=== PATIENT | female | born 2000 | race Two or more races ===

== ENCOUNTER 2024-02-07 08:53 | Outpatient (REF) | payer OTHER, SELFPAY ==
[2024-02-07 09:02] LABS: Bilirubin Urine NEGATIVE (NEGATIVE); Blood Urine NEGATIVE (NEGATIVE); Clarity Urine CLEAR (CLEAR); Color Urine LT. YELLOW (YELLOW); Glucose Urine UA NEGATIVE (NEGATIVE); Ketones Urine NEGATIVE (NEGATIVE); Leukocyte Esterase Urine TRACE (NEGATIVE); Nitrite Urine NEGATIVE (NEGATIVE); Protein Urine NEGATIVE (NEG/TRACE); Specific Gravity Urine 1.025 (1.005-1.025); Urobilinogen Urine 0.2 EU/dL (0.2-1.0)
[2024-02-07 09:17] LABS: RBC Urine 0-2 #/HPF (0-2)
[2024-02-07 09:18] LABS: Bacteria Urine TRACE #/HPF (NONE SEEN); Cast Seen? NONE SEEN #/LPF (NONE SEEN); Crystals Seen? None Seen #/HPF (None Seen); Mucus Urine NONE SEEN (NONE SEEN); Squamous Epithelial Cell Urine MODERATE #/LPF (NONE/RARE)
== END 2024-02-07 08:54 | disposition home or self-care (01) ==
LOC: LAB 08:53
PROVIDERS: PCP Nurse Practitioner Family; Visit Provider Nurse Practitioner Family
DX: R30.0 Dysuria (principal)
CPT/HCPCS: 81001; 87086

== ENCOUNTER 2024-02-22 08:25 | Outpatient (OUT) | payer OTHER, SELFPAY ==
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
--- NOTE | 2024-02-22 08:28 | US_ITS ---
The [address] [address] Patient Name: NICOLETTE CLEVELAND MRN: [id number] date: 2000 Sex: F Assigned Patient Location: Current Patient Location: Accession/Order Number: [id number] Exam Date: 02/22/2024 08:30 Report Date: 02/22/2024 13:07 At the request of: LUPE RICHMOND Procedure: US renal bladder EXAMINATION: US renal bladder HISTORY: Urgency Of Urinary R39.15 COMPARISON: No relevant comparison available. TECHNIQUE: Ultrasound examination was performed of the kidneys and urinary bladder. FINDINGS: RIGHT KIDNEY: Contains a few nonobstructing 3 mm stones. Normal renal cortical parenchymal echogenicity. Color Doppler demonstrates blood flow within the kidney. Kidney: 10.3 x 5.0 x 6.2 cm LEFT KIDNEY: No evidence of pelvocaliectasis, mass, or calculi. Normal renal cortical parenchymal echogenicity. Color Doppler demonstrates blood flow within the kidney. Kidney: 11.3 x 5.5 x 5.1 cm BLADDER: No visible wall thickening, mass, or calculi. Post void residual: 5 mL URETERAL JETS: Visualized bilaterally. US/US renal bladder IMPRESSION: 1. Nonobstructing right nephrolithiasis. 2. Otherwise left kidney and urinary bladder. Electronically authenticated by: LOW LE Date: 02/22/2024 13:07
[2024-02-22 10:15] LABS: Bilirubin Urine NEGATIVE (NEGATIVE); Blood Urine NEGATIVE (NEGATIVE); Clarity Urine CLEAR (CLEAR); Color Urine LT. YELLOW (YELLOW); Glucose Urine UA NEGATIVE (NEGATIVE); Ketones Urine NEGATIVE (NEGATIVE); Leukocyte Esterase Urine NEGATIVE (NEGATIVE); Nitrite Urine NEGATIVE (NEGATIVE); Protein Urine NEGATIVE (NEG/TRACE); Specific Gravity Urine <=1.005 (1.005-1.025); Urobilinogen Urine 0.2 EU/dL (0.2-1.0)
[2024-02-22 10:25] LABS: Bacteria Urine NONE SEEN #/HPF (NONE SEEN); Mucus Urine NONE SEEN (NONE SEEN); RBC Urine NONE SEEN #/HPF (0-2); Squamous Epithelial Cell Urine FEW #/LPF (NONE/RARE); WBC Urine NONE SEEN #/HPF (NONE SEEN)
== END 2024-02-22 08:26 | disposition home or self-care (01) ==
LOC: US 08:25
PROVIDERS: PCP Nurse Practitioner Family; Visit Provider Nurse Practitioner Family
DX: R39.15 Urgency of urination (principal); R35.0 Frequency of micturition; N20.0 Calculus of kidney
CPT/HCPCS: 76770; 81001; 87086

== ENCOUNTER 2024-06-27 09:11 | Outpatient (OUT) | payer OTHER, SELFPAY ==
--- OUTSIDE RECORDS SUMMARY | 2024-06-27 09:28 | XMS_ITS | CCD ---
Author Organization [facility] Care Team Providers Care Geoduck Diver Name Role Phone Charity Fenton Attending Provider [phone] Maritza Singh Unavailable NON STAFF Primary Care Provider UnavailCARLEE Al Attending Provider NON STAFF Primary Care Provider UnavailDO Richi Eduardo Attending Provider NON STAFF Primary Care Unavailable Richi Liu Admitting Unavailable Richi Liu Attending Unavailable NON STAFF Primary Care Unavailable Maritza Singh Admitting Unavailable Maritza Singh Attending Unavailable JOCELINE RICHMOND Primary Care Physician [phone] DANYELLE NOLEN Primary Care Unavailable Divya Steven Attending Unavailable JOCELINE RICHMOND Referring Unavailable DANYELLE NOLEN Primary Care Unavailable Unavailable Primary Care Provider UnavailLY Leo Attending Unavailable Unavailable Unavailable Unavailable Medications Current Medications Medication Drug Class(es) Dates Sig (Normalized) Sig (Original) ciprofloxacin 500 mg oral tablet (1 source) Quinolone Antimicrobial Start: 07-18-2024 End: 07-18-2024 ciprofloxacin HCl 500 mg tab(s) (CIPRO) escitalopram 10 mg oral tablet (1 source) Serotonin Reuptake Inhibitor Start: 04-17-2024 take 1 tablet by mouth once daily Lexapro 10 mg Tab 10 mg = 1 tab(s), Oral, Daily, Refills(s) 0 Start Date: 04/17/24 Status: Ordered iv contrast (will be provided with radiology test) (2 sources) Start: 06-07-2024 iv contrast (will be provided with radiology test) Indications: Recurrent UTI , Urinary frequency , Urinary tract infection without hematuria, site unspecified CT Urogram WO/W Inject, intravenously, once for 1 dose.No IV access, insert saline lock prior to the beginning of sedation, infusion, injection of imaging exam. Discontinue saline lock post exam. If Pt. has a central line or IVAD, may access for administration according to line specific nursing protocol. Once exam is complete flush line and de-access according to line specific nursing protocol in the CT contrast administration guidelines link. 1 Each 0 06/07/2024 Active levonorgestrel 0.856906 mg/hr intrauterine system (4 sources) Progestin, Progestin-containin g Intrauterine Device Start: 04-17-2024 Kyleena 19.5 mg intrauterine device Refills(s) 0 Start Date: 04/17/24 Status: Ordered levonorgestrel ( KYLEENA) 17.5 mcg/24 hr (5 yrs) 19.5 mg IUD 1 Each by INTRAUTERINE route one time only. 0 Active Kyleena 19.5 MG as directed Intrauterine Active lidocaine hydrochloride 0.02 mg/mg topical gel (1 source) Antiarrhythmic, Amide Local Anesthetic Start: 07-18-2024 End: 07-18-2024 lidocaine urojet 2 % 6 mL topical gel (GLYDO) oxybutynin chloride 5 mg oral tablet (1 source) Cholinergic Muscarinic Antagonist Start: 04-17-2024 End: 06-16-2024 take 1 tablet by mouth three times daily as needed oxybutynin 5 mg Tab 5 mg = 1 tab(s), Oral, TID, PRN for urinary discomfort, X 30 day(s), # 30 tab(s), Refills(s) 1, Pharmacy: [id number], 175, cm, 04/17/24 13:52:00 EDT, Height/Length Dosing, 74, kg, 04/17/24 13:52:00 EDT, Weight Dosing Start Date: 04/17/24 Stop Date: 06/16/24 Status: Ordered 1000 ml sodium chloride 9 mg/ml injection (1 source) Start: 06-07-2024 End: 06-07-2024 0.9 % sodium chloride (NACL 0.9%) infusion Indications: Recurrent UTI , Urinary frequency , Urinary tract infection without hematuria, site unspecified Administer at rate defined per CT contrast administration specifications. To be provided with radiology test. 150 mL 0 06/07/2024 06/07/2024 Active Completed/Discontinued Medications Medication Drug Class(es) Dates [...] MG Oral for 5 Days Not-Taking nystatin 705078 unt/ml oral suspension (1 source) Polyene Antifungal Start: 06-08-2020 take 4 mL by mouth twice daily Nystatin 350359 UNIT/ML 4 ml Mouth/Throat Twice a day for 10 day(s) Swish and spit May, Not-Taking Sertraline (1 source) Serotonin Reuptake Inhibitor Zoloft Not-Taking Problems Active Problems Problem Classification Problem Date Documented Da te Episodic/Chronic Anxiety disorders (1 source) Generalized anxiety disorder 02-08-2020 Chronic Calculus of urinary tract (2 sources) Kidney stone; Translations: [Calculus of kidney] Onset: 04-16-2024 Episodic Genitourinary symptoms and ill-defined conditions (7 sources) Dysuria; Translations: [Dysuria] Onset: 02-24-2023 Episodic Mood disorders (1 source) Mild depression 06-27-2020 Chronic Mycoses (2 sources) Candidiasis of mouth; Translations: [Candidiasis of vagina] Resolved: 06-26-2019 06-27-2020 Episodic Other diseases of bladder and urethra (1 source) Disorder of bladder; Translations: [Other specified disorders of bladder] Onset: 04-17-2024 Chronic Other diseases of bladder and urethra (1 source) Spasm of bladder 04-17-2024 Chronic Otitis media and related conditions (1 source) Acute right otitis media 06-27-2020 Episodic Pneumonia (except that caused by tuberculosis or sexually transmitted disease) (1 source) Pneumonia 02-08-2014 Episodic Urinary tract infections (3 sources) Recurrent urinary tract infection; Translations: [Urinary tract infection, site not specified] Onset: 06-07-2024 06-07-2024 Episodic Past or Other Problems Problem Classification Problem Date Documented Date Episodic/Chronic Inflammatory diseases of female pelvic organs (1 source) Abscess of vulva Resolved: 06-26-2019 06-27-2019 Episodic Other ear and sense organ disorders (1 source) Perichondritis of pinna Resolved: 06-26-2019 06-27-2019 Episodic Other female genital disorders (1 source) Vaginal discharge Resolved: 06-26-2019 06-27-2019 Episodic Other female genital disorders (1 source) Vaginal lesion Resolved: 06-26-2019 06-27-2019 Episodic Spondylosis; intervertebral disc disorders; other back problems (1 source) Backache Resolved: 06-26-2019 06-27-2019 Episodic Unclassified (1 source) Patient encounter status Resolved: 06-12-2019 06-13-2019 Results Test Name Value Interpretation Reference Range Facility [facility] 06-07-2024 CNOV Office Visit (UROLLN ) SHANDRA BRIDGES ([id number]) 2000 F Date Time Provider Department 06/07/24 3:40 PM LY STEEL During your visit today, we recorded the following information about you: Pulse Blood pressure Weight Last Period 71/minute 126/81 74.8 kg 05/26/24 Rome Marlyn 06/07/2024 4:18 PM Signed Shandra Bridges [address] [place] [address] [place] [address] is a 23 year old female with complaints of: Recurrent UTIs with associated frequency and feeling of pressure. HISTORY OF PRESENT ILLNESS: Location: bladder, urethra Pain Character: burning Severity Scale: moderate Duration: recurrent over several months No past medical history on file. No past surgical history on file. No family history on file. MEDICATIONS: No current outpatient medications on file. No current facility-administered medications for this visit. ALLERGY: ALLERGIES Not on File REVIEW OF SYSTEMS GENERAL: No fever, no fatigue and no weight loss. HEAD AND NECK: No headache, no blurred vision and no hearing loss. CARDIOVASCULAR: No chest pain, no palpitations and no leg edema. RESPIRATORY: No cough, wheezing and no shortness of breath. : As indicated in HPI. GI: No epigastric discomfort, no blood in stool and no changes in bowel habits. MUSCLOSKELETAL: No neck pain, no back anin and no joint pain. SKIN: No varicose veins, no rash and no abnormal itching. NEUROLOGICAL: No numbness, no seizures and no tremor. BLOOD: No ekimosis, no hematomas or no bleeding from the gums. PHYSICAL EXAM: GENERAL: Alert, oriented and in no distress. ABDOMEN: Soft, non tender with no masses or organomegaly. No CVA tenderness. HERNIA: Negative EXTREMITIES: No leg edema, No joint swelling GENITALIA: Deferred IMPRESSION (Diagnostic Possibilities) / PLAN (Management Options): Recurrent UTIs + Frequency: Explained the possible causes of her recurrent UTI and the course of treatment we will take: Cystoscopy to discover why she is having the discomfort, especially since one of her cultures came back negative. P= UA + culture + CTU Schedule cystoscopy Medical Decision Making: Data: Unique test(s) ordered: 3+ Risk: Low: Low risk from testing/treatment Medical Decision Making Level: 3 - Low By signing my name below, I, Marlyn Rome, attest that this documentation has been prepared under the direction and in the presence of Dr. Steel. Zaira Dueñasibe Provider Attestation: ILy M.D., personally performed the services described in this documentation. All medical record entries made by the scribe were at my direction and in my presence. I have reviewed the chart and discharge instructions (if applicable) and agree that the record reflects my personal performance and is accurate and complete. Toni Pacheco Sarah 06/07/2024 4:16 PM Addendum UA + culture + CTU Schedule cystoscopy Patricia Lerma RN 06/11/2024 9:46 AM Signed Office note faxed to PCP. Allergies As of Date: 06/07/2024 (No Known Allergies) Date Reviewed: 06/07/2024 Reviewed by: Arlyn Castro MA - Fully Assessed Reason for Visit: Consult [173] Primary Visit Diagnosis:Recurrent UTI [N39.0] Other Visit Diagnoses:Urinary frequency [R35.0] Urinary tract infection without hematuria, site unspecified [N39.0] Order(s):URINALYSIS, WITH MICROSCOPIC [SQUAWMIC] Order #: [id number] FUTURE URINE CULTURE [SQURCUL] Order #: [id number] FUTURE CT UROGRAM WO/W IVCON [[id number]] Order #: [id number] FUTURE iv contrast (will be provided with radiology test)CT Urogram WO/W Inject, intravenously, once for 1 dose.No IV access, insert saline lock prior to the beginning of sedation, infusion, injection of imaging exam. Discontinue saline lock post exam. If Pt. has a central line or IVAD, may access for administration according to line specific nursing protocol. Once exam is complete flush line and de-access according to line specific nursing protocol in the CT contrast administration guidelines link.Disp: 1 EachRfl: 0 [] 0.9 % sodium chloride (NACL 0.9%) infusionAdminister at rate defined per CT contrast administration specifications. To be provided with radiology test.Disp: 150 mLRfl: 0 Prescriptions as of 06/15/2024 - levonorgestrel (KYLEENA) 17.5 mcg/24 hr (5 yrs) 19.5 mg IUD 1 Each by INTRAUTERINE route one time only. - iv contrast (will be provided with radiology test) CT Urogram WO/W Inject, intravenously, once for 1 dose.No IV access, insert saline lock prior to the beginning of sedation, infusion, injection of imaging exam. Discontinue saline lock post exam. If Pt. has a central line or IVAD, may access for administration according to line specific nursing sean (more content not included)... [facility] Forms [id number]#1 .00TIFF Normal [facility] Physician Referralon 024 Physician Referral [id number]# 1.00TIFF Normal [facility] RAD - Ultrasound Reporton RAD - Ultrasound Report [id number]. 00TIFF Normal [facility] Screenson 04-18-2024 Screens [id number]# 1.00TIFF Normal [facility] Patient Educationon 04-17-20 Patient Education Urology Urinary Frequency, Adult Urinary frequency means urinating more often than usual. You may urinate every 1?2 hours even though you drink a normal amount of fluid and do not have a bladder infection or condition. Although you urinate more often than normal, the total amount of urine produced in a day is normal. With urinary frequency, you may have an urgent need to urinate often. The stress and anxiety of needing to find a bathroom quickly can make this urge worse. This condition may go away on its own, or you may need treatment at home. Home treatment may include bladder training, exercises, taking medicines, or making changes to your diet. Follow these instructions at home: Bladder health Your health care provider will tell you what to do to improve bladder health. You may be told to: ? Keep a bladder diary. Keep track of: ? What you eat and drink. ? How often you urinate. ? How much you urinate. ? Follow a bladder training program. This may include: ? Learning to delay going to the bathroom. ? Double urinating, also called voiding. This helps if you are not completely emptying your bladder. ? Scheduled voiding. ? Do Kegel exercises. Kegel exercises strengthen the muscles that help control urination, which may help the condition. Eating and drinking Follow instructions from your health care provider about eating or drinking restrictions. You may be told to: ? Avoid caffeine. ? Drink fewer fluids, especially alcohol. ? Avoid drinking in the evening. ? Avoid foods or drinks that may irritate the bladder. These include coffee, tea, soda, artificial sweeteners, citrus, tomato-based foods, and chocolate. ? Eat foods that help prevent or treat constipation. Constipation can make urinary frequency worse. You may need to take these actions to prevent or treat constipation: ? Drink enough fluid to keep your urine pale yellow. ? Take pgmp-nyy-aokjndu or prescription medicines. ? Eat foods that are high in fiber, such as beans, whole grains, and fresh fruits and vegetables. ? Limit foods that are high in fat and processed sugars, such as fried or sweet foods. General instructions ? Take gllz-qqg-swsuair and prescription medicines only as told by your health care provider. ? Keep all follow-up visits. This is important. Contact a health care provider if: ? You start urinating more often. ? You feel pain or irritation when you urinate. ? You notice blood in your urine. ? Your urine looks cloudy. ? You develop a fever. ? You begin vomiting. Get help right away if: ? You are unable to urinate. Summary ? Urinary frequency means urinating more often than usual. With urinary frequency, you may urinate every 1?2 hours even though you drink a normal amount of fluid and do not have a bladder infection or other bladder condition. ? Your health care provider may recommend that you keep a bladder diary, follow a bladder training program, or make dietary changes. ? If told by your health care provider, do Kegel exercises to strengthen the muscles that help control urination. ? Take ymgc-zlp-gbsmvek and prescription medicines only as told by your health care provider. ? Contact a health care provider if your symptoms do not improve or get worse. This information is not intended to replace advice given to you by your health care provider. Make sure you discuss any questions you have with your health care provider. Document Revised: 06/19/2021 Document Reviewed: 06/19/2021 [employer] Patient Education ? 2022 [employer]. Kidney Stones Kidney stones are rock-like masses that form inside of the kidneys. Kidneys are organs that make pee (urine). A kidney stone may move into other parts of the urinary tract, including: ? The tubes that connect the kidneys to the bladder (ureters). ? The bladder. ? The tube that carries urine out of the body (urethra). Kidney stones can cause very bad pain and can block the flow of pee. The stone usually leaves your body (passes) through your pee. You may need to have a doctor take out the stone. What are the causes? Kidney stones may be caused by: ? A condition in which certain glands make too much parathyroid hormone (primary hyperparathyroidism). ? A buildup of a type of crystals in the bladder made of a chemical called uric acid. The body makes uric acid when you eat certain foods. ? Narrowing (stricture) of one or both of the ureters. ? A kidney blockage that you were born with. ? Past surgery on the kidney or the ureters, such as gastric bypass surgery. What increases the risk? You are more likely to develop this condition if: ? You have had a kidney stone in the past. ? You have a family history of kidney stones. ? You do not drink enough water. ? You eat a diet that is high in protein, salt (sodium), or sugar. ? You are overweight or very overweight (obese). What are the signs or sympt (more content not included)... Normal [facility] Alanine aminotransferase [En zymatic activity/volume] in Serum or PlasmaOrdered By: Richi Liu on 09-20-2023 ALT [Catalytic activity/Vol] 9 U/L 7-52 [facility] Albumin [Mass/volume] in Ser um or Plasma by Bromocresol green (BCG) dye binding methoOrdered By: Richi Liu on 09-20-2023 Albumin BCG dye [Mass/Vol] 4.3 g/dL 3.5-5.7 [facility] Alkaline phosphatase [Enzyma tic activity/volume] in Serum or PlasmaOrdered By: Richi Liu on 09-20-2023 ALP [Catalytic activity/Vol] 51 U/L 34-104 [facility] Aspartate aminotransferase [ Enzymatic activity/volume] in Serum or PlasmaOrdered By: Richi Liu on 09-20-2023 AST [Catalytic activity/Vol] 15 U/L 13-39 [facility] Basophils Auto (Bld) [#/Vol] Ordered By: Richi Liu on 09-20-2023 Basophils (Bld) [#/Vol] 0.0 10*3/uL 0.0-0.2 [facility] Basophils/100 WBC Auto (Bld) Ordered By: Richi Liu on 09-20-2023 Basophils/100 WBC (Bld) 0.5 % . [facility] Bilirubin.total [Mass/volume ] in Serum or PlasmaOrdered By: Richi Liu on 09-20-2023 Bilirubin [Mass/Vol] 0.7 mg/dL 0.3-1.0 [facility] Calcium [Mass/volume] in Ser um or PlasmaOrdered By: Richi Liu on 09-20-2023 Calcium [Mass/Vol] 9.2 mg/dL 8.6-10.3 [facility] Carbon dioxide, total [Moles /volume] in Serum or PlasmaOrdered By: Richi Liu on 09-20-2023 CO2 [Moles/Vol] 28.5 mmol/L 21.0-31.0 [facility] Chloride [Moles/volume] in S mariluz or PlasmaOrdered By: Richi Liu on 09-20-2023 Chloride [Moles/Vol] 107 mmol/L 98-107 [facility] Cholesterol [Mass/volume] in Serum or PlasmaOrdered By: Richi Liu on 09-20-2023 Cholesterol [Mass/Vol] 154 mg/dL 140-200 [facility] Comment on above: Chol less than 200 m g/dl low riskChol 201-239 mg/dl borderline riskChol 240 mg/dl and greater high risk Cholesterol in LDL Calc [Mas s/Vol]Ordered By: Richi Liu on 09-20-2023 Cholesterol in LDL [Mass/Vol] 87 mg/dL 0-100 [facility] Comment on above: LDL ATP III CLASSIFI CATIONLDL less than 100 mg/dL OptimalLDL 100-129 mg/dL Near or above optimalLDL 130-159 mg/dL Borderline highLDL 160-189 mg/dL HighLDL greater than 189 mg/dL Very high Cholesterol in VLDL Calc [Ma ss/Vol]Ordered By: Richi Liu on 09-20-2023 Cholesterol in VLDL [Mass/Vol] 13 mg/dL [facility] Creatinine [Mass/volume] in Serum or PlasmaOrdered By: Richi Liu on 09-20-2023 Creatinine [Mass/Vol] 0.67 mg/dL 0.60-1.20 [facility] Employee Comp Metabolic Pane armond 09-20-2023 Albumin [Mass/Vol] 4.3 g/dL Normal 3.5-5.7 [facility] Comment on above: Performed By: #### P ILLAR CBC, PILLAR LIPID, PILLAR TSH, PILLAR CMP #### [address] #### NICOTINE QUAL #### [facility] , Albumin/Globulin [Mass ratio] 1.7 {ratio} Normal [facility] Comment on above: Performed By: #### P ILLAR CBC, PILLAR LIPID, PILLAR TSH, PILLAR CMP #### [facility] [address] [place] [address] [place] #### NICOTINE QUAL #### [facility] , ALP [Catalytic activity/Vol] 51 U/L Normal 34-104 [facility] Comment on above: Performed By: #### P ILLAR CBC, PILLAR LIPID, PILLAR TSH, PILLAR CMP #### [facility] [address] [place] [address] [place] #### NICOTINE QUAL #### [facility] , ALT [Catalytic activity/Vol] 9 U/L Normal 7-52 [facility] Comment on above: Performed By: #### P ILLAR CBC, PILLAR LIPID, PILLAR TSH, PILLAR CMP #### [facility] [address] [place] [address] [place] #### NICOTINE QUAL #### [facility] , Anion gap [Moles/Vol] 8.9 mmol/L Normal 6.0-15.0 [facility] Comment on above: Performed By: #### P ILLAR CBC, PILLAR LIPID, PILLAR TSH, PILLAR CMP #### [facility] [address] [place] [address] [place] #### NICOTINE QUAL #### [facility] , AST [Catalytic activity/Vol] 15 U/L Normal 13-39 [facility] Comment on above: Performed By: #### P ILLAR CBC, PILLAR LIPID, PILLAR TSH, PILLAR CMP #### [facility] [address] [place] [address] #### NICOTINE QUAL #### [facility] , Bilirubin [Mass/Vol] 0.7 mg/dL Normal 0.3-1.0 [facility] Comment on above: Performed By: #### P ILLAR CBC, PILLAR LIPID, PILLAR TSH, PILLAR CMP #### [facility] [address] [place] [address] [place] #### NICOTINE QUAL #### [facility] , Calcium [Mass/Vol] 9.2 mg/dL Normal 8.6-10.3 [facility] Comment on above: Performed By: #### P ILLAR CBC, PILLAR LIPID, PILLAR TSH, PILLAR CMP #### [facility] [address] [place] [address] [place] #### NICOTINE QUAL #### [facility] , Chloride [Moles/Vol] 107 mmol/L Normal 98-107 [facility] Comment on above: Performed By: #### P ILLAR CBC, PILLAR LIPID, PILLAR TSH, PILLAR CMP #### [facility] [address] [place] [address] [place] #### NICOTINE QUAL #### [facility] , CO2 [Moles/Vol] 28.5 mmol/L Normal 21.0-31.0 [facility] Comment on above: Performed By: #### P ILLAR CBC, PILLAR LIPID, PILLAR TSH, PILLAR CMP #### [facility] [address] [place] [address] [place] #### NICOTINE QUAL #### [facility] , Creatinine [Mass/Vol] 0.67 mg/dL Normal 0.60-1.20 [facility] Comment on above: Performed By: #### P ILLAR CBC, PILLAR LIPID, PILLAR TSH, PILLAR CMP #### [facility] [address] [place] [address] [place] #### NICOTINE QUAL #### [facility] , GFR/1.73 sq M.predicted MDRD (S/P/Bld) [Vol rate/Area] mL/min/{1.73_m2} Normal [facility] Comment on above: Performed By: #### P ILLAR CBC, PILLAR LIPID, PILLAR TSH, PILLAR CMP #### [facility] [address] [place] [address] [place] #### NICOTINE QUAL #### [facility] , Globulin (S) [Mass/Vol] 2.5 g/dL Normal [facility] Comment on above: Performed By: #### P ILLAR CBC, PILLAR LIPID, PILLAR TSH, PILLAR CMP #### [facility] [address] [place] [address] [place] #### NICOTINE QUAL #### [facility] , Glucose [Mass/Vol] 87 mg/dL Normal 70-100 [facility] Comment on above: Performed By: #### P ILLAR CBC, PILLAR LIPID, PILLAR TSH, PILLAR CMP #### [facility] [address] [place] [address] [place] #### NICOTINE QUAL #### [facility] , Potassium [Moles/Vol] 4.4 mmol/L Normal 3.5-5.1 [facility] Comment on above: Performed By: #### P ILLAR CBC, PILLAR LIPID, PILLAR TSH, PILLAR CMP #### [facility] [address] [place] [address] #### NICOTINE QUAL #### [facility] , Protein [Mass/Vol] 6.8 g/dL Normal 6.4-8.9 [facility] Comment on above: Performed By: #### P ILLAR CBC, PILLAR LIPID, PILLAR TSH, PILLAR CMP #### [facility] [address] [place] [address] #### NICOTINE QUAL #### [facility] , Sodium [Moles/Vol] 140 mmol/L Normal 136-145 [facility] Comment on above: Performed By: #### P ILLAR CBC, PILLAR LIPID, PILLAR TSH, PILLAR CMP #### [address] #### NICOTINE QUAL #### [facility] , Urea nitrogen [Mass/Vol] 10 mg/dL Normal 7-25 [facility] Comment on above: Performed By: #### P ILLAR CBC, PILLAR LIPID, PILLAR TSH, PILLAR CMP #### [address] #### NICOTINE QUAL #### [facility] , Employee Complete Blood Coun ton 09-20-2023 Basophils (Bld) [#/Vol] 0.0 10*3/uL Normal 0.0-0.2 [facility] Comment on above: Result Comment: PERF ORMED BY: [place] [id number] PATHOLOGIST DIRECTOR DATA ANALYTICS ALANIS SANCHEZ M.D. Performed By: #### P ILLAR CBC, PILLAR LIPID, PILLAR TSH, PILLAR CMP #### [facility] [address] [place] [address] #### NICOTINE QUAL #### [facility] , Basophils/100 WBC (Bld) 0.5 % Normal . [facility] Comment on above: Performed By: #### P ILLAR CBC, PILLAR LIPID, PILLAR TSH, PILLAR CMP #### [facility] [address] [place] [address] #### NICOTINE QUAL #### [facility] , Eosinophils (Bld) [#/Vol] 0.2 10*3/uL Normal 0.0-0.45 [facility] Comment on above: Performed By: #### P ILLAR CBC, PILLAR LIPID, PILLAR TSH, PILLAR CMP #### [facility] [address] [place] [address] [place] #### NICOTINE QUAL #### [facility] , Eosinophils/100 WBC (Bld) 4.8 % Normal . [facility] Comment on above: Performed By: #### P ILLAR CBC, PILLAR LIPID, PILLAR TSH, PILLAR CMP #### [address] #### NICOTINE QUAL #### [facility] , Erythrocyte distribution width (RBC) [Ratio] 12.9 % Normal 11.9-15.3 [facility] Comment on above: Performed By: #### P ILLAR CBC, PILLAR LIPID, PILLAR TSH, PILLAR CMP #### [facility] [address] [place] [address] [place] #### NICOTINE QUAL #### [facility] , Hematocrit (Bld) [Volume fraction] 41.0 % Normal 34.0-46.4 [facility] Comment on above: Performed By: #### P ILLAR CBC, PILLAR LIPID, PILLAR TSH, PILLAR CMP #### [facility] [address] [place] [address] [place] #### NICOTINE QUAL #### [facility] , Hemoglobin (Bld) [Mass/Vol] 13.9 g/dL Normal 11.8-15.4 [facility] Comment on above: Performed By: #### P ILLAR CBC, PILLAR LIPID, PILLAR TSH, PILLAR CMP #### [facility] [address] [place] [address] [place] #### NICOTINE QUAL #### [facility] , Lymphocytes (Bld) [#/Vol] 1.8 10*3/uL Normal 1.00-4.8 [facility] Comment on above: Performed By: #### P ILLAR CBC, PILLAR LIPID, PILLAR TSH, PILLAR CMP #### [facility] [address] [place] [address] #### NICOTINE QUAL #### [facility] , Lymphocytes/100 WBC (Bld) 35.3 % Normal . [facility] Comment on above: Performed By: #### P ILLAR CBC, PILLAR LIPID, PILLAR TSH, PILLAR CMP #### [facility] [address] [place] [address] #### NICOTINE QUAL #### [facility] , MCH (RBC) [Entitic mass] 30.9 pg Normal 24.7-34.3 [facility] Comment on above: Performed By: #### P ILLAR CBC, PILLAR LIPID, PILLAR TSH, PILLAR CMP #### [facility] [address] [place] [address] #### NICOTINE QUAL #### [facility] , MCV (RBC) [Entitic vol] 90.9 fL Normal 80-100 [facility] Comment on above: Performed By: #### P ILLAR CBC, PILLAR LIPID, PILLAR TSH, PILLAR CMP #### [facility] [address] [place] [address] [place] #### NICOTINE QUAL #### [facility] , Mean Corpuscular HGB Conc 33.9 g/dL Normal 32.0-35.0 [facility] Comment on above: Performed By: #### P ILLAR CBC, PILLAR LIPID, PILLAR TSH, PILLAR CMP #### [facility] [address] [place] [address] [place] #### NICOTINE QUAL #### [facility] , Monocytes (Bld) [#/Vol] 0.4 10*3/uL Normal 0.0-0.8 [facility] Comment on above: Performed By: #### P ILLAR CBC, PILLAR LIPID, PILLAR TSH, PILLAR CMP #### [facility] [address] [place] [address] [place] #### NICOTINE QUAL #### [facility] , Monocytes/100 WBC (Bld) 7.8 % Normal . [facility] Comment on above: Performed By: #### P ILLAR CBC, PILLAR LIPID, PILLAR TSH, PILLAR CMP #### [facility] [address] [place] [address] #### NICOTINE QUAL #### [facility] , Neutrophils (Bld) [#/Vol] 2.7 10*3/uL Normal 1.8-7.7 [facility] Comment on above: Performed By: #### P ILLAR CBC, PILLAR LIPID, PILLAR TSH, PILLAR CMP #### [facility] [address] [place] [address] [place] #### NICOTINE QUAL #### [facility] , Neutrophils/100 WBC (Bld) 51.6 % Normal . [facility] Comment on above: Performed By: #### P ILLAR CBC, PILLAR LIPID, PILLAR TSH, PILLAR CMP #### [facility] [address] [place] [address] #### NICOTINE QUAL #### [facility] , NRBC% 0.2 /100{WBC} Normal 0-0.5 [facility] Comment on above: Performed By: #### P ILLAR CBC, PILLAR LIPID, PILLAR TSH, PILLAR CMP #### [facility] [address] [place] [address] [place] #### NICOTINE QUAL #### [facility] , Platelet mean volume (Bld) [Entitic vol] 9.4 fL Normal 6.3-10.7 [facility] Comment on above: Performed By: #### P ILLAR CBC, PILLAR LIPID, PILLAR TSH, PILLAR CMP #### [facility] [address] [place] [address] [place] #### NICOTINE QUAL #### [facility] , Platelets (Bld) [#/Vol] 230 10*3/uL Normal 150-450 [facility] Comment on above: Performed By: #### P ILLAR CBC, PILLAR LIPID, PILLAR TSH, PILLAR CMP #### [facility] [address] [place] [address] [place] #### NICOTINE QUAL #### [facility] , RBC (Bld) [#/Vol] 4.52 10*6/uL Normal 3.60-5.00 [facility] Comment on above: Performed By: #### P ILLAR CBC, PILLAR LIPID, PILLAR TSH, PILLAR CMP #### [facility] [address] [place] [address] #### NICOTINE QUAL #### [facility] , WBC (Bld) [#/Vol] 5.1 10*3/uL Normal 3.8-11.6 [facility] Comment on above: Performed By: #### P ILLAR CBC, PILLAR LIPID, PILLAR TSH, PILLAR CMP #### [facility] [address] [place] [address] #### NICOTINE QUAL #### [facility] , Employee Lipid Profileon Cholesterol [Mass/Vol] 154 mg/dL Normal 140-200 [facility] Comment on above: Result Comment: Chol less than 200 mg/dl low risk Chol 201-239 mg/dl borderline risk Chol 240 mg/dl and greater high risk Performed By: #### P ILLAR CBC, PILLAR LIPID, PILLAR TSH, PILLAR CMP #### [facility] [address] [place] [address] [place] #### NICOTINE QUAL #### [facility] , Cholesterol in HDL [Mass/Vol] 53 mg/dL Normal 23-92 [facility] Comment on above: Result Comment: HDL CHOL ATP-III CLASSIFICATION Cardiovascular Risk HDL > or equal to 60 mg/dL LOW HDL < 40 mg/dL HIGH Performed By: #### P ILLAR CBC, PILLAR LIPID, PILLAR TSH, PILLAR CMP #### [place] [address] [place] #### NICOTINE QUAL #### [facility] , Cholesterol.total/Yoana sterol in HDL [Mass ratio] 2.9 {ratio} Normal <5.0 [facility] Comment on above: Performed By: #### P ILLAR CBC, PILLAR LIPID, PILLAR TSH, PILLAR CMP #### [address] #### NICOTINE QUAL #### [facility] , LDL Cholesterol,Calculated 87 mg/dL Normal 0-100 [facility] Comment on above: Result Comment: LDL ATP III CLASSIFICATION LDL less than 100 mg/dL Optimal LDL 100-129 mg/dL Near or above optimal LDL 130-159 mg/dL Borderline high LDL 160-189 mg/dL High LDL greater than 189 mg/dL Very high Performed By: #### P ILLAR CBC, PILLAR LIPID, PILLAR TSH, PILLAR CMP #### [place] [address] [place] #### NICOTINE QUAL #### [facility] , Triglyceride w/Reflex 69 mg/dL Normal 0-149 [facility] Comment on above: Result Comment: TRIG ATP III CLASSIFICATION TRIG less than 150 mg/dL Normal TRIG 150-199 mg/dL Borderline high TRIG 200-500 mg/dL High TRIG greater than 500 mg/dL Very high Standard traceable to the Center for Disease Conrtrol and Prevention (CDC) test method. Performed By: #### P ILLAR CBC, PILLAR LIPID, PILLAR TSH, PILLAR CMP #### [place] [address] [place] #### NICOTINE QUAL #### [facility] , VLDL CHOLESTEROL 13 mg/dL Normal [facility] Comment on above: Performed By: #### P ILLAR CBC, PILLAR LIPID, PILLAR TSH, PILLAR CMP #### [facility] [address] #### NICOTINE QUAL #### [facility] , Employee Thyroid Stim Hormon daniel 09-20-2023 Employee Thyroid Stim Hormone 1.58 u[iU]/mL Normal 0.45-5.33 [facility] Comment on above: Result Comment: PERF ORMED BY: [place] [id number] PATHOLOGIST DIRECTOR DATA ANALYTICS ALANIS SANCHEZ M.D. Performed By: #### P ILLAR CBC, PILLAR LIPID, PILLAR TSH, PILLAR CMP #### [facility] [address] [place] [address] #### NICOTINE QUAL #### [facility] , Eosinophils Auto (Bld) [#/Vo l]Ordered By: Richi Liu on 09-20-2023 Eosinophils (Bld) [#/Vol] 0.2 10*3/uL 0.0-0.45 [facility] Eosinophils/100 WBC Auto (Bl d)Ordered By: Richi Liu on 09-20-2023 Eosinophils/100 WBC (Bld) 4.8 % . [facility] Erythrocyte distribution wid th Auto (RBC) [Ratio]Ordered By: Richi Liu on 09-20-2023 Erythrocyte distribution width (RBC) [Ratio] 12.9 % 11.9-15.3 [facility] Globulin Calc (S) [Mass/Vol] Ordered By: Richi Liu on 09-20-2023 Globulin (S) [Mass/Vol] 2.5 g/dL [facility] Glucose [Mass/volume] in Ser um or PlasmaOrdered By: Richi Liu on 09-20-2023 Glucose [Mass/Vol] 87 mg/dL 70-100 [facility] Hematocrit Auto (Bld) [Volum e fraction]Ordered By: Richi iLu on 09-20-2023 Hematocrit (Bld) [Volume fraction] 41.0 % 34.0-46.4 [facility] Hemoglobin [Mass/volume] in BloodOrdered By: Richi Liu on 09-20-2023 Hemoglobin (Bld) [Mass/Vol] 13.9 g/dL 11.8-15.4 [facility] Leukocytes [#/volume] correc paulina for nucleated erythrocytes in Blood by Automated counOrdered By: iRchi Liu on 09-20-2023 WBC corrected for nucl RBC Auto (Bld) [#/Vol] 5.1 10*3/uL 3.8-11.6 [facility] Lymphocytes Auto (Bld) [#/Vo l]Ordered By: Richi Liu on 09-20-2023 Lymphocytes (Bld) [#/Vol] 1.8 10*3/uL 1.00-4.8 [facility] Lymphocytes/100 WBC Auto (Bl d)Ordered By: Richi Liu on 09-20-2023 Lymphocytes/100 WBC (Bld) 35.3 % . [facility] MCH Auto (RBC) [Entitic mass ]Ordered By: Richi Liu on 09-20-2023 MCH (RBC) [Entitic mass] 30.9 pg 24.7-34.3 [facility] MCHC Auto (RBC) [Mass/Vol]Or dered By: Richi Liu on 09-20-2023 MCHC (RBC) [Mass/Vol] 33.9 g/dL 32.0-35.0 [facility] MCV Auto (RBC) [Entitic vol] Ordered By: Richi Liu on 09-20-2023 MCV (RBC) [Entitic vol] 90.9 fL 80-100 [facility] Monocytes Auto (Bld) [#/Vol] Ordered By: Richi Liu on 09-20-2023 Monocytes (Bld) [#/Vol] 0.4 10*3/uL 0.0-0.8 [facility] Monocytes/100 WBC Auto (Bld) Ordered By: Richi Liu on 09-20-2023 Monocytes/100 WBC (Bld) 7.8 % . [facility] Neutrophils Auto (Bld) [#/Vo l]Ordered By: Richi Liu on 09-20-2023 Neutrophils (Bld) [#/Vol] 2.7 10*3/uL 1.8-7.7 [facility] Neutrophils/100 WBC Auto (Bl d)Ordered By: Richi Liu on 09-20-2023 Neutrophils/100 WBC (Bld) 51.6 % . [facility] Nicotine Metabolite, Qualon 09-20-2023 Nicotine Metabolite Negative Normal Cutoff=25 [facility] Comment on above: Result Comment: Perf ormed at: BN - [facility] [address] [id number] Gasket Maker: Driss Ashford MD, Phone: [phone] PERFORMED BY: [facility] [address] [place] [address] PATHOLOGIST DIRECTOR DATA ANALYTICS ALANIS SANCHEZ M.D. Performed By: #### P ILLAR CBC, PILLAR LIPID, PILLAR TSH, PILLAR CMP #### [facility] [address] [place] [address] [place] #### NICOTINE QUAL #### [facility] , No Panel InformationOrdered By: Richi Liu on 09-20-2023 Estimated GFR (CKD-EPI) > 60.0 mL/Min [facility] Creatinine Clearance (Chem N/A [facility] Nucleated erythrocytes [Pres ence] in Blood by Automated countOrdered By: Richi Liu on 09-20-2023 Nucleated RBC Auto Ql (Bld) 0.2 /100{WBC} 0-0.5 [facility] Platelet mean volume Auto (B ld) [Entitic vol]Ordered By: Richi Liu on 09-20-2023 Platelet mean volume (Bld) [Entitic vol] 9.4 fL 6.3-10.7 [facility] Platelets Auto (Bld) [#/Vol] Ordered By: Richi Liu on 09-20-2023 Platelets (Bld) [#/Vol] 230 10*3/uL 150-450 [facility] Potassium [Moles/volume] in Serum or PlasmaOrdered By: Richi Liu on 09-20-2023 Potassium [Moles/Vol] 4.4 mmol/L 3.5-5.1 [facility] Protein [Mass/volume] in Ser um or PlasmaOrdered By: Richi Liu on 09-20-2023 Protein [Mass/Vol] 6.8 g/dL 6.4-8.9 [facility] RBC Auto (Bld) [#/Vol]Ordere d By: Richi Liu on 09-20-2023 RBC (Bld) [#/Vol] 4.52 10*6/uL 3.60-5.00 [facility] Serum or plasma albumin/glob ulin mass ratioOrdered By: Richi Liu on 09-20-2023 Albumin/Globulin [Mass ratio] 1.7 {ratio} [facility] Serum or plasma anion gap de terminationOrdered By: Richi Liu on 09-20-2023 Anion gap [Moles/Vol] 8.9 mmol/L 6.0-15.0 [facility] Serum or plasma high density lipoprotein (HDL) cholesterol measurementOrdered By: Richi Liu on 09-20-2023 Cholesterol in HDL [Mass/Vol] 53 mg/dL 23-92 [facility] Comment on above: HDL CHOL ATP-III CLA SSIFICATION Cardiovascular RiskHDL > or equal to 60 mg/dL LOWHDL < 40 mg/dL HIGH Serum or plasma total choles terol/high density lipoprotein (HDL) cholesterol mass ratOrdered By: Richi Liu on 09-20-2023 Cholesterol.total/Yoana sterol in HDL [Mass ratio] 2.9 {ratio} <5.0 [facility] Sodium [Moles/volume] in Ser um or PlasmaOrdered By: Richi Liu on 09-20-2023 Sodium [Moles/Vol] 140 mmol/L 136-145 [facility] Thyrotropin [Units/volume] i n Serum or PlasmaOrdered By: Richi Liu on 09-20-2023 TSH Qn 1.58 m[IU]/L 0.45-5.33 [facility] Triglyceride [Mass/volume] i n Serum or PlasmaOrdered By: Richi Liu on 09-20-2023 Triglyceride [Mass/Vol] 69 mg/dL 0-149 [facility] Comment on above: TRIG ATP III CLASSIF ICATIONTRIG less than 150 mg/dL NormalTRIG 150-199 mg/dL Borderline highTRIG 200-500 mg/dL High TRIG greater than 500 mg/dL Very highStandard traceable to the Center for Disease Conrtrol and Prevention (CDC) test method. Urea nitrogen [Mass/volume] in Serum or PlasmaOrdered By: Richi Liu on 09-20-2023 Urea nitrogen [Mass/Vol] 10 mg/dL 7- [facility] WBC Auto (Bld) [#/Vol]Ordere d By: Richi Liu on 09-20-2023 WBC (Bld) [#/Vol] 5.1 10*3/uL 3.8-11.6 [facility] Urinalysis - AUTOMATEDon Appearance (U) clear [employer] Other Bilirubin Ql (U) Negative [employer] Other Color (U) pink [employer] Other Glucose Ql (U) Negative [employer] Other Hemoglobin Ql (U) large [employer] Other Ketones Ql (U) Negative [employer] Other Leukocyte esterase Test strip Ql (U) trace [employer] Other Nitrite Ql (U) Negative [employer] Other pH (U) 6.5 [pH] [employer] Other Protein Ql (U) 30mg [employer] Other Specific gravity (U) [Rel density] 1.010 [employer] Other Urobilinogen (U) [Mass/Vol] 0.2 mg/dL [employer] Other Urinalysis - AUTOMATED No rt [employer] Other Urine Cultureon 02-24-2023 Bacteria identified Cx Nom (U) Reason for Exam Dysuria Urine 50,000 colonies/ml mixed bacterial skin contaminants 2 Days PERFORMED BY: [place] [id number] PATHOLOGIST DIRECTOR DATA ANALYTICS ALANIS SANCHEZ M.D. Normal [facility] Comment on above: Performed By: #### C UU #### [address] Body fluid albumin measureme nt (mass/volume)on 01-20-2021 Albumin (Body fld) [Mass/Vol] 4.0 g/dL 3.2-5.5 [facility] Cholesterol [Mass/volume] in Serum or Plasmaon 01-20-2021 Cholesterol [Mass/Vol] 167 mg/dL 140-200 [facility] Comment on above: Chol less than 200 m g/dl low riskChol 201-239 mg/dl borderline riskChol 240 mg/dl and greater high risk Cholesterol in LDL [Mass/vol ume] in Serum or Plasma by calculationon 01-20-2021 Cholesterol in LDL [Mass/Vol] 99 mg/dL 0-100 [facility] Comment on above: LDL ATP III CLASSIFI CATIONLDL less than 100 mg/dL OptimalLDL 100-129 mg/dL Near or above optimalLDL 130-159 mg/dL Borderline highLDL 160-189 mg/dL HighLDL greater than 189 mg/dL Very high Cholesterol in VLDL [Mass/vo lume] in Serum or Plasma by calculationon 01-20-2021 Cholesterol in VLDL [Mass/Vol] 15 mg/dL [facility] Estimated glomerular filtrat ion rate (GFR) non- Americanon 01-20-2021 GFR/1.73 sq M predicted among non-blacks MDRD (S/P/Bld) [Vol rate/Area] mL/min/{1.73_m2} [facility] Metabolic Panelon 01-20-2021 Glucose [Mass/Vol] 85 mg/dL 70-100 [facility] Otheron 01-20-2021 GFR/1.73 sq M.predicted MDRD (S/P/Bld) [Vol rate/Area] mL/min/{1.73_m2} [facility] Comment on above: GFR estimated refere nce range: According to KDOQI guidelines, <60 ml/min/1.73m2 is sufficient to diagnose a patient with chronic kidney disease. Pharmacy Creatinine Clearance (Chem N/A [facility] Protein [Mass/volume] in Ser um or Plasmaon 01-20-2021 Protein [Mass/Vol] 6.6 g/dL 6.1-7.9 [facility] Serum globulin measurement b y calculation (mass/volume)on 01-20-2021 Globulin (S) [Mass/Vol] 2.6 g/dL [facility] Serum or plasma alanine morton otransferase measurement without P-5'-P (enzymatic activion 01-20-2021 ALT No additional P-5'-P [Catalytic activity/Vol] 14 U/L 10-60 [facility] Serum or plasma albumin/glob ulin mass ratioon 01-20-2021 Albumin/Globulin [Mass ratio] 1.5 {ratio} [facility] Serum or plasma alkaline marek sphatase measurement (enzymatic activity/volume)on 01-20-2021 ALP [Catalytic activity/Vol] 53 U/L 32-92 [facility] Serum or plasma aspartate am inotransferase measurement (enzymatic activity/volume)on 01-20-2021 AST [Catalytic activity/Vol] 18 U/L 10-42 [facility] Serum or plasma calcium emily urement (mass/volume)on 01-20-2021 Calcium [Mass/Vol] 9.0 mg/dL 8.2-10.2 [facility] Serum or plasma chloride angélica surement (moles/volume)on 01-20-2021 Chloride [Moles/Vol] 101 mmol/L 95-114 [facility] Serum or plasma creatinine m easurement with calculation of estimated glomerular filtron 01-20-2021 Creatinine [Mass/Vol] 0.60 mg/dL 0.44-1.03 [facility] Serum or plasma high density lipoprotein (HDL) cholesterol measurementon 01-20-2021 Cholesterol in HDL [Mass/Vol] 53 mg/dL 35-85 [facility] Comment on above: HDL CHOL ATP-III CLA SSIFICATION Cardiovascular RiskHDL > or equal to 60 mg/dL LOWHDL < 40 mg/dL HIGH Serum or plasma potassium me asurement (moles/volume)on 01-20-2021 Potassium [Moles/Vol] 3.7 mmol/L 3.5-5.1 [facility] Serum or plasma sodium measu rement (moles/volume)on 01-20-2021 Sodium [Moles/Vol] 135 mmol/L 136-146 [facility] Serum or plasma total biliru bin measurement (mass/volume)on 01-20-2021 Bilirubin [Mass/Vol] 0.7 mg/dL 0.3-1.2 [facility] Serum or plasma total carbon dioxide measurement (moles/volume)on 01-20-2021 CO2 [Moles/Vol] 24.1 mmol/L 22.0-30.0 [facility] Serum or plasma total choles terol/high density lipoprotein (HDL) cholesterol mass gladys 01-20-2021 Cholesterol.total/Yoana sterol in HDL [Mass ratio] 3.2 {ratio} [facility] Serum or plasma urea nitroge n measurement (mass/volume)on 01-20-2021 Urea nitrogen [Mass/Vol] 9 mg/dL 08-20 [facility] Triglyceride [Mass/volume] i n Serum or Plasmaon 01-20-2021 Triglyceride [Mass/Vol] 75 mg/dL 35-[address] [facility] Comment on above: TRIG ATP III CLASSIF ICATIONTRIG less than 150 mg/dL NormalTRIG 150-199 mg/dL Borderline highTRIG 200-500 mg/dL High TRIG greater than 500 mg/dL Very highStandard traceable to the Center for Disease Conrtrol and Prevention (CDC) test method. Vital Signs Date Time Vital Sign Value Performing Clinician Facility 06-07-2024 16:00-0400 Body weight 74.84 kg Ly Steel MD Work Phone: [facility] 06-07-2024 16:00-0400 Diastolic blood pressure 81 mm[Hg] Ly Steel MD Work Phone: [facility] 06-07-2024 16:00-0400 Heart rate 71 /min Ly Steel MD Work Phone: [facility] 06-07-2024 16:00-0400 Systolic blood pressure 126 mm[Hg] Ly Steel MD Work Phone: [facility] 04-17-2024 13:44-0400 Blood Pressure Location Divya Orzech [facility] 04-17-2024 13:44-0400 Body temperature 98.06 [degF] Divya Orzech [facility] 04-17-2024 13:44-0400 Diastolic blood pressure 82 mm[Hg] Divya Orzech [facility] 04-17-2024 13:44-0400 Heart rate 76 /min Divya Orzech [facility] 04-17-2024 13:44-0400 Respiratory rate 16 /min Divya Orzech [facility] 04-17-2024 13:44-0400 Systolic blood pressure 134 mm[Hg] Divya Orzech [facility] 02-24-2023 18:15-0400 Body height 175.26 cm Maritza Singh Other [employer] Other 02-24-2023 18:15-0400 Body mass index (BMI) [Ratio] 22.59 kg/m2 Maritza Singh Other [employer] Other 02-24-2023 18:15-0400 Body temperature 98.2 [degF] Maritza Singh Other [employer] Other 02-24-2023 18:15-0400 Body weight 69.4 kg Maritza Singh Other [employer] Other 02-24-2023 18:15-0400 Diastolic blood pressure 90 mm[Hg] Maritza Singh Other [employer] Other 02-24-2023 18:15-0400 Respiratory rate 18 /min Maritza Singh Other [employer] Other 02-24-2023 18:15-0400 SaO2% (BldA) [Mass fraction] 99 % Maritza Singh Other [employer] Other 02-24-2023 18:15-0400 Systolic blood pressure 148 mm[Hg] Maritza Singh Other [employer] Other Encounters Encounter Date Encounter Type Care Provider Facility Start: 06-11-2024 Chart abstracting Ly Newberry Work Phone: Urology Start: 06-07-2024 End: 06-07-2024 ambulatory LY STEEL Facility:[facility] Start: 06-07-2024 End: 06-07-2024 Patient encounter procedure Ly Steel MD Work Phone: Urology Comment on above: Recurrent UTI (Prima ry Dx); Urinary frequency; Urinary tract infection without hematuria, site unspecified Start: 04-17-2024 End: 04-18-2024 ambulatory Divya Steven Facility: [facility] Start: 04-17-2024 End: 04-17-2024 Patient encounter procedure Divya Steven [facility] Start: 02-24-2024 ambulatory DANYELLE RINGLE Facility :[facility] Start: 09-20-2023 End: 09-20-2023 ambulatory NON STAFF Facility:[facility] Start: 09-20-2023 End: 09-20-2023 ambulatory NON STAFF [facility] Work Phone: Start: 09-20-2023 End: 09-20-2023 Departed Referred [facility]-Employee Benefit Screening Start: 02-24-2023 End: 02-24-2023 Departed Referred [facility] [place] Work Phone: Start: 02-24-2023 End: 02-24-2023 ambulatory NON STAFF [facility] Work Phone: Start: 02-24-2023 Office outpatient vi sit 15 minutes Maritza Singh [facility] Start: 01-20-2021 End: 01-20-2021 Departed Referred Charity Fenton [facility] [address] Procedures Date Procedure Procedure Detail Performing Clinician None (qualifier value) Rere Steven Plan of Treatment Date Care Activity Detail Author Start: 07-15-2030 Urine microalbumin profile DTaP,Tdap,Td Vaccine (8 - Td or Tdap) [facility] Start: 07-29-2024 Influenza vaccination Influenza Vacc ine (#1) [facility] Start: 07-18-2024 End: 07-18-2024 Patient encounter procedure 07/18/2024 11:00 AM EDT Office Visit Urology [address] [place] [address] Ly Steel MD [address] [place] [address] [facility] Comment on above: [facility] Start: 06-27-2024 End: 06-27-2024 Patient encounter procedure 06/27/2024 11:20 AM EDT Appointment Radiology [address] [place] [address] CT UROGRAM WO/W IVCON Radiology Comment on above: CT UROGRAM WO/W IVCO N Start: 06-07-2024 End: 09-06-2024 Bacteria identified in Urine by Culture URINE CULTURE Microbiology Routine Recurrent UTI Urinary frequency Expected: 06/07/2024 (Approximate), Expires: 09/06/2024 [facility] Comment on above: Expected: 06/07/2024 (Approximate), Expires: 09/06/2024 Start: 06-07-2024 End: 07-08-2025 CT Kidney WO and W contrast IV CT UROGRAM WO/W IVCON Radiology Routine Recurrent UTI Urinary frequency Urinary tract infection without hematuria, site unspecified Expected: 06/07/2024 (Approximate), Expires: 07/08/2025 [facility] Comment on above: Expected: 06/07/2024 (Approximate), Expires: 07/08/2025 Start: 06-07-2024 End: 09-06-2024 Urinalysis complete panel - Urine URINALYSIS, WITH MICROSCOPIC Lab Routine Recurrent UTI Urinary frequency Expected: 06/07/2024 (Approximate), Expires: 09/06/[address] [facility] Work Phone: Comment on above: Expected: 06/07/2024 (Approximate), Expires: 09/06/2024 Start: 11-28-2023 Behavioral Health Screening Behavioral Health Screening [facility] Start: 09-20-2023 [facility] Start: 07-29-2023 Covid-19 Vaccine () Covid-19 Vaccine () [facility] Start: 02-24-2023 Bacteria identified in Urine by Culture Urine Culture [facility] Start: 2020 Screening for malign ant neoplasm of cervix Cervical Cancer Screening [facility] Start: 2017 Hepatitis C screening Hepatitis C [facility] Start: 2017 HIV screening HIV Screening [facility] Start: 2015 Meningococcal B Vacc ine: Consider Based On Risk (1 of 2 - Patient Seeks Protection) Meningococcal B Vaccine: Consider Based On Risk (1 of 2 - Patient Seeks Protection) [facility] Start: 2013 Peds To Adult Transi tion Annual Assessment Peds To Adult Transition Annual Assessment [facility] Start: 2011 Peds To Adult Transi tion Initial Discussion Peds To Adult Transition Initial Discussion [facility] Immunizations Immunization Date Immunization Notes Care Provider Karen howell 09-15-2023 influenza virus vaccine, unspecified formulation Divya Steven [facility] 11-06-2021 SARS-CoV-2 (COVID-19 ) mRNA-1273 vaccine Divya Steven [facility] Comment on above: Result Comment: 2023: TPVALL 01-08-2021 COVID-19 mRNA-1273 (Moderna) [facility] 12-11-2020 COVID-19 mRNA-1273 (Moderna) [facility] 07-15-2020 tetanus toxoid, reduced diphtheria toxoid, and acellular pertussis vaccine, adsorbed Divya Or[facility] 07-29-2019 influenza virus vaccine, live, attenuated, for intranasal use Divya Orzech [facility] 10-18-2017 influenza virus vaccine, unspecified formulation Divya Orzech [facility] 10-18-2017 meningococcal ACWY vaccine, unspecified formulation Divya Orzech [facility] 09-18-2016 influenza virus vaccine, unspecified formulation Divya Orzech [facility] 09-20-2015 influenza virus vaccine, unspecified formulation Divya Orzech [facility] 07-28-2013 HPV, unspecified formulation Divya Orzech [facility] 07-28-2013 influenza virus vaccine, unspecified formulation Divya Orzech [facility] 11-29-2012 HPV, unspecified formulation Divya Orzech [facility] 10-14-2012 influenza virus vaccine, unspecified formulation Divya Orzech [facility] 11-25-2011 varicella virus vaccine Divya Orzech [facility] 08-14-2011 influenza virus vaccine, unspecified formulation Divya Orzech [facility] 11-25-2010 meningococcal ACWY vaccine, unspecified formulation [employer] 11-25-2010 tetanus toxoid, reduced diphtheria toxoid, and acellular pertussis vaccine, adsorbed Divya [employer] 09-19-2010 influenza virus vaccine, unspecified formulation Divya [employer] 08-14-2009 influenza virus vaccine, unspecified formulation [employer] 07-14-2005 diphtheria, tetanus toxoids and acellular pertussis vaccine Divya Orzech [facility] 07-14-2005 measles, mumps and rubella virus vaccine Divya Orzech [facility] 07-14-2005 poliovirus vaccine, unspecified formulation [employer] [facility] 09-18-2004 influenza virus vaccine, unspecified formulation [employer] [facility] 08-18-2004 influenza virus vaccine, unspecified formulation [employer] 08-22-2003 hepatitis B vaccine, adult dosage Divya [employer] [facility] 04-10-2001 diphtheria, tetanus toxoids and acellular pertussis vaccine Divya Orzech [facility] 04-10-2001 haemophilus influenz ae type b vaccine, HbOC conjugate Divya [employer] [facility] 04-10-2001 poliovirus vaccine, unspecified formulation Divya [employer] 02-06-2001 measles, mumps and rubella virus vaccine Divya Orzech [facility] 11-07-2000 varicella virus vaccine Divya Orzech [facility] 05-16-2000 hepatitis B vaccine, adult dosage Divya [employer] [facility] 04-18-2000 diphtheria, tetanus toxoids and acellular pertussis vaccine Divya Orzech [facility] 04-18-2000 haemophilus influenz ae type b vaccine, HbOC conjugate [employer] [facility] 04-18-2000 hepatitis B vaccine, adult dosage Divya [employer] 02-15-2000 diphtheria, tetanus toxoids and acellular pertussis vaccine Divya Orzech [facility] 02-15-2000 haemophilus influenz ae type b vaccine, HbOC conjugate [employer] [facility] 02-15-2000 poliovirus vaccine, unspecified formulation Divya [employer] [facility] 1999 diphtheria, tetanus toxoids and acellular pertussis vaccine Divya Orzech [facility] 1999 haemophilus influenz ae type b vaccine, HbOC conjugate Divya [employer] 1999 poliovirus vaccine, unspecified formulation Divya [employer] NEGATED: Highlighted row has not occurred!06-13-2019 meningococcal B vaccine, recombinant, OMV, adjuvanted Divya Steven [facility] Comment on above: Result Note: Patient is waiting on receiving this immunization Payers Date Payer Category Payer Unknown MMO MMO [employer] PPO [id number] 2023-Present [phone] [address] [place] [address] PPO [id number] 2023 Self-pay [id number] 2019 Unknown [id number] 1999 Unknown [id number] Unknown [id number] Unknown [id number] Social History Date Type Detail Facility Tobacco smoking status NHIS Unknown if ever smoked [facility] Start: 1999 Sex Assigned At Female F [facility] Start: 06-07-2024 Sex [facility]igned [facility] F [facility] Start: 04-17-2024 Tobacco smoking status Never smoked tobacco (finding) [facility] Tobacco smoking status Never [facility] Tobacco smoking status NHIS Tobacco smoking consumption unknown [facility] Start: 06-07-2024 History of Social function [facility] Start: 1999 Sex Assigned At Not on file [facility] Goals Date Patient Goal Desired Activity /State Functional Status Date Assessment Result Facility 04-17-2024 Functional Status N/A [facility] Clinical Notes 02-24-2023 to 06-11-2024 Ly Steel MD - 06/11/2024 9:25 PM EDTPatient Marlyn Escoto - 06/07/2024 3:40 PM EDT Note Date & Type Note Facility 06-11-2024 Note HNO ID: [id number] Author: LY STEEL MD Service: ? Author Type: Physician Type: Progress Notes Filed: 06/11/2024 21:29 Note Text: Cysto 07-18-24 Recurrent UTIs with frequency and feeling of pressure. UA = culture = CTU 06-27-24 = [facility] 06-11-2024 History of Presen t illness Narrative Cysto 07-18-24 Recurrent UTIs with frequency and feeling of pressure. UA = culture = CTU 06-27-24 = documented in this encounter [facility] 06-07-2024 Instructions Marlyn Rome - 06/07/2024 4:14 PM EDT UA + culture + CTU Schedule cystoscopy documented in this encounter [facility] 06-07-2024 History of Presen t illness Narrative Shandra Bridges [address] [place] [address] [place] [address] is a 23 year old female with complaints of: Recurrent UTIs with associated frequency and feeling of pressure. HISTORY OF PRESENT ILLNESS: Location: bladder, urethra Pain Character: burning Severity Scale: moderate Duration: recurrent over several months No past medical history on file. No past surgical history on file. No family history on file. MEDICATIONS: No current outpatient medications on file. No current facility-administered medications for this visit. ALLERGY: ALLERGIES Not on File = REVIEW OF SYSTEMS = GENERAL: No fever, no fatigue and no weight loss. HEAD & NECK: No headache, no blurred vision and no hearing loss. CARDIOVASCULAR: No chest pain, no palpitations and no leg edema. RESPIRATORY: No cough, wheezing and no shortness of breath. : As indicated in HPI. GI: No epigastric discomfort, no blood in stool and no changes in bowel habits. MUSCLOSKELETAL: No neck pain, no back anin and no joint pain. SKIN: No varicose veins, no rash and no abnormal itching. NEUROLOGICAL: No numbness, no seizures and no tremor. BLOOD: No ekimosis, no hematomas or no bleeding from the gums. PHYSICAL EXAM: GENERAL: Alert, oriented and in no distress. ABDOMEN: Soft, non tender with no masses or organomegaly. No CVA tenderness. HERNIA: Negative EXTREMITIES: No leg edema, No joint swelling GENITALIA: Deferred IMPRESSION (Diagnostic Possibilities) / PLAN (Management Options): Recurrent UTIs + Frequency: Explained the possible causes of her recurrent UTI and the course of treatment we will take: Cystoscopy to discover why she is having the discomfort, especially since one of her cultures came back negative. P= UA + culture + CTU Schedule cystoscopy Medical Decision Making: Data: Unique test(s) ordered: 3+ Risk: Low: Low risk from testing/treatment Medical Decision Making Level: 3 - Low By signing my name below, Marlyn Bonilla, attest that this documentation has been prepared under the direction and in the presence of Dr. Steel. Jeremie Dueñas Provider Attestation: Ly Bonilla M.D., personally performed the services described in this documentation. All medical record entries made by the scribe were at my direction and in my presence. I have reviewed the chart and discharge instructions (if applicable) and agree that the record reflects my personal performance and is accurate and complete. Ly Steel M.D. documented in this encounter [facility] 06-07-2024 Note HNO ID: [id number] Author: ?, ?, ? Service: ? Author Type: ? Type: Progress Notes Filed: 06/07/2024 16:18 Note Text: Shandra Bridges [address] [place] [address] [place] [address] is a 23 year old female with complaints of: Recurrent UTIs with associated frequency and feeling of pressure. HISTORY OF PRESENT ILLNESS: Location: bladder, urethra Pain Character: burning Severity Scale: moderate Duration: recurrent over several months No past medical history on file. No past surgical history on file. No family history on file. MEDICATIONS: No current outpatient medications on file. No current facility-administered medications for this visit. ALLERGY: ALLERGIES Not on File = REVIEW OF SYSTEMS = GENERAL: No fever, no fatigue and no weight loss. HEAD AND NECK: No headache, no blurred vision and no hearing loss. CARDIOVASCULAR: No chest pain, no palpitations and no leg edema. RESPIRATORY: No cough, wheezing and no shortness of breath. : As indicated in HPI. GI: No epigastric discomfort, no blood in stool and no changes in bowel habits. MUSCLOSKELETAL: No neck pain, no back anin and no joint pain. SKIN: No varicose veins, no rash and no abnormal itching. NEUROLOGICAL: No numbness, no seizures and no tremor. BLOOD: No ekimosis, no hematomas or no bleeding from the gums. PHYSICAL EXAM: GENERAL: Alert, oriented and in no distress. ABDOMEN: Soft, non tender with no masses or organomegaly. No CVA tenderness. HERNIA: Negative EXTREMITIES: No leg edema, No joint swelling GENITALIA: Deferred IMPRESSION (Diagnostic Possibilities) / PLAN (Management Options): Recurrent UTIs + Frequency: Explained the possible causes of her recurrent UTI and the course of treatment we will take: Cystoscopy to discover why she is having the discomfort, especially since one of her cultures came back negative. P= UA + culture + CTU Schedule cystoscopy Medical Decision Making: Data: Unique test(s) ordered: 3+ Risk: Low: Low risk from testing/treatment Medical Decision Making Level: 3 - Low By signing my name below, IMarlyn, attest that this documentation has been prepared under the direction and in the presence of Dr. Steel. Marlyn Rome Scribe Provider Attestation: Ly Bonilla M.D., personally performed the services described in this documentation. All medical record entries made by the scribe were at my direction and in my presence. I have reviewed the chart and discharge instructions (if applicable) and agree that the record reflects my personal performance and is accurate and complete. Ly Steel M.D. [facility] 04-17-2024 Note Chief Complaint Referral from Joceline Richmond CNP or urinary frequency HPI Staff Evaluation requested by Joceline Richmond CNP due to frequency & Urgency. Pt is a new pt. Never before seen in our office. (Verified on DA) Last CMP 09/20/23 *BUN 10 Crea 0.67 eGFR >60 UA 02/07/24 TRACE leuks NEG blood & Nitrate MicroUA 02/07/24 0-2 RBC NEG UA & C&S 02/22/24 GAYATHRI 02/22/24 *Nonobstructing Rt Kidney Stone Dysuria: denies Incomplete bladder emptying: yes Hematuria: denies Frequency: yes Urgency: yes Nocturia: 2-3x a night Stream: steady Leaking: denies Post void dripping: denies Wearing pads/ Depends: denies Urge incontinence: denies Stress incontinence: denies Incontinence without Sensory Awareness: denies Abdominal pain: denies Flank pain: denies Sexual complaints: _ History of Present Illness I have reviewed and verified the staff HPI to be accurate for this encounter. Portions of this record may have been created with voice recognition artificial intelligence software, specifically Reclam[employer], Chloe + Isabel and or Pretty in my Pocket (PRIMP). Substitutions may have occurred due to the inherent limitations of voice recognition and artificial intelligence software. Review of Systems PHQ Score Initial Depression Screen Score: 0 SCORE Physical Exam Vitals & Measurements T: 36.7 ?C(Temporal Artery) HR: 76(Peripheral) RR: 16 BP: 134/82 HT: 69 in HT: 175 cm WT: 74 kg WT: 162.8 lb BMI: 24.16 General: Well developed, well nourished, in no acute distress. Genitourinary: Flank Pain: none. Bladder: nonpalpable. Assessment/Plan Review of external notes, labs, results, imaging. 1. Urinary frequency (R35.0: Frequency of micturition) Patient notes that she had rapid onset of urinary frequency q 2-3 hrs, urgency, bladder pressure and spasms sometime in November 2023. She is also experienced nocturia 2-3 times per night. She was evaluated in urgent care at that time and treated with Macrobid for UTI, although patient reports culture was negative. Symptoms have continued since then. Treated 02/02/2024 with cefdinir x 10 days UCX 02/07/2024 negative UCX 02/22/2024 negative Treated 03/29/2024 with Bactrim DS x 10 days UA today with small leukocytes, no blood. Patient notes that she possibly has very slight symptom relief while on antibiotics, nothing significant. Has also used Azo/Pyridium which does give her improvement of symptoms, but is short lasting. She notes her only time she has true relief is when she is actively urinating. She drinks about five 16 ounce bottles of water daily, a couple coffee daily, possibly 1 diet pop every other day. We did discuss bladder irritants, although I do not believe that this is her primary issue at this time. She denies constipation, soft BM daily. Denies pain w/ intercourse. Patient has no history of ever passing a stone. Did have renal ultrasound ordered by PCP which showed nonobstructing right kidney stones. Given her abrupt onset of symptoms, would like to rule out ureteral stone with KUB, see #2. She notes that she has a strong urinary stream, PVR today 56 mL. We did discuss possibility of urethral stricture given her symptoms. However, it is not consistent with abrupt onset. If cannot prove she has a ureteral stone contributing to sxs, will schedule for cysto/poss UD. The procedure risks, benefits, details, and treatment alternatives have been discussed with the patient. These include bleeding, infection, recurrent scar in over 50%, need for repeat dilation or other procedures, no symptom relief with dilation, among others. Will order Local anesthesia. -KUB, poss IVP. -Cysto/UD w/ GPC if no ureteral stone. Ordered: oxybutynin, 5 mg = 1 tab(s), Oral, TID, PRN for urinary discomfort, X 30 day(s), # 30 tab(s), Refills(s) 1, Pharmacy: [id number], 175, cm, 04/17/24 13:52:00 EDT, Height/Length Dosing, 74, kg, 04/17/24 13:52:00 EDT, Weight Dosing XR Abdomen 1 View 2. Kidney stone (N20.0: Calculus of kidney) GAYATHRI 02/22/2024-right kidney contains a few nonobstructing 3 mm stones. Patient denies ever having stone episode in the past. Denies any flank pain at today's visit. However, given rapid onset of symptoms in November, I believe that it is not unreasonable to rule out distal ureteral stone. [place] [facility] [place] If unable to visualize distal ureters, will order IVP to rule out ureteral stone. Ordered: [id number] Measure Post Void residual urine and/or bladder capacity by US- non-imaging Urnls Dip Stick Auto w/o Microscopy POC 85802 3. 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 We discussed use of anticholinergic medications for bladder spasms. We discussed typical side effects. Patient to stop medication and report anything intolerable to the office. Will Rx oxybutynin 5 mg as needed 3 times daily. Rx sent t (more content not included)... [facility] Comment on above: Result Comment: Elec tronically Signed By: SATYA Steven APRN, [place] [facility]\Date and Time Signed: 04/17/24 15:16 EDT 04-17-2024 Hospital Discharg e instructions Patient Education 04/17/2024 15:16:28 Urinary Frequency, Adult Urinary Frequency, Adult Urinary frequency means urinating more often than usual. You may urinate every 1 2 hours even though you drink a normal amount of fluid and do not have a bladder infection or condition. Although you urinate more often than normal, the total amount of urine produced in a day is normal. With urinary frequency, you may have an urgent need to urinate often. The stress and anxiety of needing to find a bathroom quickly can make this urge worse. This condition may go away on its own, or you may need treatment at home. Home treatment may include bladder training, exercises, taking medicines, or making changes to your diet. Follow these instructions at home: Bladder health Your health care provider will tell you what to do to improve bladder health. You may be told to: Keep a bladder diary. Keep track of: ?What you eat and drink. ?How often you urinate. ?How much you urinate. Follow a bladder training program. This may include: ?Learning to delay going to the bathroom. ?Double urinating, also called voiding. This helps if you are not completely emptying your bladder. ?Scheduled voiding. Do Kegel exercises. Kegel exercises strengthen the muscles that help control urination, which may help the condition. Eating and drinking Follow instructions from your health care provider about eating or drinking restrictions. You may be told to: Avoid caffeine. Drink fewer fluids, especially alcohol. Avoid drinking in the evening. Avoid foods or drinks that may irritate the bladder. These include coffee, tea, soda, artificial sweeteners, citrus, tomato-based foods, and chocolate. Eat foods that help prevent or treat constipation. Constipation can make urinary frequency worse. You may need to take these actions to prevent or treat constipation: ?Drink enough fluid to keep your urine pale yellow. ?Take bjel-xze-cgyqqmu or prescription medicines. ?Eat foods that are high in fiber, such as beans, whole grains, and fresh fruits and vegetables. ?Limit foods that are high in fat and processed sugars, such as fried or sweet foods. General instructions Take aegz-pvt-cqyoket and prescription medicines only as told by your health care provider. Keep all follow-up visits. This is important. Contact a health care provider if: You start urinating more often. You feel pain or irritation when you urinate. You notice blood in your urine. Your urine looks cloudy. You develop a fever. You begin vomiting. Get help right away if: You are unable to urinate. Summary Urinary frequency means urinating more often than usual. With urinary frequency, you may urinate every 1 2 hours even though you drink a normal amount of fluid and do not have a bladder infection or other bladder condition. Your health care provider may recommend that you keep a bladder diary, follow a bladder training program, or make dietary changes. If told by your health care provider, do Kegel exercises to strengthen the muscles that help control urination. Take bkmd-eph-hpulmpm and prescription medicines only as told by your health care provider. Contact a health care provider if your symptoms do not improve or get worse. This information is not intended to replace advice given to you by your health care provider. Make sure you discuss any questions you have with your health care provider. Document Revised: 06/19/2021 Document Reviewed: 06/19/2021 [employer] Patient Education 2022 [employer]. 04/17/2024 15:16:24 Kidney Stones, Bagn-lt-Nqju Kidney Stones Kidney stones are rock-like masses that form inside of the kidneys. Kidneys are organs that make pee (urine). A kidney stone may move into other parts of the urinary tract, including: The tubes that connect the kidneys to the bladder (ureters). The bladder. The tube that carries urine out of the body (urethra). Kidney stones can cause very bad pain and can block the flow of pee. The stone usually leaves your body (passes) through your pee. You may need to have a doctor take out the stone. What are the causes? Kidney stones may be caused by: A condition in which certain glands make too much parathyroid hormone (primary hyperparathyroidism). A buildup of a type of crystals in the bladder made of a chemical called uric acid. The body makes uric acid when you eat certain foods. Narrowing (stricture) of one or both of the ureters. A kidney blockage that you were born with. Past surgery on the kidney or the ureters, such as gastric bypass surgery. What increases the risk? You are more likely to develop this condition if: You have had a kidney stone in the past. You have a family history of kidney stones. You do not drink enough water. You eat a diet that is high in protein, salt (sodium), or sugar. You are overweight or very overweight (obese). What are the signs or symptoms? Symptoms of a kidney stone may include: Pain in the side of the belly, right below the ribs (flank pain). Pain usually spreads (radiates) to the groin. Needing to pee often or right away (urgently). Pain when going pee (urinating). Blood in your pee (hematuria). Feeling like you may vomit (nauseous). Vomiting. Fever and chills. How is this treated? Treatment depends on the size, location, and makeup of the kidney stones. The stones will often pass out of the body through peeing. You may need to: Drink more fluid to help pass the stone. In some cases, you may be given fluids through an IV tube put into one of your veins at the hospital. Take medicine for pain. Make changes in your diet to help keep kidney stones from coming back. Sometimes, medical procedures are needed to remove a kidney stone. This may involve: A procedure to break up kidney stones using a beam of light (laser) or shock waves. Surgery to remove the kidney stones. Follow these instructions at home: Medicines Take [id number] and prescription medicines only as told by your doctor. Ask your doctor if the medicine prescribed to you requires you to avoid driving or using heavy machinery. Eating and drinking Drink enough fluid to keep your pee pale yellow. You may be told to drink at least 8 10 glasses of water each day. This will help you pass the stone. If told by your doctor, change your diet. This may include: ?Limiting how much salt you eat. ?Eating more fruits and vegetables. ?Limiting how much meat, poultry, fish, and eggs you eat. Follow instructions from your doctor about eating or drinking restrictions. General instructions Collect pee samples as told by your doctor. You may need to collect a pee sample: ?24 hours after a stone comes out. ?8 12 weeks after a stone comes out, and every 6 12 months after that. Strain your pee every time you pee (urinate), for as long as told. Use the strainer that your doctor recommends. Do not throw out the stone. Keep it so that it can be tested by your doctor. Keep all follow-up visits as told by your doctor. This is important. You may need follow-up tests. How is this prevented? To prevent another kidney stone: Drink enough fluid to keep your pee pale yellow. This is the best way to prevent kidney stones. Eat healthy foods. Avoid certain foods as told by your doctor. You may be told to eat less protein. Stay at a healthy weight. Where to find more information National Kidney Foundation (NKF): www.kidney.org Urology Care Foundation (UCF): www.urologyhealth.org Contact a doctor if: You have pain that gets worse or does not get better with medicine. Get help right away if: You have a fever or chills. You get very bad pain. You get new pain in your belly (abdomen). You pass out (faint). You cannot pee. Summary Kidney stones are rock-like masses that form inside of the kidneys. Kidney stones can cause very bad pain and can block the flow of pee. The stones will often pass out of the body through peeing. Drink enough fluid to keep your pee pale yellow. This information is not intended to replace advice given to you by your health care provider. Make sure you discuss any questions you have with your health care provider. Document Revised: 07/19/2022 Document Reviewed: 07/19/2022 [employer] Patient Education 2022 [employer]. [facility] 02-24-2023 Evaluation note Encounter Date Diagnosis Assessment [...] understanding and is agreeable to treatment plan [employer] Other Evaluation + Plan note No data available for this section [facility] evaluation noteNo assessment information available [facility] Work Phone: Evaluation note* Diagnosis Recurrent UTI- Primary Urinary tract infection, site not specified Urinary frequency Urinary tract infection without hematuria, site unspecified documented in this encounter [facility] general Narrative - Reported* Type Description Date Medical History Depression [employer] Other Progress note No data available for this section [facility] [employer] Chief Complaint and Reason for Visit Chief Complaint New Hire Physical Chief Complaint Dysuria Chief Complaint pillars Assessments No Assessments Information Available Advance Directives No Advanced Directives Records Found Advance Directive Response Recorded Date/ Time Advance Directives No June 07 12:21pm Summary Purpose Family History No Family History Records Found No data available for this section No Family History Records FoundNo Family History Records Found Reason for Referral Specialty Diagnoses / Procedures Referred By Milad t Referred To Contact CT IMAGING Diagnoses Recurrent UTI Urinary frequency Urinary tract infection without hematuria, site unspecified Procedures CT UROGRAM WO/W IVCON CT ABD & PELVIS W/WO CONTRST 1+ BODY Ly Garcia MD [address] [place] [address] [place] [address] Referral ID Status Reason Start Date Expiration Date Visits Requested Visits Authorized [id number] Authorized Auto-Generat ed Referral 06/07/2024 07/07/2025 1 1 Additional Source Comments REASON FOR VISIT (unrecogniz ed section and content) Reason Comments Consult Care Teams (unrecognized sec tion and content) Team Status: Active Member Role Status Dates NON STAFF Primary Care Provider Active Team Status: Inactive Member Role Status Dates NON STAFF Primary Care Provider Active Maritza Singh APRN Attending Provider Active Team Status: Inactive Member Role Status Dates NON STAFF Primary Care Provider Active DO BETI Perkins Attending Provider Active Goals (unrecognized section and content) Goals may be documented in a n alternate section INFORMATION SOURCE (unrecogn ized section and content) DATE CREATED AUTHOR 09/24/2023 [facility] DATE CREATED AUTHOR AUTHOR'S ORGANIZ ATION 04/19/2024 [facility] DATE CREATED AUTHOR AUTHOR'S ORGANIZ ATION 06/19/2024 [facility] Source Comments (unrecognize d section and content) In the event this informatio n is protected by the Federal Confidentiality of Alcohol and Drug Abuse Patient Records regulations: The Federal rules restrict any use of the information to criminally investigate or prosecute any alcohol or drug abuse patient.[facility] the event this information is protected by the Federal Confidentiality of Alcohol and Drug Abuse Patient Records regulations: The Federal rules restrict any use of the information to criminally investigate or prosecute any alcohol or drug abuse patient.[facility] FOR RECORDS PERTAINING TO PATIENTS WHO ARE [...] BE BASED ON THE PRIMARY CLINICAL RECORDS. [facility]. provides no warranty or guarantee of the accuracy or completeness of information in this document.
[2024-06-27 11:21] LABS: Bilirubin Urine NEGATIVE (NEGATIVE); Blood Urine NEGATIVE (NEGATIVE); Clarity Urine CLEAR (CLEAR); Color Urine LT. YELLOW (YELLOW); Glucose Urine UA NEGATIVE (NEGATIVE); Ketones Urine NEGATIVE (NEGATIVE); Leukocyte Esterase Urine NEGATIVE (NEGATIVE); Nitrite Urine NEGATIVE (NEGATIVE); Protein Urine NEGATIVE (NEG/TRACE); Specific Gravity Urine 1.015 (1.005-1.025); Urobilinogen Urine 0.2 EU/dL (0.2-1.0); pH Urine 6.5 (5.0-9.0)
[2024-06-27 12:08] LABS: Squamous Epithelial Cell Urine FEW #/LPF (NONE/RARE)
[2024-06-27 12:09] LABS: Mucus Urine TRACE (NONE SEEN); WBC Urine 0-2 #/HPF (NONE SEEN)
[2024-06-27 12:10] LABS: Bacteria Urine TRACE #/HPF (NONE SEEN); Cast Seen? NONE SEEN #/LPF (NONE SEEN); Crystals Seen? None Seen #/HPF (None Seen); RBC Urine NONE SEEN #/HPF (0-2)
== END 2024-06-27 09:12 | disposition home or self-care (01) ==
LOC: LAB 09:13
PROVIDERS: PCP Nurse Practitioner Family
DX: N39.0 Urinary tract infection, site not specified (principal); R35.0 Frequency of micturition
CPT/HCPCS: 81001; 87086

== ENCOUNTER 2025-04-30 12:00 | Outpatient (OUT) | payer OTHER, SELFPAY ==
--- OUTSIDE RECORDS SUMMARY | 2024-02-23 04:29 | XMS_ITS ---
Author Organization [facility] in [place] Address [address] [place] [address] Care Team Providers Care Cna Pct Name Role Phone Joceline Baltazar Primary Care Provider JOCELINE BALTAZAR Unavailable [phone] Reason For Referral Diagnosis 1 Frequency of micturi tion (R35.0) Referral Organization [facility] Referring Provider First Name JOCELINE Referring Provider Last Name BASILIO Referring Provider Speciality Family Med icine Referred Provider Eduar Hunter Referred Provider Specialty Urology Referral Priority Routine REASON FOR VISIT results- wants referral Encounters Encounter Location Date Provider Diagnosis [facility] [address] [place] [address] 02/23/2024 JOCELINE BALTAZAR Frequency of micturition R35.0 and Urgency of urination R39.15 Assessments Encounter Date Diagnosis (ICD Code) Assessment Notes Treatment Notes Treatment Clinical Notes Section Notes 02/23/2024 Frequency of micturition (ICD-10 - R35.0) 02/23/2024 Urgency of urination (ICD-10 - R39.15) Plan Of Treatment Referrals Referral Date Details 02/23/2024 02/23/2024Eduar Progress Notes * Shandra CLEVELAND EDOB:[birth year] (23 yo F)Acc No.[id number]:02/23/2024 Patient: Grant Shandra morlaes :2000 A ge:23 Y S ex:Female Address:[facility] [address] [place] [address] Subjective: * Chief Complaints: * R esults- wants referral * Medical History: * Surgical History: * Hospitalization/Major Diagno stic Procedure: * Medications: Objective: Assessment: * Assessment: 1. F requency of micturition - R35.0 (Primary) 2 . U rgency of urination - R39.15 Plan: * Treatment: * Procedure Codes: * true * Date: Generated for Rufina bell/Roseline/eTransmitting on: 0 04/30/2025 12:01 PM EDT Consultation Request Notes Referral Date Referring Provider Referred Provider Not es 02/23/2024 JOCELINE BALTAZAR Patrick
--- OUTSIDE RECORDS SUMMARY | 2024-03-07 05:06 | XMS_ITS ---
Author Organization [facility] [place] Address [address] [place] [address] Care Team Providers Care Horse Racing Manager Name Role Phone Joceline Baltazar Primary Care Provider JOCELINE BALTAZAR Unavailable [phone] REASON FOR VISIT Follow Up Anxiety/Depression Medication- lmtcb Encounters Encounter Location Date Provider Diagnosis [facility] [address] [facility] [place] [address] 03/07/2024 JOCELINE BALTAZAR Plan Of Treatment No Information Progress Notes * Shandra CLEVELAND EDOB:[birth year] (23 yo F)Acc No.[id number]:03/07/2024 Patient: Grant moralesShandra :2000 A ge:23 Y S ex:Female Address:[facility] [place] [address] [place] [address] * true * Date: Generated for Printi ray/Fachelig/eTransmitting on: 0 04/30/2025 12:01 PM EDT
--- OUTSIDE RECORDS SUMMARY | 2025-04-30 12:01 | XMS_ITS | Patient Health Record ---
Author Organization The [facility] [place] Address [address] [place] [address] Care Team Providers Care Senior Oracle Pl Sql Developer Name Role Phone Delaney Joceline Primary Care Provider Allergies No Known Allergies Results Component Value Reference Range Notes Urine Culture, Routine Reviewed date:06/29/2024 11:22:39 AM Interpretation: Performing Lab: Notes/Report: [facility] , Urine Culture, Routine See Below For Report Urine Culture, Routine Urine Culture, Routine No growth Urine Culture, Routine Urine Culture, Routine Performed at: [facility] Urine Culture, Routine Urine Culture, Routine [address] [place], [place] [id number] Urine Culture, Routine Urine Culture, Routine Customer Support Advisor: Juanpablo Riley PhD, Phone: [phone] Urine Culture, Routine Performing Lab: see note LC - [facility] LB SEE REPORT - [employer] Id information not found for OBX-specific associate producer legend UA RANDOM W or MICROSCOPIC Reviewed date:06/28/2024 01:53:47 PM Interpretation: Performing Lab: Notes/Report: [facility] , Color Urine LT. YELLOW YELLOW Clarity Urine CLEAR CLEAR Specific [place] Urine 1.015 1.005-1.025 pH Urine 6.5 5.0-9.0 Protein Urine NEGATIVE NEG/TRACE mg/dL Glucose Urine UA NEGATIVE NEGATIVE mg/dL Bilirubin Urine NEGATIVE NEGATIVE Ketones Urine NEGATIVE NEGATIVE mg/dL Blood Urine NEGATIVE NEGATIVE Nitrite Urine NEGATIVE NEGATIVE Urobilinogen Urine 0.2 0.2-1.0 EU/dL Leukocyte Esterase Urine NEGATIVE NEGATIVE WBC Urine 0-2 NONE SEEN #/HPF RBC Urine NONE SEEN 0-2 #/HPF Bacteria Urine TRACE NONE SEEN #/HPF Mucus Urine TRACE NONE SEEN Squamous Epithelial Cell Urine FEW NONE/RARE #/LPF Crystals Seen? None Seen None Seen #/HPF Cast Seen? NONE SEEN NONE SEEN #/LPF Performing Lab: see note ML - [facility] Reason For Referral No Information Medications Medication SIG (Take, Route, Frequency, Duration) Notes Start Date End Date Status Cefdinir 300 MG 2 capsules Orally Daily for 10 days 02/02/2024 Active Lexapro 10 MG 1 tablet Orally Once a day for 30 days take 1/2 tablet po for first week than increase dose to 1 tablet po daily 02/02/2024 Active Vistaril 25 MG 1 capsule Orally BID as needed for 30 days 03/29/2023 Active traZODone HCl 50 mg TAKE 1 TABLET BY MOUTH AT BEDTIME NEEDED for 30 Active Kyleena 19.5 MG as directed Intrauterine 06/11/2022 Active Social History Tobacco Use: Social History Observation Description Date Details (start date - stop date) Never Smoker NA - NA Tobacco Use/Smoking Question Answer Notes Patient is a nonsmoker Alcohol Screen (Audit-C) Question Answer Notes Did you have a drink contain ing alcohol in the past year? Yes How often did you have 6 or more drinks on one occasion in the past year? Never (0 point) How many drinks did you have on a typical day when you were drinking in the past year? 1 or 2 drinks (0 point) How often did you have a dri nk containing alcohol in the past year? Monthly (2 points) Points 2 Interpretation Negative Problems Problem Type SNOMED Code ICD Code Onset Dates Problem Status W/U Status Risk Notes Problem 220402077 Insomnia, unspecified (G47.00) Active confirmed Problem 795358311 Frequency of micturition (R35.0) Active confirmed Problem 62744935 Urgency of urination (R39.15) Active confirmed Problem Anxiety (30403252) Anxiety (F41.9) Active confirmed Problem Nephrolithiasis (N20.0) Active confirmed Plan Of Treatment Pending Test Test Name Order Date UA (URINALYSIS, COMPLETE) 02/02/2024 UA (URINALYSIS, COMPLETE) 02/20/2024 US Renals and Bladder 02/20/2024 Urinalysis Microscopic 02/20/2024 UA DIP NONAUTO WO MICRO (04658) - IN OFF ICE 03/29/2023 URINE CULTURE 02/02/2024 CULTURE URINE 02/20/2024 Insurance Providers Payer Name Payer Address Payer Phone Subscriber Number Group Number Insured Name Patient Relationship to Insured Coverage Start Date Coverage End Date [facility] [address] [place], [place] [id number] [phone] [id number] Shandra Bridges Self - patient is the insured Medical (General) History Surgical History Surgery Date(Month/Year) denies Hospitalization History Reason Date(Month/Year) denies
--- OUTSIDE RECORDS SUMMARY | 2025-04-30 12:01 | XMS_ITS | Encounter Summary ---
Author Organization [facility] Address [address] [place] [id number] Care Team Providers Care Revenue Cycle Administrator Name Role Phone Aashish Chand MD Primary Care Provider [phone] Encounter Details Date Type Department Care Team (Late Contact Info) Description 04/26/2023 Abstract [facility] [address] [place] [phone] Sheila Hernandez, DO [address] [place] [phone] Social History Tobacco Use Types Packs/Day Years Used Date Smoking Tobacco: Never Tobacco Cessation:Counseling Given: Not Answered Alcohol Use Standard Drinks/Week Comments Yes 4 (1 standard drink = 0.6 oz pure alcohol) Caffeine intake: 1-2 cups per day of coffee Comments Unknown Sex and Gender Information Value Date Recorded Sex Assigned at Not on file Legal Sex Female 9:35 PM EDT Gender Identity Not on file Sexual Orientation Not on file documented as of this encounter Plan of Treatment Upcoming Encounters Date Type Department Care Team (Late st Contact Info) Description 06/06/2025 10:15 AM EDT Office Visit [facility] [address] [place] [phone] Sheila Hernandez, DO [address] [place] [id number] documented as of this encounter Visit Diagnoses Not on filedocumented in this encounter Care Teams Revenue Cycle Administrator Relationship Specialty Start Date End Date Aashish Chand MD PCP - General Family Medicine 05/05/23 documented as of this encounter
--- OUTSIDE RECORDS SUMMARY | 2025-04-30 12:01 | XMS_ITS | Encounter Summary ---
Author Organization [facility] Address [address] [place] [address] Care Team Providers Care Birdcage Assembler Name Role Phone Aashish Chand MD Primary Care Provider [phone] Encounter Details Date Type Department Care Team (Late Contact Info) Description 05/03/2023 Abstract [facility] [address] [place] [phone] Sheila Hernandez, DO [address] [place] [address] Social History Tobacco Use Types Packs/Day Years [...] 06/06/2025 10:15 AM EDT Office Visit [facility] [address] [place] [phone] Sheila Hernandez, DO [address] [place] [address] documented as of this encounter Visit Diagnoses Not on filedocumented in this encounter Care Teams Birdcage Assembler Relationship Specialty Start Date End Date Aashish Chand MD PCP - General Family Medicine 05/05/23 documented as of this encounter
--- OUTSIDE RECORDS SUMMARY | 2025-04-30 12:01 | XMS_ITS | Encounter Summary ---
Author Organization [facility] Address [address] [place] [address] Care Team Providers Care Rail Director Name Role Phone Unavailable Primary Care Provider Unavailabl e Source Comments In the event this information is protected by the Federal Confidentiality of Alcohol and Drug AbusePatient Records regulations: The Federal rules restrict any use of the information to criminally investigate or prosecute any alcohol or drug abuse patient.[facility] Encounter Details Date Type Department Care Team (Late st Contact Info) Description 04/26/2025 Get Medical Advice Urology [address] [place], [place] [phone] Merlin Steel MD [address] [place] [address] Follow up appointment Social History Tobacco Use Types Packs/Day Years Used Date Smoking Tobacco: Never Assessed Area Deprivation Index Answer Date Neal rded National Score (1-100), lower number is lower ri sk 87 06/07/2024 State Score (1-10), lower number is lower risk 8 06/07/2024 Data from: https://www.neighborhoodatlas.medicine.[facility].edu/. Last address used for calculation [place] [address] Verdin 06/07/2024 Comments No Sex and Gender Information Value Date Recorded Sex Assigned at Not on file Legal Sex Female 11:53 AM EDT Gender Identity Not on file Sexual Orientation Not on file documented as of this encounter Miscellaneous Notes * Telephone Encounter - Nora Hdz LPN - 04/29/2025 11:30 AM EDT Orders for UA/C&S printed and faxed to number provided. Confirmation of fax received. * Telephone Encounter - Merlin Steel MD - 04/28/2025 11:42 AM EDT UA and culture ordered please notify patient proceed accordingly She wants it faxed to [facility] ( I would also like to give it done at my local hospital if the new order can be faxed over to the [facility] or emailed to me to bring to them. Thank you my phone number is [phone] ) documented in this encounter Plan of Treatment Upcoming Encounters Date Type Department Care Team (Late st Contact Info) Description 05/03/2025 3:00 PM EDT Office Visit Urology [address] [place] [address] Merlin Steel MD [address] [place] [address] UTI FOLLOW UP Scheduled Orders Name Type Priority Associated Diagnoses Orde r Schedule URINALYSIS, WITH MICROSCOPIC Lab Routine Recurrent UTI Expected: 04/28/2025 (Approximate), Expires: 07/28/2025 BACTERIAL CULTURE, URINE Microbiology Routine Recurrent UTI Expected: 04/28/2025 (Approximate), Expires: 07/28/2025 documented as of this encounter Visit Diagnoses Diagnosis Recurrent UTI- Primary Urinary tract infection, site not specified documented in this encounter
--- OUTSIDE RECORDS SUMMARY | 2025-04-30 12:01 | XMS_ITS | Clinical Summary ---
Author Organization [facility] Address [address] [place] [address] Care Team Providers Care National Van Truck Driver Name Role Phone Aashish Chand MD Primary Care Provider [phone] Allergies Active Allergy Reactions Criticality Noted Date Comments Sulfamethoxazole-Trimethoprim GI intolerance Medium Medications Levonorgestrel (Kyleena) 19.5 MG intrauterine device Kyleena Active busPIRone (Buspar) 10 MG tablet Take 10 mg by mouth in the morning and 10 mg in the evening and 10 mg before bedtime. 5 Active escitalopram (Lexapro) 10 MG tablet Take 10 mg by mouth Daily 5 Active methylPREDNISolo ne (Medrol Dospak) 4 MG tabletsIndicatio ns:Non-recurrent acute serous otitis media of both ears Follow schedule on package instructions 21 tablet 5 Active Encounters Date Type Department Care Team Description 02/27/2025 5:05 PM EDT Office Visit [facility] [address] [place] [phone] Jil Ellis, ROXANA Acute rhinosinusitis (Primary Dx); Non-recurrent acute serous otitis media of both ears; Acute swimmer's ear of both sides 02/27/2025 Travel from Last 3 Months Family History Medical History Relation Name Comments No Known Problems Sister Relation Name Status Comments Sister 2 sisters Social History Tobacco Use Types Packs/Day Years Used Date Smoking Tobacco: Never Smokeless Tobacco: Never Tobacco Cessation:Counseling Given: Not Answered Alcohol Use Standard Drinks/Week Comments Yes 4 (1 standard drink = 0.6 oz pure alcohol) Caffeine intake: 1-2 cups per day of coffee Comments Unknown Sex and Gender Information Value Date Recorded Sex Assigned at Not on file Legal Sex Female 9:35 PM EDT Gender Identity Not on file Sexual Orientation Not on file Last Filed Vital Signs Vital Sign [place] Time Taken Comments Blood Pressure 118/76 02/27/2025 5:03 PM EDT Pulse 78 02/27/2025 5:03 PM EDT Temperature 36.8 C (98.2 F) 02/27/2025 5:03 PM EDT Respiratory Rate - - Oxygen Saturation 99% 02/27/2025 5:03 PM EDT Inhaled Oxygen Concentration - - Weight 80.7 kg (178 lb) 02/27/2025 5:03 PM EDT Height 175.3 cm (5' 9 ) 05/05/2023 1:09 PM EDT Body Mass Index 26.29 05/05/2023 1:09 PM EDT Plan of Treatment Upcoming Encounters Date Type Department Care Team (Late st Contact Info) Description 06/06/2025 10:15 AM EDT Office Visit [facility] [address] [facility] [address] [place] [phone] Sheila Hernandez, DO [address] [facility] [address] [place] [address] Health Maintenance Due Date Last Done Comments Influenza Vaccine (Season Ended) 2025 09/15/2023, 10/18/2017, 10/18/2017, Additional history exists Insurance [employer] Care Teams National Van Truck Driver Relationship Specialty Start Date End Date Aashish Chand MD PCP - General Family Medicine 05/05/23
--- OUTSIDE RECORDS SUMMARY | 2025-04-30 12:02 | XMS_ITS | Clinical Summary ---
Author Organization [facility] Address [address] [place] [address] Care Team Providers Care Car Hopper Name Role Phone Unavailable Primary Care Provider Unavailabl e Allergies No known active allergies Medications levonorgestrel (KYLEENA) 17.5 mcg/24 hr (5 yrs) 19.5 mg IUD 1 Each by INTRAUTERINE route one time only. Active iv contrast (will be provided with radiology test)Indication s:Recurrent UTI,Urinary frequency,Urina ry tract infection without hematuria, site unspecified CT [...] CT contrast administration guidelines link. 1 Each 06/07/20 24 Active Encounters Date Type Department Care Team Description 04/26/2025 Get Medical Advice Urology [address] [place] [address] Merlin Steel MD Follow up appointment from Last 3 Months Social History Tobacco Use Types Packs/Day Years Used Date Smoking Tobacco: Never Assessed Area Deprivation Index Answer Date Neal rded National Score (1-100), lower number is lower ri sk 87 06/07/2024 State Score (1-10), lower number is lower risk 8 06/07/2024 Data from: https://www.neighborhoodatlas.medicine.[facility].edu/. Last address used for calculation [place] [address] Verdin 06/07/2024 Comments No Sex and Gender Information Value Date Recorded Sex Assigned at Not on file Legal Sex Female 11:53 AM EDT Gender Identity Not on file Sexual Orientation Not on file Last Filed Vital Signs Vital Sign [place] Time Taken Comments Blood Pressure 135/87 07/18/2024 11:46 AM EDT Pulse 78 07/18/2024 11:46 AM EDT Temperature - - Respiratory Rate - - Oxygen Saturation - - Inhaled Oxygen Concentration - - Weight 74.8 kg (165 lb) 07/18/2024 11:46 AM EDT Height - - Body Mass Index - - Plan of Treatment Upcoming Encounters Date Type Department Care Team (Late st Contact Info) Description 05/03/2025 3:00 PM EDT [facility] [address] [facility] [place] [address] Merlin Steel MD [address] [place], [place] [phone] UTI FOLLOW UP Health Maintenance Due Date Last Done Comments Peds To Adult Transition Ini tial Discussion 2011 Peds To Adult Transition Sindi ual Assessment 2013 Anxiety Screening 2017 Depression Screening 2017 HIV Screening 2017 Hepatitis C Screening 2017 Cervical Cancer Screening 2020 Covid-19 Vaccine (2023-2 5 season) 2024 11/06/2021, 01/08/2021, 12/11/2020 Influenza Vaccine (Season Ended) 2025 09/15/2023, 10/18/2017, 09/18/2016, Additional history exists DTaP,Tdap,Td Vaccine (8 - Td or Tdap) 07/15/2030 07/15/2020, 11/25/2010, 07/14/2005, Additional history exists Hepatitis B Vaccine Completed 08/22/2003, 05/16/2000, 04/18/2000 HPV Vaccine Completed 07/28/2013, 11/29/2012 Insurance [facility] Address: [address] [phone]
--- OUTSIDE RECORDS SUMMARY | 2025-04-30 12:19 | XMS_ITS | CCD ---
Author Organization [facility] Care Team Providers Care Radio/Tv Technician Name Role Phone Charity Fenton Attending Provider [phone] Maritza Singh Unavailable NON STAFF Primary Care Provider UnavailCARLEE Al Attending Provider NON STAFF Primary Care Provider UnavailDO Richi Eduardo Attending Provider [phone] JOCELINE RICHMOND Primary Care Physician DANYELLE NOLEN Primary Care Unavailable Divya Steven Attending Unavailable JOCELINE RICHMOND Referring Unavailable DANYELLE NOLEN Primary Care Unavailable Unavailable Primary Care Provider Unavailbao e NON STAFF Primary Care Provider UnavailDO Richi Joyce Attending Provider LY STEEL Attending Unavailable LY STEEL Referring Unavailable LY STEEL Referring Unavailable LY STEEL Attending Unavailable Josie - CARLEE FITCH Attending Provider [phone] JosieCARLEE Attending Provider [phone] Richi Dorado Attending Unavailable Richi Dorado P Admitting Unavailable NON STAFF Primary Care Unavailable Mariola Galindo M Attending Unavailable Mariola Galindo M Admitting Unavailable Richi Dorado Attending Unavailable Richi Dorado Admitting Unavailable Aashish Chand MD Primary Care Provider CLAUDINE QUICK Attending Unavailable RUBIO ELLIS Attending Unavailable SHEILA HERNANDEZ Attending Unavailable Unavailable Unavailable Unavailable Allergies Allergy Classification Reported Allergen(s) Allergy Type Date of Onset Reaction(s) Facility (5 sources) Sulfamethoxazole / Trimethoprim Drug Allergy 02-26-202 4 GI intolerance [facility] Medications Current Medications Medication Drug Class(es) Dates Sig (Normalized) Sig (Original) busPIRone hydrochloride 10 mg oral tablet (4 sources) Start: 12-20-2024 take 1 tablet by mouth in the morning, then take 1 tablet by mouth in the evening, then take 1 tablet by mouth at bedtime busPIRone (Buspar) 10 MG tablet Take 10 mg by mouth in the morning and 10 mg in the evening and 10 mg before bedtime. 12/20/2024 Active cefdinir 300 mg oral capsule (2 sources) Cephalosporin Antibacterial Start: 02-27-2025 End: 03-09-2025 take 1 capsule by mouth once cefdinir (Omnicef) 300 MG capsule Indications: Acute rhinosinusitis Take 1 capsule (300 mg) by mouth every 12 (twelve) hours for 10 days 20 capsule 02/27/2025 03/09/2025 Active cephalexin 500 mg oral capsule (3 sources) Cephalosporin Antibacterial Start: 08-03-2024 take 500 mg by mouth twice daily Cephalexin Active 500 MG PO Twice daily 14 August 03, 2024 12:00am Start: 06-05-2020 take 1 capsule by mo [facility] every twelve hours Cephalexin 500 MG 1 capsule Orally every 12 hrs for 10 day(s) May, Not-Taking ciprofloxacin 3 mg/ml / dexamethasone 1 mg/ml otic suspension (4 sources) Corticosteroid, Quinolone Antimicrobial Start: 02-27-2025 End: 03-06-2025 ciprofloxacin-dexAMETHasone (CiproDEX) otic suspension Indications: Acute swimmer's ear of both sides Administer 4 drops into affected ear(s) in the morning and 4 drops before bedtime. Do all this for 7 days. 7.5 mL 02/27/2025 03/06/2025 Active Start: 08-03-2024 Ciprofloxacin- Dexamethasone Active 4 DROPS OTIC Twice daily 7.5 August 03, 2024 12:00am escitalopram 10 mg oral tablet (3 sources) Serotonin Reuptake Inhibitor Start: 02-01-2025 take 1 tablet by mouth once daily escitalopram (Lexapro) 10 MG tablet Take 10 mg by mouth Daily 02/01/2025 Active Start: 04-17-2024 take 1 tablet by zofia once daily Lexapro 10 mg Tab 10 mg = 1 tab(s), Oral, Daily, Refills(s) 0 Start Date: 04/17/24 Status: Ordered iv contrast (will be provide d with radiology test) (6 sources) Start: 06-07-2024 iv contrast (w ill be provided with radiology test) Indications: Recurrent [...] CT contrast administration guidelines link. 1 Each 06/07/2024 Active Start: 06-07-2024 iv contrast (w ill be provided with radiology test) Indications: Recurrent [...] link. 1 Each 0 06/07/2024 Active levonorgestrel 0.350529 mg/hr intrauterine system (13 sources) Progestin, Progestin-containing Intrauterine Device Start: 04-17-2024 Kyleena 19.5 mg intrauterine device Refills(s) 0 Start Date: 04/17/24 Status: Ordered levonorgestrel ( KYLEENA) 17.5 mcg/24 hr (5 yrs) 19.5 mg IUD 1 Each by INTRAUTERINE route one time only. Active Levonorgestrel ( Kyleena) 19.5 MG intrauterine device Kyleena Active Kyleena 19.5 MG as directed Intrauterine Active methylPREDNISolone (2 sources) Corticosteroid Start: 02-27-2025 methylPREDNISolone (Medrol Dospak) 4 MG tablets Indications: Non-recurrent acute serous otitis media of both ears Follow schedule on package instructions 21 tablet 02/27/2025 Active oxybutynin chloride 5 mg oral tablet (1 source) Cholinergic Muscarinic Antagonist Start: 04-17-2024 End: 06-16-2024 take 1 tablet by mouth three times daily as needed oxybutynin 5 mg Tab 5 mg = 1 tab(s), Oral, TID, PRN for urinary discomfort, X 30 day(s), # 30 tab(s), Refills(s) 1, Pharmacy: [id number], 175, cm, 04/17/24 13:52:00 EDT, Height/Length [...] test. 150 mL 0 06/07/2024 06/07/2024 Active traZODone hydrochloride 50 mg oral tablet (3 sources) Serotonin Reuptake Inhibitor Start: 08-03-2024 Trazodone Active MG PO August 03, 2024 12:00am valACYclovir 1000 mg oral tablet (2 sources) Herpesvirus Nucleoside Analog DNA Polymerase Inhibitor, Herpes Simplex Virus Nucleoside Analog DNA Polymerase Inhibitor, Herpes Zoster Virus Nucleoside Analog DNA Polymerase Inhibitor Start: 08-03-2024 take 1000 mg by mouth three times daily Valacyclovir Active 1000 MG PO Three times daily 17 06August 03, 2024 12:00am Completed/Discontinued Medications Medication Drug Class(es) Dates Sig (Normalized) Sig (Original) ciprofloxacin 500 mg oral tablet (5 sources) Quinolone Antimicrobial Start: 07-18-2024 End: 07-18-2024 ciprofloxacin HCl 500 mg tab(s) (CIPRO) Start: 07-18-2024 End: 07-18-2024 take 1 dose by mouth once at mealtime 500 mg, ORAL, ONCE, 1 dose, On Tue07/18/24 at 0000, Administer 2 hours before or 4 hours after medications containing calcium, magnesium, aluminum, iron, or zinc (including antacids and sucralfate), and sevelamer. May be administered without regard to meals. Tube feedings should be held 1 hour before and 1 hour after administration., Antimicrobial indication: Prophylaxis fluconazole 150 mg oral tablet (1 source) [...] a day for 30 day(s) May, Not-Taking lidocaine hydrochloride 0.02 mg/mg topical gel (5 sources) Antiarrhythmic, Amide Local Anesthetic Start: 07-18-2024 End: 07-18-2024 lidocaine urojet 2 % 6 mL topical gel (GLYDO) Start: 07-18-2024 End: 07-18-2024 6 mL, URETHRAL, ONCE, 1 dose , On Tue07/18/24 at 0000, FOR EXTERNAL USE ONLY nitrofurantoin, macrocrystals 25 mg / nitrofurantoin, monohydrate 75 mg oral capsule (1 source) Nitrofuran Antibacterial Nitrofurantoin Monohyd Macro 100 MG Oral for 5 Days Not-Taking nystatin 652092 unt/ml oral suspension (1 source) Polyene Antifungal Start: 06-08-20 take 4 mL by mouth twice daily Nystatin 279401 UNIT/ML 4 ml Mouth/Throat Twice a day for 10 day(s) Swish and spit May, Not-Taking Sertraline (1 source) Serotonin Reuptake Inhibitor Zoloft Not-Taking Problems Active Problems Problem Classification Problem Date Documented Da te Episodic/Chronic Anxiety disorders (1 source) Generalized anxiety disorder 02-08-2020 Chronic Calculus of urinary tract (2 sources) Kidney stone; Translations: [Calculus of kidney] Onset: 04-16-2024 Episodic Genitourinary symptoms and ill-defined conditions (8 sources) Dysuria; Translations: [Increased frequency of urination] Onset: 04-17-2024 Episodic Immunizations and screening for infectious disease (1 source) Encounter for immunization; Translations: [Encounter for immunization] Onset: 09-12-2024 Episodic Mood disorders (1 source) Mild depression 06-27-2020 Chronic Mycoses (2 sources) Candidiasis of mouth; Translations: [Candidiasis of vagina] Resolved: 06-26-2019 06-27-2020 Episodic Other and unspecified benign neoplasm (2 sources) Melanocytic nevus of left upper limb; Translations: [Melanocytic nevi of left upper limb, including shoulder] 12-26-2024 Episodic Other circulatory disease (4 sources) Spider nevus; Translations: [Nevus, non-neoplastic] 12-26-2024 Episodic Other diseases of bladder and urethra (1 source) Disorder of bladder; Translations: [Other specified disorders of bladder] Onset: 04-17-2024 Chronic Other diseases of bladder and urethra (1 source) Spasm of bladder 04-17-2024 Chronic Other ear and sense organ disorders (2 sources) Acute otitis externa; Translations: [Swimmer's ear, bilateral] 02-27-2025 Episodic Other skin disorders (2 sources) Epidermoid cyst; Translations: [Epidermal cyst] 12-26-2024 Episodic Other upper respiratory infections (2 sources) Acute rhinosinusitis; Translations: [Acute sinusitis, unspecified] 02-27-2025 Episodic Otitis media and related conditions (7 sources) Acute right otitis media; Translations: [Acute bilateral otitis media with effusion] 06-27-2020 Episodic Pneumonia (except that caused by tuberculosis or sexually transmitted disease) (1 source) Pneumonia 02-08-2014 Episodic Urinary tract infections (12 sources) Recurrent urinary tract infection; Translations: [Urinary tract infection, site not specified] Onset: 06-07-2024 06-07-2024 Episodic Viral infection (4 sources) Herpes labialis; Translations: [Herpesviral vesicular dermatitis] 08-03-2024 Episodic Past or Other Problems Problem Classification [...] Test Name Value Interpretation Reference Range Facility Choriogonadotropin.beta subu nit ( test) [Presence] in Urineon 08-03-2024 Beta HCG ( test) Ql (U) Negative [facility] - Chemistry and C hemistry - challengeon 08-03-2024 Bilirubin Ql (U) Negative [facility] Glucose (U) [Mass/Vol] Negative [facility] Ketones Ql (U) Negative [facility] pH (U) 8.0 [pH] [facility] Specific gravity (U) [Rel density] 1.005 [facility] Urobilinogen (U) [Mass/Vol] 0.2 mg/dL [facility] - Microbiology an d Antimicrobial susceptibilityOrdered By: Mariola Galindo on 08-03-2024 Bacteria identified Cx Nom (U) 2 Days [facility] - Specimen inform ationon 08-03-2024 Appearance (U) cloudy [facility] Color (U) lightyellow [facility] - Urinalysison Leukocyte esterase Test strip Ql (U) trace [facility] Nitrite Ql (U) Negative [facility] Protein Ql (U) Negative [facility] No Panel Informationon 08-03 Urine Occult Blood large [facility] Urine Cultureon 08-03-2024 Bacteria identified Cx Nom (U) 40,000 colonies/ml mixed bacterial skin contaminants 2 Days PERFORMED BY: [facility] [address] [place] [address] PATHOLOGIST INTERFACE ENGINEER ALANIS SANCHEZ M.D. Normal [facility] Comment on above: Performed By: #### C UU #### [facility] [address] CNOVon 07-18-2024 CNOV Office Visit (UROLLN ) SHANDRA BRIDGES ([id number]) 2000 F Date Time Provider Department 07/18/24 11:00 AM LY STEEL During your visit today, we recorded the following information about you: Pulse Blood pressure Weight 78/minute 135/87 74.8 kg Marlyn Rome 07/18/2024 12:16 PM Signed CYSTOSCOPY Indications: Cysto 07-18-24 Recurrent UTIs with frequency and feeling of pressure. UA = -ve culture = -ve CTU 06-27-24 = -ve ANESTHESIA: 2% LOCAL XYLOCAIN JELLY. PATIENT WAS PLACED IN: Lithotomy GENETALIA PREPED WITH BETADINE AND DRAPED IN STERILE MANNER. CYSTOSCOPY WAS PERFORMED WITH: FLEXIBLE FIBEROPTIC CYSTOSCOPE 30 DEGREE LENSES FINDINGS: COTTON SWAB TEST: NOT APPLICABLE URETHAL MEATUS: NORMAL BLADDER NECK: CLOSED URETHAL DILIATION: No PVRV: SMALL STRESS TEST: NOT APPLICABLE CYSTOCELE: NO RECTOCELE: No PV EXAM: DEFERRED BLADDER: INFLAMMED: No TRABECULATIONS: No DIVERTICULAE: No STONES: No NORMAL URETERIC ORFICES: Yes NORMAL TRIGONE: Yes TUMOR: no COMPLICATIONS: No DIAGNOSIS: Normal cystoscopic findings. PLAN: DISCUSSED FINDINGS WITH PATIENT Recurrent UTI: P= UA + Culture in 6 months OV 1 week to follow By signing my name below, IMarlyn, attest [...] and is accurate and complete. Toni Pacheco Kamille, RN 07/18/2024 12:13 PM Signed PRE PROCEDURE NURSE ASSESSMENT Patient ID with two(2)identifiers verified by: Patricia Lerma RN Procedure Indication: Cystoscopy July 18, 2024, Time In: 1100 Latex Allergy: no Allergies reviewed and updated. Yes Pre-Procedure Vital Signs: BP 135/87 Pulse 78 Wt 74.8 kg (165 lb) LMP 05/26/2024 Heart valve replacement: No Joint replacement: No Back Office UA otained: not applicable Pre-Procedure Antibiotics: Cipro 500 mg orally, given during visit Current pain intensity is 0 on a 0-10 pain scale. Patient Prep: Betadine Scrub to perineum and placement of Sterile Drape. COMPLETED Anesthetic Given:6 cc 2% Lidocaine Jelly Patricia Lerma RN UNIVERSAL PROTOCOL / SAFETY CHECKLIST Procedure to be performed: Cystoscopy Sign in Communication: Completed Time Out: Team Confirms the Correct Patient, Correct Procedure, Correct Site and Site Marking, Correct Position (if applicable) Sign Out Discussion: Completed Patricia Lerma RN POST PROCEDURE NURSE ASSESSMENT Procedure/Indication: Cystoscopy Instruction sheet given and reviewed and patient verbalizes understanding: yes Current pain intensity is 0 on a 0-10 pain scale. Patricia Lerma RN AMBULATORY PATIENT EDUCATION THE FOLLOWING WAS EVALUATED Motivation To Learn: Eager Family/Significant Other Support: None - Unavailable/disinterest ed Cognitive Ability: Alert/Oriented Method of Instruction: Individual instruction The Following Influencing Factors Were Barriers To This Education Session: None The Following Physical Limitations Were Barriers To This Education Session: None Instruction Provided To: Patient Field Worker Present: not applicable Discipline: Nursing Learning Topic: SURVIVAL SKILLS: Symptom Management Patient Evaluation: Verbalizes understanding: Yes Supplemental Material Given: None Instructed By Patricia Lerma RN In Department Urology . UNIVERSAL PROTOCOL / SAFETY CHECKLIST Procedure to be Performed: cystoscopy Sign In: A Moment of CARE was completed. Personnel directly involved with the procedure wore the appropriate PPE (Personal Protective Equipment). No special equipment needed. Patient/Surrogate Stated/Verified: PATIENT VERIFIED(optional for EMERGENT procedures): Patient name, Date of , Relevant allergies, and The intended procedure Time Out Communication: Intended patient and procedure match the source documents. Consent documented and matches the intended procedure. Relevant labs, photos, and/or imaging studies have been reviewed. Correct side/site marked and visible. Medications required for procedure verified. Fire risk assessed and interventions discussed. No implant(s) inserted. Sign Out: SIGN OUT (optional for EMERGENT procedures): No specimen collected. All instruments, equipment, possible retained foreign bodies accounted for. Post-procedure follow-up management communicated and Plan of Care Visit completed when applicable. DENNIS WrightMarlyn boateng 07/18/2024 12:00 PM Addendum UA + Culture in 6 months OV w 1 week (more content not included)... Normal [facility] Automated basophil %Ordered By: Richi Liu on 06-28-2024 Basophils/100 WBC (Bld) 0.5 % Normal . [facility] Comment on above: Performed By: #### P ILLAR LIPID, PILLAR CBC, PILLAR TSH, PILLAR BMP #### [address] Automated basophil countOrde red By: Richi Liu on 06-28-2024 Basophils (Bld) [#/Vol] 0.0 10*3/uL Normal 0.0-0.2 [facility] Comment on above: Result Comment: PERF ORMED BY: [place] [address] PATHOLOGIST INTERFACE ENGINEER ALANIS SANCHEZ M.D. Performed By: #### P ILLAR LIPID, PILLAR CBC, PILLAR TSH, PILLAR BMP #### [address] Automated blood monocyte cou ntOrdered By: Richi Liu on 06-28-2024 Monocytes (Bld) [#/Vol] 0.5 10*3/uL Normal 0.0-0.8 [facility] Comment on above: Performed By: #### P ILLAR LIPID, PILLAR CBC, PILLAR TSH, PILLAR BMP #### [address] Automated eosinophil %Ordere d By: Richi Liu on 06-28-2024 Eosinophils/100 WBC (Bld) 3.0 % Normal . [facility] Comment on above: Performed By: #### P ILLAR LIPID, PILLAR CBC, PILLAR TSH, PILLAR BMP #### [address] Automated eosinophil countOr dered By: Richi Liu on 06-28-2024 Eosinophils (Bld) [#/Vol] 0.2 10*3/uL Normal 0.0-0.45 [facility] Comment on above: Performed By: #### P ILLAR LIPID, PILLAR CBC, PILLAR TSH, PILLAR BMP #### [facility] [address] [place] [id number] [facility] Automated monocyte %Ordered By: Richi Liu on 06-28-2024 Monocytes/100 WBC (Bld) 9.4 % Normal . [facility] Comment on above: Performed By: #### P ILLAR LIPID, PILLAR CBC, PILLAR TSH, PILLAR BMP #### [facility] [address] Automated neutrophil %Ordere d By: Richi Liu on 06-28-2024 Neutrophils/100 WBC (Bld) 56.3 % Normal . [facility] Comment on above: Performed By: #### P ILLAR LIPID, PILLAR CBC, PILLAR TSH, PILLAR BMP #### [facility] [address] [place] [address] [place] Calcium [Mass/volume] in Ser um or PlasmaOrdered By: Richi Liu on 06-28-2024 Calcium [Mass/Vol] 9.3 mg/dL Normal 8.6-10.3 [facility] Comment on above: Performed By: #### P ILLAR LIPID, PILLAR CBC, PILLAR TSH, PILLAR BMP #### [facility] [address] [place] [address] [place] Carbon dioxide, total [Moles /volume] in Serum or PlasmaOrdered By: Richi Liu on 06-28-2024 CO2 [Moles/Vol] 28.1 mmol/L Normal 21.0-31.0 [facility] Comment on above: Performed By: #### P ILLAR LIPID, PILLAR CBC, PILLAR TSH, PILLAR BMP #### [facility] [address] [place], [place] [id number] [place] Chloride [Moles/volume] in S mariluz or PlasmaOrdered By: Richi Liu on 06-28-2024 Chloride [Moles/Vol] 105 mmol/L Normal 98-107 [facility] Comment on above: Performed By: #### P ILLAR LIPID, PILLAR CBC, PILLAR TSH, PILLAR BMP #### [facility] [address] Cholesterol [Mass/volume] in Serum or PlasmaOrdered By: Richi Liu on 06-28-2024 Cholesterol [Mass/Vol] 160 mg/dL Normal 140-200 [facility] Comment on above: Chol less than 200 m g/dl low riskChol 201-239 mg/dl borderline riskChol 240 mg/dl and greater high risk Result Comment: Chol less than 200 mg/dl low risk Chol 201-239 mg/dl borderline risk Chol 240 mg/dl and greater high risk Performed By: #### P ILLAR LIPID, PILLAR CBC, PILLAR TSH, PILLAR BMP #### [facility] [address] Cholesterol in LDL Calc [Mas s/Vol]Ordered By: Richi Liu on 06-28-2024 Cholesterol in LDL [Mass/Vol] 94 mg/dL 0-100 [facility] Comment on above: LDL ATP III CLASSIFI CATIONLDL less than 100 mg/dL OptimalLDL 100-129 mg/dL Near or above optimalLDL 130-159 mg/dL Borderline highLDL 160-189 mg/dL HighLDL greater than 189 mg/dL Very high Cholesterol in VLDL Calc [Ma ss/Vol]Ordered By: Richi Liu on 06-28-2024 Cholesterol in VLDL [Mass/Vol] 14 mg/dL [facility] Creatinine [Mass/volume] in Serum or PlasmaOrdered By: Richi Liu on 06-28-2024 Creatinine [Mass/Vol] 0.78 mg/dL Normal 0.60-1.20 [facility] Comment on above: Performed By: #### P ILLAR LIPID, PILLAR CBC, PILLAR TSH, PILLAR BMP #### [facility] [address] Employee Basic Metabolic Flannery syed 06-28-2024 GFR/1.73 sq M.predicted MDRD (S/P/Bld) [Vol rate/Area] mL/min/{1.73_m2} Normal [facility] Comment on above: Performed By: #### P ILLAR LIPID, PILLAR CBC, PILLAR TSH, PILLAR BMP #### [facility] [address] Employee Complete Blood Coun ton 06-28-2024 Mean Corpuscular HGB Conc 33.3 g/dL Normal 32.0-35.0 [facility] Comment on above: Performed By: #### P ILLAR LIPID, PILLAR CBC, PILLAR TSH, PILLAR BMP #### [facility] [address] NRBC% 0.1 /100{WBC} Normal 0-0.5 [facility] Comment on above: Performed By: #### P ILLAR LIPID, PILLAR CBC, PILLAR TSH, PILLAR BMP #### [address] Employee Lipid Profileon LDL Cholesterol,Calculated 94 mg/dL Normal 0-100 [facility] Comment on above: Result Comment: LDL ATP III CLASSIFICATION LDL less than 100 mg/dL Optimal LDL 100-129 mg/dL Near or above optimal LDL 130-159 mg/dL Borderline high LDL 160-189 mg/dL High LDL greater than 189 mg/dL Very high Performed By: #### P ILLAR LIPID, PILLAR CBC, PILLAR TSH, PILLAR BMP #### [address] Triglyceride w/Reflex 74 mg/dL Normal 0-149 [facility] Comment on above: Result Comment: TRIG ATP III CLASSIFICATION TRIG less than 150 mg/dL Normal TRIG 150-199 mg/dL Borderline high TRIG 200-500 mg/dL High TRIG greater than 500 mg/dL Very high Standard traceable to the Center for Disease Conrtrol and Prevention (CDC) test method. Performed By: #### P ILLAR LIPID, PILLAR CBC, PILLAR TSH, PILLAR BMP #### [address] VLDL CHOLESTEROL 14 mg/dL Normal [facility] Comment on above: Performed By: #### P ILLAR LIPID, PILLAR CBC, PILLAR TSH, PILLAR BMP #### [facility] [address] [place] [address] Employee Thyroid Stim Hormon daniel 06-28-2024 Employee Thyroid Stim Hormone 1.35 u[iU]/mL Normal 0.45-5.33 [facility] Comment on above: Result Comment: PERF ORMED BY: [place] [address] PATHOLOGIST INTERFACE ENGINEER ALANIS SANCHEZ M.D. Performed By: #### P ILLAR LIPID, PILLAR CBC, PILLAR TSH, PILLAR BMP #### [address] Erythrocyte distribution wid th [Ratio] by Automated countOrdered By: Richi Liu on 06-28-2024 Erythrocyte distribution width (RBC) [Ratio] 12.4 % Normal 11.9-15.3 [facility] Comment on above: Performed By: #### P ILLAR LIPID, PILLAR CBC, PILLAR TSH, PILLAR BMP #### [address] Erythrocytes [#/volume] in B lood by Automated countOrdered By: Richi Liu on 06-28-2024 RBC (Bld) [#/Vol] 4.49 10*6/uL Normal 3.60-5.00 [facility] Comment on above: Performed By: #### P ILLAR LIPID, PILLAR CBC, PILLAR TSH, PILLAR BMP #### [facility] [address] [place] [address] Glucose [Mass/volume] in Ser um or PlasmaOrdered By: Richi Liu on 06-28-2024 Glucose [Mass/Vol] 89 mg/dL Normal 70-100 [facility] Comment on above: Performed By: #### P ILLAR LIPID, PILLAR CBC, PILLAR TSH, PILLAR BMP #### [address] Hematocrit [Volume Fraction] of Blood by Automated countOrdered By: Richi Liu on 06-28-2024 Hematocrit (Bld) [Volume fraction] 41.4 % Normal 34.0-46.4 [facility] Comment on above: Performed By: #### P ILLAR LIPID, PILLAR CBC, PILLAR TSH, PILLAR BMP #### [facility] [address] Hemoglobin [Mass/volume] in BloodOrdered By: Richi Liu on 06-28-2024 Hemoglobin (Bld) [Mass/Vol] 13.8 g/dL Normal 11.8-15.4 [facility] Comment on above: Performed By: #### P ILLAR LIPID, PILLAR CBC, PILLAR TSH, PILLAR BMP #### [facility] [address] Leukocytes [#/volume] correc paulina for nucleated erythrocytes in Blood by Automated counOrdered By: Richi Liu on 06-28-2024 WBC corrected for nucl RBC Auto (Bld) [#/Vol] 5.6 10*3/uL 3.8-11.6 [facility] Leukocytes [#/volume] in Blo od by Automated countOrdered By: Richi Liu on 06-28-2024 WBC (Bld) [#/Vol] 5.6 10*3/uL Normal 3.8-11.6 [facility] Comment on above: Performed By: #### P ILLAR LIPID, PILLAR CBC, PILLAR TSH, PILLAR BMP #### [facility] [address] [place] [address] [place] Lymphocytes [#/volume] in Bl ood by Automated countOrdered By: Richi Liu on 06-28-2024 Lymphocytes (Bld) [#/Vol] 1.7 10*3/uL Normal 1.00-4.8 [facility] Comment on above: Performed By: #### P ILLAR LIPID, PILLAR CBC, PILLAR TSH, PILLAR BMP #### [facility] [address] [place] [address] [place] Lymphocytes/100 leukocytes i n Blood by Automated countOrdered By: Richi Liu on 06-28-2024 Lymphocytes/100 WBC (Bld) 30.8 % Normal . [facility] Comment on above: Performed By: #### P ILLAR LIPID, PILLAR CBC, PILLAR TSH, PILLAR BMP #### [facility] [address] [place] [address] MCH [Entitic mass] by Automa paulina countOrdered By: Richi Liu on 06-28-2024 MCH (RBC) [Entitic mass] 30.7 pg Normal 24.7-34.3 [facility] Comment on above: Performed By: #### P ILLAR LIPID, PILLAR CBC, PILLAR TSH, PILLAR BMP #### [facility] [address] [place] [address] MCHC Auto (RBC) [Mass/Vol]Or dered By: Richi Liu on 06-28-2024 MCHC (RBC) [Mass/Vol] 33.3 g/dL 32.0-35.0 [facility] MCV [Entitic volume] by Auto mated countOrdered By: Richi Liu on 06-28-2024 MCV (RBC) [Entitic vol] 92.2 fL Normal 80-100 [facility] Comment on above: Performed By: #### P ILLAR LIPID, PILLAR CBC, PILLAR TSH, PILLAR BMP #### [facility] [address] [place] [address] Neutrophils [#/volume] in Bl ood by Automated countOrdered By: Richi Liu on 06-28-2024 Neutrophils (Bld) [#/Vol] 3.2 10*3/uL Normal 1.8-7.7 [facility] Comment on above: Performed By: #### P ILLAR LIPID, PILLAR CBC, PILLAR TSH, PILLAR BMP #### [facility] [address] [place] [address] No Panel InformationOrdered By: Richi Liu on 06-28-2024 Estimated GFR (CKD-EPI) > 60.0 mL/Min [facility] Creatinine Clearance (Chem N/A [facility] Nucleated erythrocytes [Pres ence] in Blood by Automated countOrdered By: Richi Liu on 06-28-2024 Nucleated RBC Auto Ql (Bld) 0.1 /100{WBC} 0-0.5 [facility] Platelet mean volume [Entiti c volume] in Blood by Automated countOrdered By: Richi Liu on 06-28-2024 Platelet mean volume (Bld) [Entitic vol] 9.5 fL Normal 6.3-10.7 [facility] Comment on above: Performed By: #### P ILLAR LIPID, PILLAR CBC, PILLAR TSH, PILLAR BMP #### [facility] [address] Platelets [#/volume] in Bloo d by Automated countOrdered By: Richi Liu on 06-28-2024 Platelets (Bld) [#/Vol] 257 10*3/uL Normal 150-450 [facility] Comment on above: Performed By: #### P ILLAR LIPID, PILLAR CBC, PILLAR TSH, PILLAR BMP #### [facility] [address] Potassium [Moles/volume] in Serum or PlasmaOrdered By: Richi Liu on 06-28-2024 Potassium [Moles/Vol] 4.5 mmol/L Normal 3.5-5.1 [facility] Comment on above: Performed By: #### P ILLAR LIPID, PILLAR CBC, PILLAR TSH, PILLAR BMP #### [facility] [address] [place] [address] Serum or plasma anion gap de terminationOrdered By: Richi Liu on 06-28-2024 Anion gap [Moles/Vol] 9.4 mmol/L Normal 6.0-15.0 [facility] Comment on above: Performed By: #### P ILLAR LIPID, PILLAR CBC, PILLAR TSH, PILLAR BMP #### [facility] [address] Serum or plasma high density lipoprotein (HDL) cholesterol measurementOrdered By: Richi Liu on 06-28-2024 Cholesterol in HDL [Mass/Vol] 51 mg/dL Normal 23-92 [facility] Comment on above: HDL CHOL ATP-III CLA SSIFICATION Cardiovascular RiskHDL > or equal to 60 mg/dL LOWHDL < 40 mg/dL HIGH Result Comment: HDL CHOL ATP-III CLASSIFICATION Cardiovascular Risk HDL > or equal to 60 mg/dL LOW HDL < 40 mg/dL HIGH Performed By: #### P ILLAR LIPID, PILLAR CBC, PILLAR TSH, PILLAR BMP #### [facility] [address] Serum or plasma total choles terol/high density lipoprotein (HDL) cholesterol mass ratOrdered By: Richi Liu on 06-28-2024 Cholesterol.total/Yoana sterol in HDL [Mass ratio] 3.1 {ratio} Normal <5.0 [facility] Comment on above: Performed By: #### P ILLAR LIPID, PILLAR CBC, PILLAR TSH, PILLAR BMP #### [facility] [address] Sodium [Moles/volume] in Ser um or PlasmaOrdered By: Richi Liu on 06-28-2024 Sodium [Moles/Vol] 138 mmol/L Normal 136-145 [facility] Comment on above: Performed By: #### P ILLAR LIPID, PILLAR CBC, PILLAR TSH, PILLAR BMP #### [facility] [address] Thyrotropin [Units/volume] i n Serum or PlasmaOrdered By: Richi Liu on 06-28-2024 TSH Qn 1.35 m[IU]/L 0.45-5.33 [facility] Triglyceride [Mass/volume] i n Serum or PlasmaOrdered By: Richi Liu on 06-28-2024 Triglyceride [Mass/Vol] 74 mg/dL 0-149 [facility] Comment on above: TRIG ATP III CLASSIF ICATIONTRIG less than 150 mg/dL NormalTRIG 150-199 mg/dL Borderline highTRIG 200-500 mg/dL High TRIG greater than 500 mg/dL Very highStandard traceable to the Center for Disease Conrtrol and Prevention (CDC) test method. Urea nitrogen [Mass/volume] in Serum or PlasmaOrdered By: Richi Liu on 06-28-2024 Urea nitrogen [Mass/Vol] 11 mg/dL Normal 7-25 [facility] Comment on above: Performed By: #### P ILLAR LIPID, PILLAR CBC, PILLAR TSH, PILLAR BMP #### [facility] [address] [place] [id number] [facility] CT UROGRAM WO/W IVCONon 07-3 CT UROGRAM WO/W IVCON * * *Final Report* * * DATE OF EXAM: Jun 27 2024 11:53AM [facility] 0560 - CT UROGRAM WO/W IVCON / PROCEDURE REASON: multiple diagnoses * * * * Physician Interpretation * * * * RESULT: EXAMINATION: CT ABDOMEN AND PELVIS WITHOUT AND WITH IV CONTRAST, INCLUDING EXCRETORY PHASE IMAGING (CT UROGRAM) 3D RECONSTRUCTIONS CLINICAL HISTORY: Recurrent UTI Urinary frequency Urinary tract infection without hematuria, site unspecified TECHNIQUE: CT urogram protocol including unenhanced, combined renal parenchymal phase and excretory phase (split bolus) renal imaging was obtained following IV contrast. Normal saline was also administered. No oral contrast was given. 3D image post-processing was performed at the request of the referring physician, on the CT scanner workstation under physician supervision. M: CTU_2 Contrast: IV: 100 ml of Omnipaque 350 Oral Contrast: None CT Radiation dose: Integrated dose-length product (DLP) for this visit = 983 mGy*cm. CT Dose Reduction Employed: Automated exposure control (AEC) COMPARISON: None. RESULT: Kidneys and urinary tract: Right: Precontrast images demonstrate no urolithiasis. Right kidney enhances homogeneously without hydroureteronephrosis or enhancing renal masses. Normal excretion of contrast into the right collecting system. No filling defects within the opacified collecting system. Left: Precontrast images demonstrate no urolithiasis. Left kidney enhances homogeneously without hydroureteronephrosis or enhancing renal masses. Normal excretion of contrast into the left collecting system. No filling defects within the opacified collecting system. Bladder: No bladder calculi or discrete bladder masses. Abdomen and Pelvis: Liver: No focal hepatic lesions. Spleen: No focal splenic lesion. Pancreas: No focal pancreatic lesions. Adrenals: No mass. Biliary: No bile duct dilation. No gallbladder wall thickening. Vasculature: The celiac axis and SMA are patent. The portal vein and branches, splenic vein, SMV, and hepatic veins are patent. Abdominal aorta is normal in caliber. GI tract: No bowel obstruction. Normal appendix. Lymph nodes: No lymphadenopathy by CT size criteria. Mesentery/Peritoneum: No mass, ascites, or fluid collection. Pelvis: IUD in the endometrial canal. Bones/Soft Tissues: No aggressive osseous lesions. Lower thorax: Lower lungs are clear. Tmr Teacher (topogram) images: Unremarkable. IMPRESSION: Unremarkable CT urogram. Transcribe Date/Time: Jun 28 2024 9:20A Dictated by: BRIAN MORRISON MD This examination was interpreted and the report reviewed and electronically signed by: BRIAN MORRISON MD on Jun 28 2024 9:29AM EST Thank you for allowing us to participate in the care of your patient. Should there be any questions regarding this interpretation, please call [phone]. If you are unable to reach us at the number above, please feel free to contact [facility] at [phone]. [id number] Normal [facility] CNOVon 06-07-2024 CNOV Office Visit (UROLLN ) SHANDRA BRIDGES ([id number]) 2000 F Date Time Provider Department 06/07/24 3:40 PM LY STEEL During your visit today, we recorded the following information about you: Pulse Blood pressure Weight Last Period 71/minute 126/81 74.8 kg 05/26/24 Marlyn Rome 06/07/2024 4:18 PM Signed Shandra Bridges [address] [place] [address] is a 23 year old female with [...] this visit. ALLERGY: ALLERGIES Not on File ========= REVIEW OF SYSTEMS ========= GENERAL: No fever, no fatigue and no [...] hematomas or no bleeding from the gums. ======== PHYSICAL EXAM: ======== GENERAL: Alert, oriented and in no distress. [...] of Dr. Steel. Zaira Dueñasibe Provider Attestation: Ly Bonilla M.D., personally performed the services described in this documentation. All medical record entries made by the scribe were at my direction and in my presence. I have reviewed the chart and discharge instructions (if applicable) and agree that the record reflects my personal performance and is accurate and complete. Ly Steel M.D. Marlyn Rome 06/07/2024 4:16 PM Addendum UA + culture [...] [N39.0] Order(s):URINALYSIS, WITH MICROSCOPIC [SQUAWMIC] Order #: [id number] FUTURE URINE CULTURE [SQURCUL] Order #: [id number] FUTURE CT UROGRAM WO/W IVCON [[id number]] Order #: [id number] FUTURE iv contrast (will be provided with [...] nursing sean (more content not included)... Normal [facility] Elena Formson 04-18-2024 Forms [id number] IFF Normal [facility] Physician Referralon 024 Physician Referral [id number] TIFF Normal [facility] RAD - Ultrasound Reporton RAD - Ultrasound Report [id number] FF Normal [facility] Screenson 04-18-2024 Screens [id number] TIFF Normal [facility] Patient Educationon 04-17-20 24 Patient Education Urology Urinary Frequency, Adult Urinary [...] keep your urine pale yellow. ? Take [id number]-dhlvdgs or prescription medicines. ? Eat foods that are high in fiber, such as beans, whole grains, and fresh fruits and vegetables. ? Limit foods that are high in fat and processed sugars, such as fried or sweet foods. General instructions ? Take [id number]-[id number] and prescription medicines only as told by [...] muscles that help control urination. ? Take fqqk-kru-[id number] and prescription medicines only as told by your health care provider. ? Contact a health care provider if your symptoms do not improve or get worse. This information is not intended to replace advice given to you by your health care provider. Make sure you discuss any questions you have with your health care provider. Document Revised: 06/19/2021 Document Reviewed: 06/19/2021 [employer] Patient Education ? 2022 [employer] Kidney Stones Kidney stones are rock-like masses [...] or sympt (more content not included)... Normal [facility] Alanine aminotransferase [En zymatic activity/volume] in Serum or PlasmaOrdered By: Richi Liu on 09-20-2023 ALT [Catalytic activity/Vol] 9 U/L 7-52 [facility] Albumin [Mass/volume] in Ser um or Plasma by Bromocresol green (BCG) dye binding methoOrdered By: Richi Liu on 09-20-2023 Albumin BCG dye [Mass/Vol] 4.3 g/dL 3.5-5.7 [facility] Alkaline phosphatase [Enzyma tic activity/volume] in Serum or PlasmaOrdered By: Richi Liu on 09-20-2023 ALP [Catalytic activity/Vol] 51 U/L 34-104 [facility] Aspartate aminotransferase [ Enzymatic activity/volume] in Serum or PlasmaOrdered By: Richi Liu on 09-20-2023 AST [Catalytic activity/Vol] 15 U/L 13-39 [facility] Basophils Auto (Bld) [#/Vol] Ordered By: Richi Liu on 09-20-2023 Basophils (Bld) [#/Vol] 0.0 10*3/uL 0.0-0.2 [facility] Basophils/100 WBC Auto (Bld) Ordered By: Richi Liu on 09-20-2023 Basophils/100 WBC (Bld) 0.5 % . [facility] Bilirubin.total [Mass/volume ] in Serum or PlasmaOrdered By: Richi Liu on 09-20-2023 Bilirubin [Mass/Vol] 0.7 mg/dL 0.3-1.0 [facility] Calcium [Mass/volume] in Ser um or PlasmaOrdered By: Richi Liu on 09-20-2023 Calcium [Mass/Vol] 9.2 mg/dL 8.6-10.3 [facility] Carbon dioxide, total [Moles /volume] in Serum or PlasmaOrdered By: Richi Liu on 09-20-2023 CO2 [Moles/Vol] 28.5 mmol/L 21.0-31.0 [facility] Chloride [Moles/volume] in S mariluz or PlasmaOrdered By: Richi Liu on 09-20-2023 Chloride [Moles/Vol] 107 mmol/L 98-107 [facility] Cholesterol [Mass/volume] in Serum or PlasmaOrdered By: Richi Liu on 09-20-2023 Cholesterol [Mass/Vol] 154 mg/dL 140-200 [facility] Comment on above: Chol less than 200 m g/dl low riskChol 201-239 mg/dl borderline riskChol 240 mg/dl and greater high risk Cholesterol in LDL Calc [Mas s/Vol]Ordered By: Richi Liu on 09-20-2023 Cholesterol in LDL [Mass/Vol] 87 mg/dL 0-100 [facility] Comment on above: LDL ATP III CLASSIFI CATIONLDL less than 100 mg/dL OptimalLDL 100-129 mg/dL Near or above optimalLDL 130-159 mg/dL Borderline highLDL 160-189 mg/dL HighLDL greater than 189 mg/dL Very high Cholesterol in VLDL Calc [Ma ss/Vol]Ordered By: Richi Liu on 09-20-2023 Cholesterol in VLDL [Mass/Vol] 13 mg/dL [facility] Creatinine [Mass/volume] in Serum or PlasmaOrdered By: Richi Liu on 09-20-2023 Creatinine [Mass/Vol] 0.67 mg/dL 0.60-1.20 [facility] Eosinophils Auto (Bld) [#/Vo l]Ordered By: Richi Liu on 09-20-2023 Eosinophils (Bld) [#/Vol] 0.2 10*3/uL 0.0-0.45 [facility] Eosinophils/100 WBC Auto (Bl d)Ordered By: Richi Liu on 09-20-2023 Eosinophils/100 WBC (Bld) 4.8 % . [facility] Erythrocyte distribution wid th Auto (RBC) [Ratio]Ordered By: Richi Liu on 09-20-2023 Erythrocyte distribution width (RBC) [Ratio] 12.9 % 11.9-15.3 [facility] Globulin Calc (S) [Mass/Vol] Ordered By: Richi Liu on 09-20-2023 Globulin (S) [Mass/Vol] 2.5 g/dL [facility] Glucose [Mass/volume] in Ser um or PlasmaOrdered By: Richi Liu on 09-20-2023 Glucose [Mass/Vol] 87 mg/dL 70-100 [facility] Hematocrit Auto (Bld) [Volum e fraction]Ordered By: Richi Liu on 09-20-2023 Hematocrit (Bld) [Volume fraction] 41.0 % 34.0-46.4 [facility] Hemoglobin [Mass/volume] in BloodOrdered By: Richi Liu on 09-20-2023 Hemoglobin (Bld) [Mass/Vol] 13.9 g/dL 11.8-15.4 [facility] Leukocytes [#/volume] correc paulina for nucleated erythrocytes in Blood by Automated counOrdered By: Richi Liu on 09-20-2023 WBC corrected for nucl RBC Auto (Bld) [#/Vol] 5.1 10*3/uL 3.8-11.6 [facility] Lymphocytes Auto (Bld) [#/Vo l]Ordered By: Richi Liu on 09-20-2023 Lymphocytes (Bld) [#/Vol] 1.8 10*3/uL 1.00-4.8 [facility] Lymphocytes/100 WBC Auto (Bl d)Ordered By: Richi Liu on 09-20-2023 Lymphocytes/100 WBC (Bld) 35.3 % . [facility] MCH Auto (RBC) [Entitic mass ]Ordered By: Richi Liu on 09-20-2023 MCH (RBC) [Entitic mass] 30.9 pg 24.7-34.3 [facility] MCHC Auto (RBC) [Mass/Vol]Or dered By: Richi Liu on 09-20-2023 MCHC (RBC) [Mass/Vol] 33.9 g/dL 32.0-35.0 [facility] MCV Auto (RBC) [Entitic vol] Ordered By: Richi Liu on 09-20-2023 MCV (RBC) [Entitic vol] 90.9 fL 80-100 [facility] Monocytes Auto (Bld) [#/Vol] Ordered By: Richi Liu on 09-20-2023 Monocytes (Bld) [#/Vol] 0.4 10*3/uL 0.0-0.8 [facility] Monocytes/100 WBC Auto (Bld) Ordered By: Richi Liu on 09-20-2023 Monocytes/100 WBC (Bld) 7.8 % . [facility] Neutrophils Auto (Bld) [#/Vo l]Ordered By: Richi Liu on 09-20-2023 Neutrophils (Bld) [#/Vol] 2.7 10*3/uL 1.8-7.7 [facility] Neutrophils/100 WBC Auto (Bl d)Ordered By: Richi Liu on 09-20-2023 Neutrophils/100 WBC (Bld) 51.6 % . [facility] No Panel InformationOrdered By: Richi Liu on 09-20-2023 Estimated GFR (CKD-EPI) > 60.0 mL/Min [facility] Creatinine Clearance (Chem N/A [facility] Nucleated erythrocytes [Pres ence] in Blood by Automated countOrdered By: Richi Liu on 09-20-2023 Nucleated RBC Auto Ql (Bld) 0.2 /100{WBC} 0-0.5 [facility] Platelet mean volume Auto (B ld) [Entitic vol]Ordered By: Richi Liu on 09-20-2023 Platelet mean volume (Bld) [Entitic vol] 9.4 fL 6.3-10.7 [facility] Platelets Auto (Bld) [#/Vol] Ordered By: Richi Liu on 09-20-2023 Platelets (Bld) [#/Vol] 230 10*3/uL 150-450 [facility] Potassium [Moles/volume] in Serum or PlasmaOrdered By: Richi Liu on 09-20-2023 Potassium [Moles/Vol] 4.4 mmol/L 3.5-5.1 [facility] Protein [Mass/volume] in Ser um or PlasmaOrdered By: Richi Liu on 09-20-2023 Protein [Mass/Vol] 6.8 g/dL 6.4-8.9 [facility] RBC Auto (Bld) [#/Vol]Ordere d By: Richi Liu on 09-20-2023 RBC (Bld) [#/Vol] 4.52 10*6/uL 3.60-5.00 [facility] Serum or plasma albumin/glob ulin mass ratioOrdered By: Richi Liu on 09-20-2023 Albumin/Globulin [Mass ratio] 1.7 {ratio} [facility] Serum or plasma anion gap de terminationOrdered By: Richi Liu on 09-20-2023 Anion gap [Moles/Vol] 8.9 mmol/L 6.0-15.0 [facility] Serum or plasma high density lipoprotein (HDL) cholesterol measurementOrdered By: Richi Liu on 09-20-2023 Cholesterol in HDL [Mass/Vol] 53 mg/dL 23-92 [facility] Comment on above: HDL CHOL ATP-III CLA SSIFICATION Cardiovascular RiskHDL > or equal to 60 mg/dL LOWHDL < 40 mg/dL HIGH Serum or plasma total choles terol/high density lipoprotein (HDL) cholesterol mass ratOrdered By: Richi Liu on 09-20-2023 Cholesterol.total/Yoana sterol in HDL [Mass ratio] 2.9 {ratio} <5.0 [facility] Sodium [Moles/volume] in Ser um or PlasmaOrdered By: Richi Liu on 09-20-2023 Sodium [Moles/Vol] 140 mmol/L 136-145 [facility] Thyrotropin [Units/volume] i n Serum or PlasmaOrdered By: Richi Liu on 09-20-2023 TSH Qn 1.58 m[IU]/L 0.45-5.33 [facility] Triglyceride [Mass/volume] i n Serum or PlasmaOrdered By: Richi Liu on 09-20-2023 Triglyceride [Mass/Vol] 69 mg/dL 0-149 [facility] Comment on above: TRIG ATP III CLASSIF ICATIONTRIG less than 150 mg/dL NormalTRIG 150-199 mg/dL Borderline highTRIG 200-500 mg/dL High TRIG greater than 500 mg/dL Very highStandard traceable to the Center for Disease Conrtrol and Prevention (CDC) test method. Urea nitrogen [Mass/volume] in Serum or PlasmaOrdered By: Richi Liu on 09-20-2023 Urea nitrogen [Mass/Vol] 10 mg/dL 7- [facility] WBC Auto (Bld) [#/Vol]Ordere d By: Richi Liu on 09-20-2023 WBC (Bld) [#/Vol] 5.1 10*3/uL 3.8-11.6 [facility] Urinalysis - AUTOMATEDon Appearance (U) clear [employer] Other Bilirubin Ql (U) Negative [employer] Other Color (U) pink [employer] Other Glucose Ql (U) Negative [employer] Other Hemoglobin Ql (U) large [employer] Other Ketones Ql (U) Negative [employer] Other Leukocyte esterase Test strip Ql (U) trace [employer] Other Nitrite Ql (U) Negative [employer] Other pH (U) 6.5 [pH] [employer] Other Protein Ql (U) 30mg [employer] Other Specific gravity (U) [Rel density] 1.010 [employer] Other Urobilinogen (U) [Mass/Vol] 0.2 mg/dL [employer] Other Urinalysis - AUTOMATED No rt [employer] Other Body fluid albumin measureme nt (mass/volume)on 01-20-2021 Albumin (Body fld) [Mass/Vol] 4.0 g/dL 3.2-5.5 [facility] Cholesterol [Mass/volume] in Serum or Plasmaon 01-20-2021 Cholesterol [Mass/Vol] 167 mg/dL 140-200 [facility] Comment on above: Chol less than 200 m g/dl low riskChol 201-239 mg/dl borderline riskChol 240 mg/dl and greater high risk Cholesterol in LDL [Mass/vol ume] in Serum or Plasma by calculationon 01-20-2021 Cholesterol in LDL [Mass/Vol] 99 mg/dL 0-100 [facility] Comment on above: LDL ATP III CLASSIFI CATIONLDL less than 100 mg/dL OptimalLDL 100-129 mg/dL Near or above optimalLDL 130-159 mg/dL Borderline highLDL 160-189 mg/dL HighLDL greater than 189 mg/dL Very high Cholesterol in VLDL [Mass/vo lume] in Serum or Plasma by calculationon 01-20-2021 Cholesterol in VLDL [Mass/Vol] 15 mg/dL [facility] Estimated glomerular filtrat ion rate (GFR) non- Americanon 01-20-2021 GFR/1.73 sq M predicted among non-blacks MDRD (S/P/Bld) [Vol rate/Area] mL/min/{1.73_m2} [facility] Metabolic Panelon 01-20-2021 Glucose [Mass/Vol] 85 mg/dL 70-100 [facility] Otheron 01-20-2021 GFR/1.73 sq M.predicted MDRD (S/P/Bld) [Vol rate/Area] mL/min/{1.73_m2} [facility] Comment on above: GFR estimated refere nce range: According to KDOQI guidelines, <60 ml/min/1.73m2 is sufficient to diagnose a patient with chronic kidney disease. Pharmacy Creatinine Clearance (Chem N/A [facility] Protein [Mass/volume] in Ser um or Plasmaon 01-20-2021 Protein [Mass/Vol] 6.6 g/dL 6.1-7.9 [facility] Serum globulin measurement b y calculation (mass/volume)on 01-20-2021 Globulin (S) [Mass/Vol] 2.6 g/dL [facility] Serum or plasma alanine morton otransferase measurement without P-5'-P (enzymatic activion 01-20-2021 ALT No additional P-5'-P [Catalytic activity/Vol] 14 U/L 10-60 [facility] Serum or plasma albumin/glob ulin mass ratioon 01-20-2021 Albumin/Globulin [Mass ratio] 1.5 {ratio} [facility] Serum or plasma alkaline marek sphatase measurement (enzymatic activity/volume)on 01-20-2021 ALP [Catalytic activity/Vol] 53 U/L 32-92 [facility] Serum or plasma aspartate am inotransferase measurement (enzymatic activity/volume)on 01-20-2021 AST [Catalytic activity/Vol] 18 U/L 10-42 [facility] Serum or plasma calcium emily urement (mass/volume)on 01-20-2021 Calcium [Mass/Vol] 9.0 mg/dL 8.2-10.2 [facility] Serum or plasma chloride angélica surement (moles/volume)on 01-20-2021 Chloride [Moles/Vol] 101 mmol/L 95-114 [facility] Serum or plasma creatinine m easurement with calculation of estimated glomerular filtron 01-20-2021 Creatinine [Mass/Vol] 0.60 mg/dL 0.44-1.03 [facility] Serum or plasma high density lipoprotein (HDL) cholesterol measurementon 01-20-2021 Cholesterol in HDL [Mass/Vol] 53 mg/dL 35-85 [facility] Comment on above: HDL CHOL ATP-III CLA SSIFICATION Cardiovascular RiskHDL > or equal to 60 mg/dL LOWHDL < 40 mg/dL HIGH Serum or plasma potassium me asurement (moles/volume)on 01-20-2021 Potassium [Moles/Vol] 3.7 mmol/L 3.5-5.[address] [facility] Serum or plasma sodium measu rement (moles/volume)on 01-20-2021 Sodium [Moles/Vol] 135 mmol/L 136-146 [facility] Serum or plasma total biliru bin measurement (mass/volume)on 01-20-2021 Bilirubin [Mass/Vol] 0.7 mg/dL 0.3-1.2 [facility] Serum or plasma total carbon dioxide measurement (moles/volume)on 01-20-2021 CO2 [Moles/Vol] 24.1 mmol/L 22.0-30.0 [facility] Serum or plasma total choles terol/high density lipoprotein (HDL) cholesterol mass gladys 01-20-2021 Cholesterol.total/Yoana sterol in HDL [Mass ratio] 3.2 {ratio} [facility] Serum or plasma urea nitroge n measurement (mass/volume)on 01-20-2021 Urea nitrogen [Mass/Vol] 9 mg/dL 08-20 [facility] Triglyceride [Mass/volume] i n Serum or Plasmaon 01-20-2021 Triglyceride [Mass/Vol] 75 mg/dL 35-149 [facility] Comment on above: TRIG ATP III CLASSIF ICATIONTRIG less than 150 mg/dL NormalTRIG 150-199 mg/dL Borderline highTRIG 200-500 mg/dL High TRIG greater than 500 mg/dL Very highStandard traceable to the Center for Disease Conrtrol and Prevention (CDC) test method. Vital Signs Date Time Vital Sign Value Performing Clinician Facility 02-27-2025 17:03-040 Body mass index (BMI) [Ratio] 26.29 kg/m2 Rubio Ellis NP Work Phone: [facility] 02-27-2025 17:03-0400 Body temperature 98.2 [degF] Rubio Ellis NP Work Phone: [facility] 02-27-2025 17:03-0400 Body weight 80.74 kg Rubio Ellis MAILER Work Phone: [facility] 02-27-2025 17:03-0400 Diastolic blood pressure 76 mm[Hg] Rubio Ellis MAILER Work Phone: [facility] 02-27-2025 17:03-0400 Heart rate 78 /min Rubio Ellis MAILER Work Phone: [facility] 02-27-2025 17:03-0400 SaO2% (BldA) [Mass fraction] 99 % Rubio Ellis MAILER Work Phone: [facility] 02-27-2025 17:03-0400 Systolic blood pressure 118 mm[Hg] Rubio Ellis MAILER Work Phone: [facility] 08-03-2024 12:28-0400 Body height 175.26 cm [facility] 08-03-2024 12:28-0400 Body mass index (BMI) [Ratio] 24.3 kg/m2 [facility] 08-03-2024 12:28-0400 Body temperature 98.2 [degF] [facility] 08-03-2024 12:28-0400 Body weight 74.84 kg [facility] 08-03-2024 12:28-0400 Diastolic blood pressure 99 mm[Hg] [facility] 08-03-2024 12:28-0400 Heart rate 83 /min [facility] 08-03-2024 12:28-0400 SaO2% (BldA) [Mass fraction] 100 % [facility] 08-03-2024 12:28-0400 Systolic blood pressure 139 mm[Hg] [facility] 07-18-2024 11:46-0400 Body weight 74.84 kg Ly Steel MD Work Phone: [facility] 07-18-2024 11:46-0400 Diastolic blood pressure 87 mm[Hg] Ly Steel MD Work Phone: [facility] 07-18-2024 11:46-0400 Heart rate 78 /min Ly Steel MD Work Phone: [facility] 07-18-2024 11:46-0400 Systolic blood pressure 135 mm[Hg] Ly Steel MD Work Phone: [facility] 06-07-2024 16:00-0400 Body weight 74.84 kg Ly Steel MD Work Phone: [facility] 06-07-2024 16:00-0400 Diastolic blood pressure 81 mm[Hg] yL Steel MD Work Phone: [facility] 06-07-2024 16:00-0400 Heart rate 71 /min Ly Steel MD Work Phone: [facility] 06-07-2024 16:00-0400 Systolic blood pressure 126 mm[Hg] Ly Steel MD Work Phone: [facility] 04-17-2024 13:44-0400 Blood Pressure Location Divya Orzech [facility] 04-17-2024 13:44-0400 Body temperature 98.06 [degF] Divya Orzech [facility] 04-17-2024 13:44-0400 Diastolic blood pressure 82 mm[Hg] Divya Orzech [facility] 04-17-2024 13:44-0400 Heart rate 76 /min Divya Orzech [facility] 04-17-2024 13:44-0400 Respiratory rate 16 /min Divya Orzech [facility] 04-17-2024 13:44-0400 Systolic blood pressure 134 mm[Hg] Divya Orzech [facility] 02-24-2023 18:15-0400 Body height 175.26 cm Maritza Francisco Other [facility] Other 02-24-2023 18:15-0400 Body mass index (BMI) [Ratio] 22.59 kg/m2 Maritza Singh Other [facility] Other 02-24-2023 18:15-0400 Body temperature 98.2 [degF] Maritza Singh Other [facility] Other 02-24-2023 18:15-0400 Body weight 69.4 kg Maritza Sinhg Other [facility] Other 02-24-2023 18:15-0400 Diastolic blood pressure 90 mm[Hg] Maritza Singh Other [facility] Other 02-24-2023 18:15-0400 Respiratory rate 18 /min Maritza Francisco Other [facility] Other 02-24-2023 18:15-0400 SaO2% (BldA) [Mass fraction] 99 % Maritza Singh Other [facility] Other 02-24-2023 18:15-0400 Systolic blood pressure 148 mm[Hg] Maritza Singh Other [facility] Other Encounters Encounter Date Encounter Type Care Provider Facility Start: 04-26-2025 End: 04-28-2025 ambulatory Ly Steel MD Work Phone: Urology Start: 04-26-2025 End: 04-28-2025 Follow-up encounter Ly Steel MD Work Phone: Urology Comment on above: Follow up appointmen t Start: 02-27-2025 End: 02-27-2025 Office outpatient visit 25 minutes Rubio Ellis MAILER Work Phone: [facility] Comment on above: Acute rhinosinusitis (Primary Dx); Non-recurrent acute serous otitis media of both ears; Acute swimmer's ear of both sides Start: 02-27-2025 End: 02-27-2025 ambulatory RUBIO ELLIS Not Available Start: 12-26-2024 End: 12-26-2024 Bamboo flowsheet [facility] Work Phone: [facility] Start: 12-26-2024 End: 12-26-2024 Bamboo flowsheet Claudine [facility] Work Phone: [facility] Start: 12-26-2024 End: 12-26-2024 ambulatory CLAUDINE [facility] Not Available Start: 12-26-2024 End: 12-26-2024 Office outpatient new 30 minutes [facility] Work Phone: [facility] Comment on above: Melanocytic nevus of left upper extremity (Primary Dx); Capillary angioma; Spider angioma; Epidermal inclusion cyst Start: 09-12-2024 End: 09-12-2024 ambulatory NON STAFF [facility] Work Phone: Start: 09-12-2024 End: 09-12-2024 Patient encounter procedure [facility] [address] Work Phone: Start: 08-03-2024 End: 08-03-2024 Departed Referred [facility] 250 Start: 08-03-2024 End: 08-03-2024 ambulatory NON STAFF [facility] Work Phone: Start: 08-03-2024 End: 08-03-2024 Patient encounter procedure [facility] Work Phone: Start: 07-18-2024 End: 07-18-2024 ambulatory LY STEEL Facility:[facility] Start: 07-18-2024 End: 07-18-2024 Patient encounter procedure Ly Steel MD Work Phone: Urology Comment on above: Recurrent UTI (Prima ry Dx) Start: 06-29-2024 ambulatory Ly Steel MD Work Phone: Urology Start: 06-28-2024 End: 06-28-2024 ambulatory NON STAFF [facility] Work Phone: Start: 06-28-2024 End: 06-28-2024 Departed Referred [facility] [place] Start: 06-27-2024 End: 06-27-2024 ambulatory LY STEEL Facility:[facility] Start: 06-27-2024 End: 06-27-2024 Subsequent hospital visit by physician [facility] Vanda Work Phone: Radiology Comment on above: Recurrent UTI [N39.0 ] Start: 06-11-2024 Chart abstracting Ly Newberry Work Phone: Urology Start: 06-07-2024 End: 06-07-2024 ambulatory LY STEEL Facility:[facility] Start: 06-07-2024 End: 06-07-2024 Patient encounter procedure Ly Steel MD Work Phone: Urology Comment on above: Recurrent UTI (Prima ry Dx); Urinary frequency; Urinary tract infection without hematuria, site unspecified Start: 05-23-2024 End: 05-23-2024 ambulatory SHEILA HERNANDEZ Not Available Start: 04-17-2024 End: 04-18-2024 ambulatory Divya X Orzech Facility: [facility] Start: 04-17-2024 End: 04-17-2024 Patient encounter procedure Divya X Orzech [facility] Start: 02-24-2024 ambulatory DANYELLE NOLEN Facility : [place] Start: 09-20-2023 End: 09-20-2023 ambulatory NON STAFF [facility] Work Phone: Start: 09-20-2023 End: 10-24-2023 Departed Referred [facility]-Employee Benefit Screening Start: 02-24-2023 End: 02-24-2023 Departed Referred [facility] [place] Work Phone: Start: 02-24-2023 End: 02-24-2023 ambulatory NON STAFF [facility] Work Phone: Start: 02-24-2023 Office outpatient vi sit 15 minutes Maritza Singh [facility] Start: 01-20-2021 End: 01-20-2021 Departed Referred Charity Fenton [facility] [address] Procedures Date Procedure Procedure Detail Performing Clinician Start: 08-03-2024 Bacteria identified in Urine by Culture None (qualifier value) Rere Steven Plan of Treatment Date Care Activity Detail Author Start: 07-15-2030 Urine microalbumin profile DTaP,Tdap,Td Vaccine (8 - Td or Tdap) [facility] Start: 07-29-2025 Influenza vaccination Influenz a Vaccine (Season Ended) [facility] Start: 06-06-2025 End: 06-06-2025 Patient encounter procedure 06/06/2025 10:15 AM EDT Office Visit [facility] [address] [place] [address] Sheila Hernandez DO [address] [place] [address] [facility] Start: 05-03-2025 End: 05-03-2025 Patient encounter procedure 05/03/2025 3:00 PM EDT Office Visit Urology [address] [place] [address] Ly Steel MD [address] [place] [address] UTI FOLLOW UP Urology Comment on above: UTI FOLLOW UP Start: 04-28-2025 End: 07-28-2025 Bacteria identified in Urine by Culture BACTERIAL CULTURE, URINE Microbiology Routine Recurrent UTI Expected: 04/28/2025 (Approximate), Expires: 07/28/2025 [facility] Comment on above: Expected: 04/28/2025 (Approximate), Expires: 07/28/2025 Start: 04-28-2025 End: 07-28-2025 Urinalysis complete panel - Urine URINALYSIS, WITH MICROSCOPIC Lab Routine Recurrent UTI Expected: 04/28/2025 (Approximate), Expires: 07/28/2025 [facility] Work Phone: Comment on above: Expected: 04/28/2025 (Approximate), Expires: 07/28/2025 Start: 01-18-2025 End: 04-19-2025 Bacteria identified in Urine by Culture URINE CULTURE Microbiology Routine Recurrent UTI Expected: 01/18/2025 (Approximate), Expires: 04/19/2025 [facility] Comment on above: Expected: 01/18/2025 (Approximate), Expires: 04/19/2025 Start: 01-18-2025 End: 04-19-2025 Urinalysis complete panel - Urine URINALYSIS, WITH MICROSCOPIC Lab Routine Recurrent UTI Expected: 01/18/2025 (Approximate), Expires: 04/19/2025 [facility] Work Phone: Comment on above: Expected: 01/18/2025 (Approximate), Expires: 04/19/2025 Start: 01-18-2025 End: 01-18-2025 Patient encounter procedure 01/18/2025 11:20 AM EST Office Visit Urology [address], [place] [id number] Ly Steel MD [address] [place] [address] weight check. Tuesday. Urology Comment on above: weight check. Tuesday . Start: 08-03-2024 Bacteria identified in Urine by Culture [facility] Start: 07-29-2024 Covid-19 Vaccine ( season) Covid-19 Vaccine ( season) [facility] Start: 07-29-2024 Influenza vaccination Influenza Vacc ine (#1) [facility] Start: 07-18-2024 End: 07-18-2024 Patient encounter procedure 07/18/2024 11:00 AM EDT Office Visit Urology [address] [place] [address] Ly Steel MD [address] [place] [address] [facility] Comment on above: [facility] Start: 06-27-2024 End: 06-27-2024 Patient encounter procedure 06/27/2024 11:20 AM EDT Appointment Radiology [address] [place] [address] CT UROGRAM WO/W IVCON Radiology Comment on above: CT UROGRAM WO/W IVCO N Start: 06-07-2024 End: 09-06-2024 Bacteria identified in Urine by Culture URINE CULTURE Microbiology Routine Recurrent UTI Urinary frequency Expected: 06/07/2024 (Approximate), Expires: 09/06/2024 [facility] Comment on above: Expected: 06/07/2024 (Approximate), Expires: 09/06/2024 Start: 06-07-2024 End: 07-08-2025 CT Kidney WO and W contrast IV CT UROGRAM WO/W IVCON Radiology Routine Recurrent UTI Urinary frequency Urinary tract infection without hematuria, site unspecified Expected: 06/07/2024 (Approximate), Expires: 07/08/2025 [facility] Comment on above: Expected: 06/07/2024 (Approximate), Expires: 07/08/2025 Start: 06-07-2024 End: 09-06-2024 Urinalysis complete panel - Urine URINALYSIS, WITH MICROSCOPIC Lab Routine Recurrent UTI Urinary frequency Expected: 06/07/2024 (Approximate), Expires: 09/06/2024 [facility] Work Phone: Comment on above: Expected: 06/07/2024 (Approximate), Expires: 09/06/2024 Start: 11-28-2023 Behavioral Health Screening Behavioral Health Screening [facility] Start: 09-20-2023 [facility] Start: 07-29-2023 Covid-19 Vaccine () Covid-19 Vaccine () [facility] Start: 02-24-2023 Bacteria identified in Urine by Culture Urine Culture [facility] Start: 2020 Screening for malign ant neoplasm of cervix Cervical Cancer Screening [facility] Start: 2017 Anxiety Screening Anxiety Screening [facility] Start: 2017 Depression Screening Depression Scre ening [facility] Start: 2017 Hepatitis C screening Hepatitis C Sc sera [facility] Start: 2017 HIV screening HIV Screening [facility] Start: 2015 Meningococcal B Vacc ine: Consider Based On Risk (1 of 2 - Patient Seeks Protection) Meningococcal B Vaccine: Consider Based On Risk (1 of 2 - Patient Seeks Protection) [facility] Start: 2013 Peds To Adult Transi tion Annual Assessment Peds To Adult Transition Annual Assessment [facility] Start: 2011 Peds To Adult Transi tion Initial Discussion Peds To Adult Transition Initial Discussion [facility] CT Kidney WO and W contrast IV CT UROGRAM WO/W IVCON Radiology Routine Recurrent UTI Urinary frequency Urinary tract infection without hematuria, site unspecified 06/27/2024 11:53 AM EDT [facility] Work Phone: Immunizations Immunization Date Immunization Notes Care Provider Karen [facility] 09-15-2023 influenza virus vaccine, unspecified formulation [facility] 11-06-2021 SARS-CoV-2 (COVID-19 ) mRNA-1273 vaccine [facility] Comment on above: Result Comment: 2023: TPVALL 01-08-2021 COVID-19 mRNA-1273 (Moderna) [facility] 12-11-2020 COVID-19 mRNA-1273 (Moderna) [facility] 07-15-2020 tetanus toxoid, reduced diphtheria toxoid, and acellular pertussis vaccine, adsorbed [facility] 07-29-2019 influenza virus vaccine, live, attenuated, for intranasal use [facility] 10-18-2017 influenza virus vaccine, unspecified formulation Divya Orzech [facility] 10-18-2017 meningococcal ACWY vaccine, unspecified formulation Divya Orzech [facility] 09-18-2016 influenza virus vaccine, unspecified formulation Divya Orzech [facility] 09-20-2015 influenza virus vaccine, unspecified formulation Divya Orzech [facility] 07-28-2013 HPV, unspecified formulation Divay Orzech [facility] 07-28-2013 influenza virus vaccine, unspecified formulation Divya Orzech [facility] 11-29-2012 HPV, unspecified formulation Divya Orzech [facility] 10-14-2012 influenza virus vaccine, unspecified formulation Divya Orzech [facility] 11-25-2011 varicella virus vaccine Divya Orzech [facility] 08-14-2011 influenza virus vaccine, unspecified formulation Divya Orzech [facility] 11-25-2010 meningococcal ACWY vaccine, unspecified formulation Divya Orzech [facility] 11-25-2010 tetanus toxoid, reduced diphtheria toxoid, and acellular pertussis vaccine, adsorbed Divya Orzech [facility] 09-19-2010 influenza virus vaccine, unspecified formulation Divya Orzech [facility] 08-14-2009 influenza virus vaccine, unspecified formulation Divya Orzech [facility] 07-14-2005 diphtheria, tetanus toxoids and acellular pertussis vaccine Divya Orzech [facility] 07-14-2005 measles, mumps and rubella virus vaccine Divya Orzech [facility] 07-14-2005 poliovirus vaccine, unspecified formulation Divya Orzech [facility] 09-18-2004 influenza virus vaccine, unspecified formulation Divya Orzech [facility] 08-18-2004 influenza virus vaccine, unspecified formulation Divya Orzech [facility] 08-22-2003 hepatitis B vaccine, adult dosage Divya Orzech [facility] 04-10-2001 diphtheria, tetanus toxoids and acellular pertussis vaccine Divya Orzech [facility] 04-10-2001 haemophilus influenz ae type b vaccine, HbOC conjugate Divya OrzeNomi [facility] 04-10-2001 poliovirus vaccine, unspecified formulation Divya OrzeNomi [facility] 02-06-2001 measles, mumps and rubella virus vaccine Divya Orzech [facility] 11-07-2000 varicella virus vaccine Divya Orzech [facility] 05-16-2000 hepatitis B vaccine, adult dosage Divya Orzech [facility] 04-18-2000 diphtheria, tetanus toxoids and acellular pertussis vaccine Divya Orzech [facility] 04-18-2000 haemophilus influenz ae type b vaccine, HbOC conjugate [employer] 04-18-2000 hepatitis B vaccine, adult dosage [employer] 02-15-2000 diphtheria, tetanus toxoids and acellular pertussis vaccine [email or web address] [facility] 02-15-2000 haemophilus influenz ae type b vaccine, HbOC conjugate [employer] 02-15-2000 poliovirus vaccine, unspecified formulation [employer] 1999 diphtheria, tetanus toxoids and acellular pertussis vaccine [email or web address] [facility] 1999 haemophilus influenz ae type b vaccine, HbOC conjugate [employer] [facility] 1999 poliovirus vaccine, unspecified formulation [employer] NEGATED: Highlighted row has not occurred!06-13-2019 meningococcal B vaccine, recombinant, OMV, adjuvanted [facility] Comment on above: Result Note: Patient is waiting on receiving this immunization Payers Date Payer Category Payer Self-pay [id number] 2023 Private Health Insurance [id number] 2023 Unknown MMO MMO [employer] PPO [id number] 2023-Present [phone] [address] [place] [address] PPO [id number] 2019 Unknown [id number] 1999 Unknown [id number] 1999 Unknown [id number] 1999 Unknown [id number] 1999 Unknown [id number] Unknown [id number] Unknown [id number] Unknown [id number] Social History Date Type Detail Facility Tobacco smoking stat [facility] Unknown if ever smoked [facility] Start: 2000 Sex Assigned At Female F [facility] Start: 06-07-2024 End: 02-27-2025 Sex Assigned At [facility] Start: 01-23-2024 End: 04-17-2024 Tobacco smoking status Never smoked tobacco (finding) [facility] Tobacco smoking status Never [facility] unknown [facility] Start: 06-07-2024 End: 02-27-2025 History of Social function [facility] Start: 2000 Sex Assigned At Not on file [facility] Start: 01-23-2024 Tobacco use and exposure Smokeless tobacco non-user [facility] Start: 05-23-2024 End: 02-27-2025 Alcoholic beverage intake Current drinker of alcohol (finding) [facility] Start: 04-26-2023 Alcohol Comment Caffeine intak e: 1-2 cups per day of coffee [facility] Goals Date Patient Goal Desired Activity /State Functional Status Date Assessment Result Facility 04-17-2024 Functional Status N/A [facility] Clinical Notes 02-24-2023 to 04-28-2025 Telephone Encounter - Ly Steel MD - 04/28/2025 11:42 AM EDTTelephone Encounter - Ly Steel MD - 04/28/2025 11:42 AM Elizabet Ellis NP - 02/27/2025 5:05 PM EDTPatient Instructions Note Date & Type Note Facility 04-28-2025 Telephone encounter Note UA and culture ordered please notify patient proceed accordingly She wants it faxed to Josephine Boyer ( I would also like to give it done at my local hospital if the new order can be faxed over to the [facility] or emailed to me to bring to them. Thank you my phone number is [phone] ) [facility] 04-28-2025 Miscellaneous Notes UA and culture ordered please notify patient proceed accordingly She wants it faxed to [facility] ( I would also like to give it done at my local hospital if the new order can be faxed over to the [facility] or emailed to me to bring to them. Thank you my phone number is [phone] ) documented in this encounter [facility] 02-27-2025 History of Present illness Narrative [address] , [address] [facility], [address] P: [phone] F: [phone] HPI Historian of HPI: patient Shandra Henriquez is a 24 y.o. female who presents today to the Urgent Care with the following complaints and denials which have been present for 1 month(s) Pt states that she went on a vacation about a month ago. Pt states that when the plane descended her ears felt clogged. Pt has tried OTC medications and nothing has helped. Pt states that before she went on her flight, she had a head cold and was not sure if that has anything to do with it, C/O Denies Symptom Comments [] [x] Runny Nose [] [x] Difficulty Swallowing [] [x] Sore Throat [] [x] Cough [x] [] Ear Pain Bilateral ears clogged [] [x] Fever [] [x] Chills [] [x] Nasal Congestion [] [x] Myalgia [] [x] Sinus Pain [] [x] Sinus Pressure Additional Comments: pt has not taken any OTC medications ROS A complete system ROS was performed and negative aside from the pertinent positives noted in the HPI and PE. IH Testing: PHYSICAL EXAM EXAMINATION General Examination: GENERAL EXAMINATION: alert, oriented, normal affect, well-appearing, in no acute distress, well developed, well nourished. HEAD: Tenderness over the frontal sinus EYES: sclera non-icteric. EARS: both TM's bulging with A/F levels noted, auditory canals with mild inflammation NOSE: congested ORAL CAVITY: mucosa moist no lesions. THROAT: uvula midline NECK/THYROID: FROM LYMPH NODES: no cervical adenopathy. HEART: no murmurs, regular rate and rhythm, S1, S2 normal. LUNGS: clear to auscultation bilaterally. EXTREMITIES: no edema, no cyanosis. NEUROLOGIC: alert and oriented. PSYCH: alert, oriented, cognitive function intact, cooperative with exam. TREATMENT PLAN 1. Acute rhinosinusitis (Primary) Diagnosis and treatment discussed with patient. Immediate eval if new, worsening sx otherwise f/u with PCP if sx not resolved in 7 days, sooner if not improving over next 3-4 days. To ED for trouble swallowing secretions, shortness of breath, or other red flag symptoms. Advised Pt on supportive therapies, including using a vaporizer/humidifer/steam from hot showers, lots of fluids as tolerated, rest, avoidance of second-hand smoke, frequent hand-washing w/ soap and water, and OTC acetaminophen or ibuprofen as directed prn for pain control - cefdinir (Omnicef) 300 MG capsule; Take 1 capsule (300 mg) by mouth every 12 (twelve) hours for 10 days Dispense: 20 capsule; Refill: 0 2. Non-recurrent acute serous otitis media of both ears Diagnosis and treatment discussed. Start medrol dospak to decrease eustachian tube inflammation. Take with food. No nsaids while taking dospak. See above. - methylPREDNISolone (Medrol Dospak) 4 MG tablets; Follow schedule on package instructions Dispense: 21 tablet; Refill: 0 3. Acute swimmer's ear of both sides Diagnosis and treatment discussed. Keep water out of ear canals for the duration of treatment. See above for follow-up. - ciprofloxacin-dexAMETHasone (CiproDEX) otic suspension; Administer 4 drops into affected ear(s) in the morning and 4 drops before bedtime. Do all this for 7 days. Dispense: 7.5 mL; Refill: 0 documented in this encounter [facility] 12-26-2024 History of Present illness Narrative Lesions: Location: left arm x 2 Duration: years Quality: denies pain, denies itch, denies bleeding Modifying factors: none Associated symptoms: change in shape Treatments: none Lesion # 2: Location: nose x 2 Duration: years Quality: denies pain, denies itch, denies bleeding Modifying factors: none Associated symptoms: red Treatments: none Lesion # 3: Location: back Duration: months Quality: denies pain, denies itch, denies bleeding Modifying factors: none Associated symptoms: enlarged Treatments: none New patient All pertinent medical history, medications, and allergies were reviewed. General Exam: alert, oriented to person, place, and time, normal affect, well appearing Unaccompanied A focused exam completed based on patient reported problems, see below: 1. Melanocytic nevus of left upper extremity (2) Left Upper Arm - Posterior (2) Scattered benign appearing, regular brown to light brown melanocytic papules and macules with similar morphology Counseled regarding these benign growths. Rarely, a nevus can develop into malignant melanoma, so any changing nevi should be promptly re-evaluated. 2. Capillary angioma Right Nasal Sidewall Scattered geiger-red papule(s). The patient was informed that angiomas are benign growths on the the skin. No treatment is necessary, but could be removed. Patient elected for removal, consents were signed. Electrodesiccation Diagnosis: Hemangioma Indication: cosmetic Location: Right nasal sidewall Consent: The risks of the procedure were discussed with the patient, including, but not limited to risks of scarring, incomplete removal and recurrence. Verbal consent was obtained from the patient. Method: The lesion was removed by electrodesiccation at a low power setting Post-procedure: Post-procedure instructions were reviewed with the patient. 3. Spider angioma Right Nasal Sidewall Scattered red/purple papule Observation. 4. Epidermal inclusion cyst Mid Back Subcutaneous, mobile nodule WITHOUT central punctum. Patient was counseled regarding cysts. Although benign, cysts often slowly enlarge and can occasionally become inflamed. Discussed the only way to definitively diagnose the lesion would be to have it removed and tested. Discussed treatment options including observation vs. excision. Patient elected for observation. Notify office if lesion is enlarging or becomes symptomatic. Next Visit: prn for any new/changing lesions documented in this encounter [facility] 07-18-2024 Instructions Marlyn Rome - 07/18/2024 11:56 AM EDT UA + Culture in 6 months OV w 1 week to follow documented in this encounter [facility] 07-18-2024 Nurse Note PRE PROCEDURE NURSE ASSESSMENT Patient ID with two(2)identifiers verified by: Patricia Lerma RN Procedure Indication: Cystoscopy July 18, 2024, Time In: 1100 Latex Allergy: no Allergies reviewed and updated. Yes Pre-Procedure Vital Signs: BP 135/87 Pulse 78 Wt 74.8 kg (165 lb) LMP 05/26/2024 Heart valve replacement: No Joint replacement: No Back Office UA otained: not applicable Pre-Procedure Antibiotics: Cipro 500 mg orally, given during visit Current pain intensity is 0 on a 0-10 pain scale. Patient Prep: Betadine Scrub to perineum and placement of Sterile Drape. COMPLETED Anesthetic Given:6 cc 2% Lidocaine Jelly Patricia Lerma RN UNIVERSAL PROTOCOL / SAFETY CHECKLIST Procedure to be performed: Cystoscopy Sign in Communication: Completed Time Out: Team Confirms the Correct Patient, Correct Procedure, Correct Site and Site Marking, Correct Position (if applicable) Sign Out Discussion: Completed Patricia Lerma RN POST PROCEDURE NURSE ASSESSMENT Procedure/Indication: Cystoscopy Instruction sheet given and reviewed and patient verbalizes understanding: yes Current pain intensity is 0 on a 0-10 pain scale. Patricia Lerma RN AMBULATORY PATIENT EDUCATION THE FOLLOWING WAS EVALUATED Motivation To Learn: Eager Family/Significant Other Support: None - Unavailable/disinterested Cognitive Ability: Alert/Oriented Method of Instruction: Individual instruction The Following Influencing Factors Were Barriers To This Education Session: None The Following Physical Limitations Were Barriers To This Education Session: None Instruction Provided To: Patient Field Worker Present: not applicable Discipline: Nursing Learning Topic: SURVIVAL SKILLS: Symptom Management Patient Evaluation: Verbalizes understanding: Yes Supplemental Material Given: None Instructed By Patricia Lerma RN In Department Urology . UNIVERSAL PROTOCOL / SAFETY CHECKLIST Procedure to be Performed: cystoscopy Sign In: A Moment of CARE was completed. Personnel directly involved with the procedure wore the appropriate PPE (Personal Protective Equipment). No special equipment needed. Patient/Surrogate Stated/Verified: PATIENT VERIFIED(optional for EMERGENT procedures): Patient name, Date of , Relevant allergies, and The intended procedure Time Out Communication: Intended patient and procedure match the source documents. Consent documented and matches the intended procedure. Relevant labs, photos, and/or imaging studies have been reviewed. Correct side/site marked and visible. Medications required for procedure verified. Fire risk assessed and interventions discussed. No implant(s) inserted. Sign Out: SIGN OUT (optional for EMERGENT procedures): No specimen collected. All instruments, equipment, possible retained foreign bodies accounted for. Post-procedure follow-up management communicated and Plan of Care Visit completed when applicable. Patricia Lerma RN [facility] 07-18-2024 Nurse Note PRE PROCEDURE NURSE ASSESSMENT Patient ID with two(2)identifiers verified by: Patricia Lerma RN Procedure Indication: Cystoscopy July 18, 2024, Time In: 1100 Latex Allergy: no Allergies reviewed and updated. Yes Pre-Procedure Vital Signs: BP 135/87 Pulse 78 Wt 74.8 kg (165 lb) LMP 05/26/2024 Heart valve replacement: No Joint replacement: No Back Office UA otained: not applicable Pre-Procedure Antibiotics: Cipro 500 mg orally, given during visit Current pain intensity is 0 on a 0-10 pain scale. Patient Prep: Betadine Scrub to perineum and placement of Sterile Drape. COMPLETED Anesthetic Given:6 cc 2% Lidocaine Jelly Patricia Lerma RN UNIVERSAL PROTOCOL / SAFETY CHECKLIST Procedure to be performed: Cystoscopy Sign in Communication: Completed Time Out: Team Confirms the Correct Patient, Correct Procedure, Correct Site and Site Marking, Correct Position (if applicable) Sign Out Discussion: Completed Patricia Lerma RN POST PROCEDURE NURSE ASSESSMENT Procedure/Indication: Cystoscopy Instruction sheet given and reviewed and patient verbalizes understanding: yes Current pain intensity is 0 on a 0-10 pain scale. Patricia Lerma RN AMBULATORY PATIENT EDUCATION THE FOLLOWING WAS EVALUATED Motivation To Learn: Eager Family/Significant Other Support: None - Unavailable/disinterested Cognitive Ability: Alert/Oriented Method of Instruction: Individual instruction The Following Influencing Factors Were Barriers To This Education Session: None The Following Physical Limitations Were Barriers To This Education Session: None Instruction Provided To: Patient Field Worker Present: not applicable Discipline: Nursing Learning Topic: SURVIVAL SKILLS: Symptom Management Patient Evaluation: Verbalizes understanding: Yes Supplemental Material Given: None Instructed By Patricia Lerma RN In Department Urology . UNIVERSAL PROTOCOL / SAFETY CHECKLIST Procedure to be Performed: cystoscopy Sign In: A Moment of CARE was completed. Personnel directly involved with the procedure wore the appropriate PPE (Personal Protective Equipment). No special equipment needed. Patient/Surrogate Stated/Verified: PATIENT VERIFIED(optional for EMERGENT procedures): Patient name, Date of , Relevant allergies, and The intended procedure Time Out Communication: Intended patient and procedure match the source documents. Consent documented and matches the intended procedure. Relevant labs, photos, and/or imaging studies have been reviewed. Correct side/site marked and visible. Medications required for procedure verified. Fire risk assessed and interventions discussed. No implant(s) inserted. Sign Out: SIGN OUT (optional for EMERGENT procedures): No specimen collected. All instruments, equipment, possible retained foreign bodies accounted for. Post-procedure follow-up management communicated and Plan of Care Visit completed when applicable. Patricia Lerma RN documented in this encounter [facility] 07-18-2024 Note HNO ID: [id number] Author: ?, ?, ? Service: ? Author Type: ? Type: Procedures Filed: 07/18/2024 12:16 Note Text: CYSTOSCOPY Indications: Cysto 07-18-24 Recurrent UTIs with frequency and feeling of pressure. UA = -ve culture = -ve CTU 06-27-24 = -ve ANESTHESIA: 2% LOCAL XYLOCAIN JELLY. PATIENT WAS PLACED IN: Lithotomy GENETALIA PREPED WITH BETADINE AND DRAPED IN STERILE MANNER. CYSTOSCOPY WAS PERFORMED WITH: FLEXIBLE FIBEROPTIC CYSTOSCOPE 30 DEGREE LENSES FINDINGS: COTTON SWAB TEST: NOT APPLICABLE URETHAL MEATUS: NORMAL BLADDER NECK: CLOSED URETHAL DILIATION: No PVRV: SMALL STRESS TEST: NOT APPLICABLE CYSTOCELE: NO RECTOCELE: No PV EXAM: DEFERRED BLADDER: INFLAMMED: No TRABECULATIONS: No DIVERTICULAE: No STONES: No NORMAL URETERIC ORFICES: Yes NORMAL TRIGONE: Yes TUMOR: no COMPLICATIONS: No DIAGNOSIS: Normal cystoscopic findings. PLAN: DISCUSSED FINDINGS WITH PATIENT Recurrent UTI: P= UA + Culture in 6 months OV 1 week to follow By signing my name below, IMarlyn, attest that this documentation has been prepared under the direction and in the presence of Dr. Steel. Zaira Dueñasibe Provider Attestation: Ly Bonilla M.D., personally performed the services described in this documentation. All medical record entries made by the scribe were at my direction and in my presence. I have reviewed the chart and discharge instructions (if applicable) and agree that the record reflects my personal performance and is accurate and complete. Ly Steel M.D. [facility] 07-18-2024 Procedure note Procedure(s): CYSTOSCOPY Pre-Procedure Diagnose(s): Recurrent UTI Post-Procedure Diagnose(s): Recurrent UTI CYSTOSCOPY Indications: Cysto 07-18-24 Recurrent UTIs with frequency and feeling of pressure. UA = -ve culture = -ve CTU 06-27-24 = -ve ANESTHESIA: 2% LOCAL XYLOCAIN JELLY. PATIENT WAS PLACED IN: Lithotomy GENETALIA PREPED WITH BETADINE AND DRAPED IN STERILE MANNER. CYSTOSCOPY WAS PERFORMED WITH: FLEXIBLE FIBEROPTIC CYSTOSCOPE 30 DEGREE LENSES FINDINGS: COTTON SWAB TEST: NOT APPLICABLE URETHAL MEATUS: NORMAL BLADDER NECK: CLOSED URETHAL DILIATION: No PVRV: SMALL STRESS TEST: NOT APPLICABLE CYSTOCELE: NO RECTOCELE: No PV EXAM: DEFERRED BLADDER: INFLAMMED: No TRABECULATIONS: No DIVERTICULAE: No STONES: No NORMAL URETERIC ORFICES: Yes NORMAL TRIGONE: Yes TUMOR: no COMPLICATIONS: No DIAGNOSIS: Normal cystoscopic findings. PLAN: DISCUSSED FINDINGS WITH PATIENT Recurrent UTI: P= UA + Culture in 6 months OV 1 week to follow By signing my name below, IMarlyn, attest [...] is accurate and complete. Ly Steel M.D. [facility] 07-18-2024 Procedure note Procedure(s): CYSTOSCOPY Pre-Procedure Diagnose(s): Recurrent UTI Post-Procedure Diagnose(s): Recurrent UTI CYSTOSCOPY Indications: Cysto 07-18-24 Recurrent UTIs with frequency and feeling of pressure. UA = -ve culture = -ve CTU 06-27-24 = -ve ANESTHESIA: 2% LOCAL XYLOCAIN JELLY. PATIENT WAS PLACED IN: Lithotomy GENETALIA PREPED WITH BETADINE AND DRAPED IN STERILE MANNER. CYSTOSCOPY WAS PERFORMED WITH: FLEXIBLE FIBEROPTIC CYSTOSCOPE 30 DEGREE LENSES FINDINGS: COTTON SWAB TEST: NOT APPLICABLE URETHAL MEATUS: NORMAL BLADDER NECK: CLOSED URETHAL DILIATION: No PVRV: SMALL STRESS TEST: NOT APPLICABLE CYSTOCELE: NO RECTOCELE: No PV EXAM: DEFERRED BLADDER: INFLAMMED: No TRABECULATIONS: No DIVERTICULAE: No STONES: No NORMAL URETERIC ORFICES: Yes NORMAL TRIGONE: Yes TUMOR: no COMPLICATIONS: No DIAGNOSIS: Normal cystoscopic findings. PLAN: DISCUSSED FINDINGS WITH PATIENT Recurrent UTI: P= UA + Culture in 6 months OV 1 week to follow By signing my name below, IMarlyn, attest [...] Ly Steel M.D. documented in this encounter [facility] 06-29-2024 Note HNO ID: [id number] Author: LY STEEL MD Service: ? Author Type: Physician Type: Progress Notes Filed: 06/29/2024 12:56 Note Text: URINALYSIS [facility] 06-27-24 = -VE [facility] 06-29-2024 History of Present illness Narrative URINALYSIS [facility] 06-27-24 = -VE documented in this encounter [facility] 06-27-2024 Note HNO ID: [id number] Author: CORWIN FISH RT(R) Service: ? Author Type: Technologist Type: Procedures Filed: 06/27/2024 11:38 Note Text: Radiology Service Progress Note DATE OF SERVICE: June 27, 2024 TIME: 11:38 AM PATIENT IDENTITY VERIFICATION COMPLETED USING TWO (2) STANDARD IDENTIFIERS: Name and Date of confirmed by patient verbally and Name and Date of confirmed by identification band. FALL SCREENING: Has the patient had 2 falls in the last year or 1 fall with injury or currently using an Ambulatory Assistive Device (Walker, Cane, Wheelchair, Crutches, etc.)? No PATIENT GENDER DATA: Female. status: : No status: NO. PATIENT RELEVANT IMPLANT DATA REVIEWED: Not Applicable PATIENT PRESENTS WITH AN IMPLANTABLE OR ATTACHED FIELD ARTILLERY CREWMEMBER: No ALLERGIES: Reviewed and unchanged CONTRAST ALLERGY: NO. EXAM: CT -CONTRAST INDUCED NEPHROPATHY RISK FACTORS: Not applicable CREATININE: No results found for: CREAT , EGFROTH , EGFRAA P.O.C.T. RESULTS: POC done: Yes, See Lab Tab June 27, 2024 TREATMENT: N/A PERIPHERAL IV DATA: Ambulatory: A peripheral IV was started in the Right antecubital site with a Angio cath: 22 gauge. RADIOLOGY DEPARTMENT: CT; Exam(s) Completed: Urogram SIGNATURE: RT Judson(R) PATIENT NAME: Shandra Bridges DATE: June 27, 2024 TIME: 11:38 AM [facility] 06-27-2024 Procedure note Radiology Service Progress Note DATE OF SERVICE: June 27, 2024 TIME: 11:38 AM PATIENT IDENTITY VERIFICATION COMPLETED USING TWO (2) STANDARD IDENTIFIERS: Name and Date of confirmed by patient verbally and Name and Date of confirmed by identification band. FALL SCREENING: Has the patient had 2 falls in the last year or 1 fall with injury or currently using an Ambulatory Assistive Device (Walker, Cane, Wheelchair, Crutches, etc.)? No PATIENT GENDER DATA: Female. status: : No status: NO. PATIENT RELEVANT IMPLANT DATA REVIEWED: Not Applicable PATIENT PRESENTS WITH AN IMPLANTABLE OR ATTACHED FIELD ARTILLERY CREWMEMBER: No ALLERGIES: Reviewed and unchanged CONTRAST ALLERGY: NO. EXAM: CT -CONTRAST INDUCED NEPHROPATHY RISK FACTORS: Not applicable CREATININE: No results found for: CREAT , EGFROTH , EGFRAA P.O.C.T. RESULTS: POC done: Yes, See Lab Tab June 27, 2024 TREATMENT: N/A PERIPHERAL IV DATA: Ambulatory: A peripheral IV was started in the Right antecubital site with a Angio cath: 22 gauge. RADIOLOGY DEPARTMENT: CT; Exam(s) Completed: Urogram SIGNATURE: RT Judson(R) PATIENT NAME: Shandra Bridges DATE: June 27, 2024 TIME: 11:38 AM [facility] 06-27-2024 Procedure note Radiology Service Progress Note DATE OF SERVICE: June 27, 2024 TIME: 11:38 AM PATIENT IDENTITY VERIFICATION COMPLETED USING TWO (2) STANDARD IDENTIFIERS: Name and Date of confirmed by patient verbally and Name and Date of confirmed by identification band. FALL SCREENING: Has the patient had 2 falls in the last year or 1 fall with injury or currently using an Ambulatory Assistive Device (Walker, Cane, Wheelchair, Crutches, etc.)? No PATIENT GENDER DATA: Female. status: : No status: NO. PATIENT RELEVANT IMPLANT DATA REVIEWED: Not Applicable PATIENT PRESENTS WITH AN IMPLANTABLE OR ATTACHED FIELD ARTILLERY CREWMEMBER: No ALLERGIES: Reviewed and unchanged CONTRAST ALLERGY: NO. EXAM: CT -CONTRAST INDUCED NEPHROPATHY RISK FACTORS: Not applicable CREATININE: No results found for: CREAT , EGFROTH , EGFRAA P.O.C.T. RESULTS: POC done: Yes, See Lab Tab June 27, 2024 TREATMENT: N/A PERIPHERAL IV DATA: Ambulatory: A peripheral IV was started in the Right antecubital site with a Angio cath: 22 gauge. RADIOLOGY DEPARTMENT: CT; Exam(s) Completed: Urogram SIGNATURE: RT Judson(R) PATIENT NAME: Shandra Bridges DATE: June 27, 2024 TIME: 11:38 AM documented in this encounter [facility] 06-11-2024 Note HNO ID: [id number] Author: LY STEEL MD Service: ? Author Type: Physician Type: Progress Notes Filed: 07/18/2024 11:12 Note Text: Cysto 07-18-24 Recurrent UTIs with frequency and feeling of pressure. UA 06-27-24 = -ve CTU 06-27-24 = -ve [facility] 06-11-2024 History of Present illness Narrative Cysto 07-18-24 Recurrent UTIs with frequency and feeling of pressure. UA = culture = CTU 06-27-24 = documented in this encounter [facility] 06-07-2024 Instructions Marlyn Rome - 06/07/2024 4:14 PM EDT UA + culture + CTU Schedule cystoscopy documented in this encounter [facility] 06-07-2024 History of Present illness Narrative Shandra Cyrus [address] [place] [address] [place] [address] is a 23 year old female with [...] Ly Steel M.D. documented in this encounter [facility] 06-07-2024 Note HNO ID: [id number] Author: ?, ?, ? Service: ? Author Type: ? Type: Progress Notes Filed: 06/07/2024 16:18 Note Text: Shandra Bridges [address] [place] [address] [place] [address] is a 23 year old female with [...] in the presence of Dr. Steel. Marlyn Rome, Scribe Provider Attestation: Ly Bonilla M.D., personally performed the services described in this documentation. All medical record entries made by the scribe were at my direction and in my presence. I have reviewed the chart and discharge instructions (if applicable) and agree that the record reflects my personal performance and is accurate and complete. Ly Steel M.D. [facility] 04-17-2024 Note Chief Complaint Referral from Joceline [...] with voice recognition artificial intelligence software, specifically [employer] and or [employer]. Substitutions may have occurred due to the [...] day(s), # 30 tab(s), Refills(s) 1, Pharmacy: [id number], 175, cm, 04/17/24 13:52:00 EDT, Height/Length [...] rule out distal ureteral stone. [place] [place] [facility] [place]. If unable to visualize distal ureters, will order IVP to rule out ureteral stone. Ordered: 10644 Measure Post Void residual urine and/or bladder capacity by US- non-imaging Urnls Dip Stick Auto w/o Microscopy POC 17752 3. Bladder spasms (N32.89: Other specified disorders [...] Rx sent t (more content not included)... [facility] Comment on above: Result Comment: Elec tronically Signed By: SATYA Steven APRN, Divya Ricketts\.br\Date and Time Signed: 04/17/24 15:16 EDT 04-17-2024 Hospital Discharge instructions Patient Education 04/17/2024 15:16:28 Urinary Frequency, [...] to keep your urine pale yellow. ?Take dulb-uvb-tyddumt or prescription medicines. ?Eat foods that are high in fiber, such as beans, whole grains, and fresh fruits and vegetables. ?Limit foods that are high in fat and processed sugars, such as fried or sweet foods. General instructions Take qvps-osn-xmhttqg and prescription medicines only as told by [...] the muscles that help control urination. Take bzht-qgk-igyspgt and prescription medicines only as told by your health care provider. Contact a health care provider if your symptoms do not improve or get worse. This information is not intended to replace advice given to you by your health care provider. Make sure you discuss any questions you have with your health care provider. Document Revised: 06/19/2021 Document Reviewed: 06/19/2021 [employer] Patient Education 2022 [employer]. 04/17/2024 15:16:24 Kidney Stones, Vdnj-ci-Bspw Kidney Stones Kidney stones are rock-like masses [...] Follow these instructions at home: Medicines Take kybq-glm-jqwzdtg and prescription medicines only as told by [...] provider. Document Revised: 07/19/2022 Document Reviewed: 07/19/2022 [employer] Patient Education 2022 [employer]. [facility] 02-24-2023 Evaluation note Encounter Date Diagnosis Assessment [...] understanding and is agreeable to treatment plan cit[employer]uddies Other Evaluation + Plan note No data available for this section [facility] evaluation noteNo assessment information available [facility] Work Phone: Evaluation note* Diagnosis Recurrent UTI- Primary Urinary tract infection, site not specified Urinary frequency Urinary tract infection without hematuria, site unspecified [facility] Diagnosis Recurrent UTI Urinary tract infection, site not specified Urinary frequency Urinary tract infection without hematuria, site unspecified [facility] Diagnosis Recurrent UTI- Primary Urinary tract infection, site not specified [facility] Diagnosis Onset Date Resolution Status Acute otitis media with effusion of both ears acute Cold sore acute UTI (urinary tract infection) acute [facility] Work Phone: Evaluation note* Diagnosis Melanocytic nevus of left upper extremity- Primary Capillary angioma Nevus, non-neoplastic Spider angioma Nevus, non-neoplastic Epidermal inclusion cyst Sebaceous cyst [facility] Diagnosis Acute rhinosinusitis- Primary Non-recurrent acute serous otitis media of both ears Acute swimmer's ear of both sides [facility] Diagnosis Recurrent UTI- Primary Urinary tract infection, site not specified documented in this encounter [facility] Narrative - Reported* Type Description Date Medical History Depression citibuddies Other Progress note No data available for this section [facility] [place] [facility] Chief Complaint and Reason for Visit Chief Complaint New Hire Physical Chief Complaint Dysuria Chief Complaint pillars Chief Complaint Pillars Chief Complaint Pillars clogged ears, possible uti, cold sore Chief Complaint Pillars clogged ears, possible uti, cold sore Dysuria Reason for Visit Acute otitis media w ith effusion of both ears Cold sore UTI (urinary tract infection) Chief Complaint Pillars clogged ears, possible uti, cold sore R30.0 Z23 Reason for Visit Acute otitis media w ith effusion of both ears Cold sore UTI (urinary tract infection) Assessments No Assessments Information Available Advance Directives Advance Directive Response Recorded Date/ Time Advance Directives No June 07 12:21pm Summary Purpose Family History No Family History Records Found Reason for Referral Specialty Diagnoses / Procedures Referred By Milad mccormack Referred To Contact CT IMAGING Diagnoses Recurrent UTI Urinary frequency Urinary tract infection without hematuria, site unspecified Procedures CT UROGRAM WO/W IVCON CT ABD & PELVIS W/WO CONTRST 1+ BODY Ly Garcia MD [address] [place] [address] [place] [address] Referral ID Status Reason Start Date Expiration Date Visits Requested Visits Authorized [id number] Authorized Auto-Generat ed Referral 06/07/2024 07/07/2025 1 1 Additional Source Comments REASON FOR VISIT (unrecogniz ed section and content) Reason Comments Consult Specialty Diagnoses / Procedures Referred By Milad mccormack Referred To Contact CT IMAGING Diagnoses Recurrent UTI Urinary frequency Urinary tract infection without hematuria, site unspecified Procedures CT UROGRAM WO/W IVCON CT ABD & PELVIS W/WO CONTRST 1+ BODY Ly Garcia MD [address] [place] [address] [place] [address] Referral ID Status Reason Start Date Expiration Date V isits Requested Visits Authorized [id number] Closed Auto-Generate d Referral 06/07/2024 07/07/2025 1 1 Reason Comments Cystoscopy-1 Care Teams (unrecognized sec tion and content) Team Status: Active Member Role Status Dates NON STAFF Primary Care Provider Active Team Status: Inactive Member Role Status Dates NON STAFF Primary Care Provider Active Maritza Singh APRN Attending Provider Active Team Status: Inactive Member Role Status Dates NON STAFF Primary Care Provider Active Richi Liu DO BETI Attending Provider Active Team Status: Inactive Member Role Status Dates NON STAFF Primary Care Provider Active Start: June 28, 2024 End: June 28, 2024 Richi BANG , DO CHC Attending Provider Active Start: June 28, 2024 End: June 28, 2024 Team Status: Inactive Member Role Status Dates NON STAFF Primary Care Provider Active Start: August 03, 2024 End: August 03, 2024 Mariolafarzana Galindo - HERIBERTO FITCHN Attending Provider Active Start: August 03, 2024 End: August 03, 2024 Team Status: Inactive Member Role Status Dates Mariola Galindo - CONSTANTINE , ADMINISTRATION SPECIALIST Attending Provider Active Start: August 03, 2024 End: August 03, 2024 Team Status: Inactive Member Role Status Dates NON STAFF Primary Care Provider Active Start: August 03, 2024 End: August 03, 2024 Mariola Galindo APRN Attending Provider Active S tart: August 03, 2024 End: August 03, 2024 Team Status: Inactive Member Role Status Dates Mariola Galindo APRN Attending Provider Active S tart: August 03, 2024 End: August 03, 2024 Team Status: Inactive Member Role Status Dates Richi BANG , DO CHC Attending Provider Active Start: September 12, 2024 End: September 12, 2024 Radio/Tv Technician Relationship Specialty Start Date End Date Aashish Chand MD [address] [place] [address] [place] [address] PCP - General Family Medicine 05/05/23 Radio/Tv Technician Relationship Specialty Start Date End Date Aashish Chand MD [address] [place] [address] [place] [address] PCP - General Family Medicine 05/05/23 Radio/Tv Technician Relationship Specialty Start Date End Date Aashish Chand MD [address] [facility] [place] [address] PCP - General Family Medicine 05/05/23 Goals (unrecognized section and content) Goals may be documented in a n alternate section INFORMATION SOURCE (unrecogn ized section and content) DATE CREATED AUTHOR 04/19/2024 [facility] DATE CREATED AUTHOR AUTHOR'S ORGANIZ ATION 07/20/2024 [facility] DATE CREATED AUTHOR AUTHOR'S ORGANIZ ATION 10/14/2024 [facility] DATE CREATED AUTHOR AUTHOR'S ORGANIZ ATION 03/02/2025 [facility] EPIC Source Comments (unrecognize d section and content) In the event this informatio n is protected by the Federal Confidentiality of Alcohol and Drug Abuse Patient Records regulations: The Federal rules restrict any use of the information to criminally investigate or prosecute any alcohol or drug abuse patient.[facility] the event this information is protected by the Federal Confidentiality of Alcohol and Drug Abuse Patient Records regulations: The Federal rules restrict any use of the information to criminally investigate or prosecute any alcohol or drug abuse patient.[facility] the event this information is protected by the Federal Confidentiality of Alcohol and Drug Abuse Patient Records regulations: The Federal rules restrict any use of the information to criminally investigate or prosecute any alcohol or drug abuse patient.[facility] the event this information is protected by the Federal Confidentiality of Alcohol and Drug Abuse Patient Records regulations: The Federal rules restrict any use of the information to criminally investigate or prosecute any alcohol or drug abuse patient.[facility] the event this information is protected by the Federal Confidentiality of Alcohol and Drug Abuse Patient Records regulations: The Federal rules restrict any use of the information to criminally investigate or prosecute any alcohol or drug abuse patient.[facility] Hospital[facility] the event this information is protected by the Federal Confidentiality of Alcohol and Drug Abuse Patient Records regulations: The Federal rules restrict any use of the information to criminally investigate or prosecute any alcohol or drug abuse patient.[facility] FOR RECORDS PERTAINING TO PATIENTS WHO ARE [...] BE BASED ON THE PRIMARY CLINICAL RECORDS. [facility] [employer] [facility]. provides no warranty or guarantee of the accuracy or completeness of information in this document.
[2025-04-30 12:35] LABS: Bilirubin Urine NEGATIVE (NEGATIVE); Blood Urine NEGATIVE (NEGATIVE); Clarity Urine CLEAR (CLEAR); Color Urine LT. YELLOW (YELLOW); Glucose Urine UA NEGATIVE (NEGATIVE); Ketones Urine NEGATIVE (NEGATIVE); Leukocyte Esterase Urine NEGATIVE (NEGATIVE); Nitrite Urine NEGATIVE (NEGATIVE); Protein Urine NEGATIVE (NEG/TRACE); Specific Gravity Urine <=1.005 (1.005-1.025); Urobilinogen Urine 0.2 EU/dL (0.2-1.0); pH Urine 7.5 (5.0-9.0)
[2025-04-30 12:56] LABS: RBC Urine 0-2 #/HPF (0-2); WBC Urine 0-2 #/HPF (NONE SEEN)
[2025-04-30 12:57] LABS: Bacteria Urine TRACE #/HPF (NONE SEEN); Cast Seen? NONE SEEN #/LPF (NONE SEEN); Crystals Seen? None Seen #/HPF (None Seen); Mucus Urine TRACE (NONE SEEN); Squamous Epithelial Cell Urine MODERATE #/LPF (NONE/RARE)
== END 2025-04-30 12:01 | disposition home or self-care (01) ==
LOC: LAB 12:00
PROVIDERS: PCP Nurse Practitioner Family
DX: N39.0 Urinary tract infection, site not specified (principal)
CPT/HCPCS: 81001; 87086